=== PATIENT | female | born 1965 ===

== ENCOUNTER 2020-05-06 09:27 | Outpatient (REF) | payer OTHER, SELFPAY ==
[2020-05-06 10:37] LABS: Blood Urea Nitrogen 17 mg/dL (9-16); Estimated Glomerular Filt Rate > 60
== END 2020-05-06 09:28 | disposition home or self-care (01) ==
LOC: HO.10HDL 09:27
PROVIDERS: Visit Provider Surgery
DX: Z80.3 Family history of malignant neoplasm of breast (principal); Z91.89 Other specified personal risk factors, not elsewhere classified
CPT/HCPCS: 82565; 84520

== ENCOUNTER 2020-06-13 09:38 | Outpatient (REF) | payer OTHER, SELFPAY ==
--- NOTE | 2020-06-13 | MR_ITS ---
EXAMINATION: MR BREAST WITHOUT AND WITH CONTRAST, BILATERAL CLINICAL INFORMATION: High-risk screening. COMPARISON: MRI 06/09/2019, 04/23/2018 TECHNIQUE: Imaging was performed with a dedicated breast coil. Prior to the administration of contrast, bilateral axial T1 and bilateral axial T2 weighted sequences were obtained. After the uneventful administration of?6.5 mL of Gadavist, dynamic contrast-enhanced VIBRANT series through the breasts in the axial plane were performed. Subtracted images were performed and reviewed. A delayed sagittal sequence through both breasts was acquired. Additionally, CAD post-processing, including maximum intensity projections, 3-D reconstructions and kinetic analysis, were performed an independent workstation and reviewed by the interpreting radiologist is a portion of this exam. FINDINGS: The patient's fibroglandular tissue demonstrates minimal background enhancement. LEFT BREAST: No suspicious masslike or non-masslike enhancement. No abnormal skin thickening or nipple retraction. No abnormal architectural distortion. Review of the T2 weighted images demonstrates no fibrocystic changes or dilated ducts. Review of kinetic images reveals no additional findings. RIGHT BREAST: No suspicious masslike or non-masslike enhancement. No abnormal skin thickening or nipple retraction. No abnormal architectural distortion. Review of the T2 weighted images demonstrates no fibrocystic changes or dilated ducts. Review of kinetic images reveals no additional findings. There is no suspicious internal mammary chain or axillary adenopathy. Limited views of the chest and abdomen are unremarkable. MR/MR breast BI wo/w con IMPRESSION: No MR specific evidence of malignancy. ASSESSMENT: LEFT BREAST: BI-RADS 1-Negative RIGHT BREAST: BI-RADS 1-Negative RECOMMENDATIONS: Continued annual mammographic surveillance. Further breast MRI as risk factors dictate.
== END 2020-06-13 09:39 | disposition home or self-care (01) ==
LOC: HO.MRI 09:38
PROVIDERS: PCP Internal Medicine; Visit Provider Surgery
DX: Z12.31 Encounter for screening mammogram for malignant neoplasm of breast (principal); Z91.89 Other specified personal risk factors, not elsewhere classified; Z80.3 Family history of malignant neoplasm of breast
CPT/HCPCS: 77049; A9585

== ENCOUNTER → 2020-12-09 10:38 | Outpatient (BNVA) | payer OTHER, SELFPAY | PROVIDERS: PCP Internal Medicine; Referring Provider Internal Medicine; Visit Provider Surgery | DX: Z80.3 Family history of malignant neoplasm of breast (principal); Z12.39 Encounter for other screening for malignant neoplasm of breast | CPT/HCPCS: 99212 ==

== ENCOUNTER 2021-04-18 14:10 | Outpatient (REF) | payer OTHER, SELFPAY | END 2021-04-18 14:11 | disposition home or self-care (01) | LOC: HO.LAB 14:10 | PROVIDERS: PCP Internal Medicine; Visit Provider Internal Medicine | DX: Z20.822 Contact with and (suspected) exposure to COVID-19 (principal) | CPT/HCPCS: C9803; U0003; U0005 ==

== ENCOUNTER 2021-04-19 12:06 | Outpatient (REF) | payer OTHER, SELFPAY ==
--- NOTE | ~2021-04-19 | MM_ITS ---
EXAMINATION: MM SCREENING DIGITAL BREAST TOMOSYNTHESIS, BILATERAL CLINICAL INFORMATION: Screening. Asymptomatic. Family history breast cancer mother, sister. The lifetime risk of breast cancer based on the Tyrer-Cuzick Model is 17%. COMPARISON: Mammography: 03/01/2020, 02/20/2019, 02/18/2018; MRI breasts 06/13/2020. TECHNIQUE: Digital breast tomosynthesis is performed in both the craniocaudal and mediolateral oblique views along with computer-aided detection (CAD). Synthesized 2D images are generated from the tomosynthesis. FINDINGS: There are scattered areas of fibroglandular density (ACR BI-RADS breast composition Category b). Breast tissue composition borders on predominantly fatty. There are no significant masses, abnormal calcifications, or other abnormalities. There is biopsy clip marker central 12:00 right breast mid depth. The axilla and skin contours are unremarkable. MM/MM tomosynthesis screening BI IMPRESSION: No mammographic evidence of malignancy. ASSESSMENT: BI-RADS 1: Negative RECOMMENDATION: Routine annual mammography screening. This patient's information was entered into a reminder system with a target due date for their next mammogram.
== END 2021-04-19 12:07 | disposition home or self-care (01) ==
LOC: HO.MAMMO 12:06
PROVIDERS: PCP Internal Medicine; Visit Provider Internal Medicine
DX: Z12.31 Encounter for screening mammogram for malignant neoplasm of breast (principal)
CPT/HCPCS: 77063; 77067

== ENCOUNTER → 2021-05-31 08:30 | Outpatient (BNVA) | payer OTHER, SELFPAY | PROVIDERS: Visit Provider Advanced Practice Midwife ==

== ENCOUNTER → 2021-06-08 08:50 | Outpatient (BNVA) | payer OTHER, SELFPAY | PROVIDERS: PCP Internal Medicine; Visit Provider Surgery | DX: Z80.3 Family history of malignant neoplasm of breast (principal); Z12.39 Encounter for other screening for malignant neoplasm of breast | CPT/HCPCS: 99212 ==

== ENCOUNTER 2021-06-12 08:02 | Outpatient (REF) | payer OTHER, SELFPAY ==
--- NOTE | ~2021-06-12 | MR_ITS ---
EXAMINATION: MR BREAST WITHOUT AND WITH CONTRAST, BILATERAL CLINICAL INFORMATION: High-risk screening. Mother and sister with breast cancer. COMPARISON: MRI 06/13/2020, 06/09/2019, 04/23/2018 and priors. Mammography from 04/19/2021. TECHNIQUE: Imaging was performed with a dedicated breast coil. Prior to the administration of contrast, bilateral axial T1 and bilateral axial T2 weighted sequences were obtained. After the uneventful administration of?7 mL of Gadavist, dynamic contrast-enhanced VIBRANT series through the breasts in the axial plane were performed. Subtracted images were performed and reviewed. A delayed sagittal sequence through both breasts was acquired. Additionally, CAD post-processing, including maximum intensity projections, 3-D reconstructions and kinetic analysis, were performed an independent workstation and reviewed by the interpreting radiologist is a portion of this exam. FINDINGS: The breasts are comprised of scattered fibroglandular elements. The tissue undergoes mild background enhancement. LEFT BREAST: No suspicious mass, dominant non-mass enhancement or architectural distortion. Some minor artifact from positioning within the coil. No change from priors noted. RIGHT BREAST: No suspicious mass, dominant non-mass enhancement or architectural distortion. Some artifact from positioning within the coil. No significant change from prior noted. There is no suspicious internal mammary chain or axillary adenopathy. Limited views of the chest and abdomen are unremarkable. Unable to process examination through Renetta CAD. MR/MR breast BI wo/w con IMPRESSION: No MR specific evidence of malignancy. Technically incomplete examination. ASSESSMENT: LEFT BREAST: BI-RADS 0 RIGHT BREAST: BI-RADS 0 RECOMMENDATIONS: Repeat contrast portion of examination for CAD postprocessing.
== END 2021-06-12 08:03 | disposition home or self-care (01) ==
LOC: HO.MRI 08:02
PROVIDERS: Visit Provider Surgery
DX: Z12.39 Encounter for other screening for malignant neoplasm of breast (principal)
CPT/HCPCS: 77049; A9585

== ENCOUNTER 2021-07-10 10:29 | Outpatient (REF) | payer OTHER, SELFPAY ==
[2021-07-10 12:03] LABS: COVID-19 Test Negative (Negative)
== END 2021-07-10 10:30 | disposition home or self-care (01) ==
LOC: HO.LAB 10:29
PROVIDERS: PCP Internal Medicine; Visit Provider Internal Medicine
DX: Z20.822 Contact with and (suspected) exposure to COVID-19 (principal)
CPT/HCPCS: 36415; 87635; C9803

== ENCOUNTER 2021-08-14 07:48 | Outpatient (REF) | payer OTHER, SELFPAY ==
[2021-08-14 10:21] LABS: Basophils Absolute Auto 0.1 X10*3/uL (0.0-0.2); Eosinophils Absolute Auto 0.1 X10*3/uL (0.0-0.4); Eosinophils Percent Auto 1.4 % (0-4); Hematocrit 39.7 % (37.0-47.0); Imm Gran Abs Auto 0.01 X10*3/uL (0.00-0.03); Imm Gran Pct Auto 0.2 % (0.0-0.4); Lymphocytes Absolute Auto 1.8 X10*3/uL (1.2-4.9); Lymphocytes Percent Auto 30.9 % (20-40); MANUAL DIFF FLAG NO; Mean Corpuscular HGB Conc 32.7 g/dl (31.0-35.0); Mean Corpuscular Hemoglobin 30.2 pg (27.0-33.0); Mean Corpuscular Volume 92.3 fL (80.0-98.0); Mean Platelet Volume 9.1 fL (9.4-12.3); Monocytes Absolute Auto 0.4 X10*3/uL (0.1-1.2); Monocytes Percent Auto 7.1 % (2-11); Neutrophils Absolute Auto 3.5 x10*3/uL (2.0-8.3); Neutrophils Percent Auto 59.4 % (45-73); Platelet Count 309 X10*3/uL (160-400); White Blood Count 5.8 X10*3/uL (4.8-10.8)
[2021-08-14 11:09] LABS: Alanine Aminotransferase 24 U/L (0-31); Albumin Level 4.3 g/dL (3.5-5.0); Alkaline Phosphatase 50 U/L (39-117); Anion Gap 12 (12-20); Aspartate Amino Transferase 22 U/L (5-31); Bilirubin Total 0.5 mg/dL (0.0-1.0); Blood Urea Nitrogen 20 mg/dL (9-16); Calcium 9.8 mg/dL (8.4-10.2); Carbon Dioxide 28 mmol/L (22-29); Chloride 105 mmol/L (96-108); Cholesterol 236 mg/dL; Estimated Glomerular Filt Rate > 60; Glucose Random 82 mg/dL (60-115); HDL Cholesterol 87 mg/dL; LDL Cholesterol Calculated 132 mg/dl; Potassium 4.3 mmol/L (3.3-5.1); Sodium 141 mmol/L (135-145); Total Protein 7.4 g/dL (6.5-8.0); Triglycerides 88 mg/dL
[2021-08-14 11:17] LABS: Free T4 (Free Thyroxine) 1.04 ng/dL (0.71-1.85); Thyroid Stimulating Hormone 1.49 uIU/mL (0.32-4.0); Vitamin D 25-OH Total 27.4 ng/mL (>30)
[2021-08-14 11:39] LABS: Folate 16.6 ng/mL (> or = 4.0); Vitamin B12 > 2000 pg/mL (200-900)
== END 2021-08-14 07:49 | disposition home or self-care (01) ==
LOC: HO.10HDL 07:48
PROVIDERS: Visit Provider Internal Medicine
DX: E03.9 Hypothyroidism, unspecified (principal); E78.00 Pure hypercholesterolemia, unspecified
CPT/HCPCS: 36415; 80053; 80061; 82306; 82607; 82746; 84439; 84443; 85025

== ENCOUNTER 2021-08-30 10:12 | Outpatient (REF) | payer OTHER, SELFPAY ==
[2021-08-30 10:25] LABS: COVID-19 Test Positive (Negative)
== END 2021-08-30 10:13 | disposition home or self-care (01) ==
LOC: HO.LAB 10:12
PROVIDERS: Visit Provider Internal Medicine
DX: Z20.822 Contact with and (suspected) exposure to COVID-19 (principal)
CPT/HCPCS: 87635; C9803

== ENCOUNTER 2021-09-06 12:13 | Outpatient (REF) | payer OTHER, SELFPAY ==
[2021-09-06 12:56] LABS: COVID-19 Test Negative (Negative); IDNOW Serial# 16C4AD1C
== END 2021-09-06 12:14 | disposition home or self-care (01) ==
LOC: HO.LAB 12:13
PROVIDERS: Visit Provider Internal Medicine
DX: Z20.822 Contact with and (suspected) exposure to COVID-19 (principal)
CPT/HCPCS: 87635; C9803

== ENCOUNTER → 2021-12-07 10:03 | Outpatient (BNVA) | payer OTHER, SELFPAY | PROVIDERS: PCP Internal Medicine; Referring Provider Internal Medicine; Visit Provider Surgery | DX: Z12.39 Encounter for other screening for malignant neoplasm of breast (principal) | CPT/HCPCS: 99212 ==

== ENCOUNTER 2022-03-19 11:23 | Outpatient (REF) | payer OTHER, SELFPAY ==
[2022-03-19 13:54] LABS: Appearance Urine Turbid; Color Urine Dark Yellow; Glucose Urine UA Negative (Negative); Leukocyte Esterase Urine Negative (Negative); Nitrite Urine Negative (Negative); PH 5.5 (5.0-8.0); Specific Gravity - Urine >= 1.030 (1.005-1.025); Urine Blood Negative (Negative); Urine Ketones Trace mg/dL (Negative); Urine Protein Trace mg/dL (Neg-Trace)
== END 2022-03-19 11:24 | disposition home or self-care (01) ==
LOC: HO.10HDL 11:23
PROVIDERS: Visit Provider Internal Medicine
DX: R30.0 Dysuria (principal)
CPT/HCPCS: 81003

== ENCOUNTER 2022-04-26 11:23 | Outpatient (REF) | payer OTHER, SELFPAY ==
--- NOTE | ~2022-04-26 | MM_ITS ---
EXAMINATION: MM SCREENING DIGITAL BREAST TOMOSYNTHESIS, BILATERAL CLINICAL INFORMATION: Screening. Asymptomatic. Family history breast cancer, mother, sister. The lifetime risk of breast cancer based on the Tyrer-Cuzick Model is 16%. COMPARISON: Mammography: 04/19/2021, 03/01/2020, 02/20/2019; MRI breasts 06/12/2021. TECHNIQUE: Digital breast tomosynthesis is performed in both the craniocaudal and mediolateral oblique views along with computer-aided detection (CAD). Synthesized 2D images are generated from the tomosynthesis. FINDINGS: There are scattered areas of fibroglandular density (ACR BI-RADS breast composition Category b). There are no significant masses, abnormal calcifications, or other abnormalities. Parenchymal pattern is similar to prior studies. There is no developing density or architectural abnormality. There is biopsy clip marker again seen central upper right breast mid depth. The axilla and skin contours are unremarkable. No significant changes. MM/MM tomosynthesis screening BI IMPRESSION: No mammographic evidence of malignancy. ASSESSMENT: BI-RADS 1: Negative RECOMMENDATION: Routine annual mammography screening. This patient's information was entered into a reminder system with a target due date for their next mammogram.
== END 2022-04-26 11:24 | disposition home or self-care (01) ==
LOC: HO.MAMMO 11:23
PROVIDERS: PCP Internal Medicine; Visit Provider Internal Medicine
DX: Z12.31 Encounter for screening mammogram for malignant neoplasm of breast (principal)
CPT/HCPCS: 77063; 77067

== ENCOUNTER → 2022-07-03 12:50 | Outpatient (BNVA) | payer OTHER, SELFPAY | PROVIDERS: PCP Internal Medicine; Visit Provider Surgery | DX: Z91.89 Other specified personal risk factors, not elsewhere classified (principal); Z80.3 Family history of malignant neoplasm of breast | CPT/HCPCS: 99212 ==

== ENCOUNTER 2022-07-18 09:31 | Outpatient (REF) | payer OTHER, SELFPAY ==
[2022-07-19 09:28] LABS: HPV mRNA E6/E7 rflx Not Detected (Not Detected)
== END 2022-07-18 09:32 | disposition home or self-care (01) ==
LOC: HO.LNP 09:31
PROVIDERS: PCP Internal Medicine; Visit Provider Advanced Practice Midwife
DX: Z01.419 Encounter for gynecological examination (general) (routine) without abnormal findings (principal); Z11.51 Encounter for screening for human papillomavirus (HPV); N95.1 Menopausal and female climacteric states
CPT/HCPCS: 87624; 88142

== ENCOUNTER 2022-08-23 08:55 | Outpatient (REF) | payer OTHER, SELFPAY ==
--- NOTE | ~2022-08-23 | MR_ITS ---
EXAMINATION: MR BREAST WITHOUT AND WITH CONTRAST, BILATERAL CLINICAL INFORMATION: High-risk screening. Family history of breast cancer including mother, sister, maternal aunt, maternal grandmother. COMPARISON: MRI 06/12/2021, 06/13/2020 TECHNIQUE: Imaging was performed with a dedicated breast coil. Prior to the administration of contrast, bilateral axial T1 and bilateral axial T2 weighted sequences were obtained. After the uneventful administration of?7.5 mL of Gadavist, dynamic contrast-enhanced VIBRANT series through the breasts in the axial plane were performed. Subtracted images were performed and reviewed. A delayed sagittal sequence through both breasts was acquired. Additionally, CAD post-processing, including maximum intensity projections, 3-D reconstructions and kinetic analysis, were performed an independent workstation and reviewed by the interpreting radiologist is a portion of this exam. FINDINGS: The patient's fibroglandular tissue demonstrates moderate background enhancement. LEFT BREAST: No suspicious masslike or non-masslike enhancement. No abnormal skin thickening or nipple retraction. No abnormal architectural distortion. Review of the T2 weighted images demonstrates no fibrocystic changes or dilated ducts. Review of kinetic images reveals no additional findings. RIGHT BREAST: No suspicious masslike or non-masslike enhancement. No abnormal skin thickening or nipple retraction. No abnormal architectural distortion. Review of the T2 weighted images demonstrates no fibrocystic changes or dilated ducts. Review of kinetic images reveals no additional findings. There is no suspicious internal mammary chain or axillary adenopathy. Limited views of the chest and abdomen are unremarkable. MR/MR breast BI wo/w con IMPRESSION: No MR specific evidence of malignancy. ASSESSMENT: LEFT BREAST: BI-RADS 1-Negative RIGHT BREAST: BI-RADS 1-Negative RECOMMENDATIONS: Clinical follow-up. Continued annual mammographic surveillance. Further breast MRI as risk factors dictate.
== END 2022-08-23 08:56 | disposition home or self-care (01) ==
LOC: HO.MRI 08:55
PROVIDERS: PCP Internal Medicine; Visit Provider Surgery
DX: Z12.39 Encounter for other screening for malignant neoplasm of breast (principal)
CPT/HCPCS: 77049; A9585

== ENCOUNTER 2022-10-09 08:08 | Outpatient (REF) | payer OTHER, SELFPAY ==
[2022-10-09 10:46] LABS: MANUAL DIFF FLAG NO
[2022-10-09 10:55] LABS: Basophils Absolute Auto 0.1 X10*3/uL (0.0-0.2); Eosinophils Absolute Auto 0.1 X10*3/uL (0.0-0.4); Hematocrit 39.4 % (37.0-47.0); Hemoglobin 12.6 g/dl (12.0-16.0); Imm Gran Abs Auto 0.01 X10*3/uL (0.00-0.03); Imm Gran Pct Auto 0.1 % (0.0-0.4); Lymphocytes Absolute Auto 1.9 X10*3/uL (1.2-4.9); Lymphocytes Percent Auto 26.9 % (20-40); Mean Corpuscular Hemoglobin 29.4 pg (27.0-33.0); Mean Corpuscular Volume 91.8 fL (80.0-98.0); Mean Platelet Volume 9.6 fL (9.4-12.3); Monocytes Absolute Auto 0.4 X10*3/uL (0.1-1.2); Monocytes Percent Auto 5.6 % (2-11); Neutrophils Absolute Auto 4.7 x10*3/uL (2.0-8.3); Neutrophils Percent Auto 65.4 % (45-73); Platelet Count 336 X10*3/uL (160-400); Red Blood Count 4.29 X10*6/uL (4.20-5.50); Red Cell Distribution Width 14.1 % (11.0-16.0); White Blood Count 7.1 X10*3/uL (4.8-10.8)
[2022-10-09 11:28] LABS: Erythrocyte Sedimentation Rate 7 MM/HR (0-20)
[2022-10-09 11:49] LABS: Alanine Aminotransferase 20 U/L (0-31); Albumin Level 4.2 g/dL (3.5-5.0); Alkaline Phosphatase 56 U/L (39-117); Anion Gap 10 (12-20); Aspartate Amino Transferase 19 U/L (5-31); Bilirubin Total 0.7 mg/dL (0.0-1.0); Blood Urea Nitrogen 23 mg/dL (9-16); C Reactive Protein 0.15 mg/dL (< or = 0.50); Calcium 9.5 mg/dL (8.4-10.2); Carbon Dioxide 29 mmol/L (22-29); Chloride 107 mmol/L (96-108); Cholesterol 227 mg/dL; Estimated Glomerular Filt Rate > 60; Glucose Random 89 mg/dL (60-115); HDL Cholesterol 88 mg/dL; LDL Cholesterol Calculated 123 mg/dl; Potassium 4.3 mmol/L (3.3-5.1); Sodium 142 mmol/L (135-145); Total Protein 6.9 g/dL (6.5-8.0); Triglycerides 83 mg/dL
[2022-10-09 12:10] LABS: Free T4 (Free Thyroxine) 0.94 ng/dL (0.71-1.85); Thyroid Stimulating Hormone 0.82 uIU/mL (0.32-4.0); Vitamin B12 1129 pg/mL (200-900); Vitamin D 25-OH Total 29.2 ng/mL (>30)
== END 2022-10-09 08:09 | disposition home or self-care (01) ==
LOC: HO.10HDL 08:08
PROVIDERS: Visit Provider Internal Medicine
DX: M06.9 Rheumatoid arthritis, unspecified (principal); E78.00 Pure hypercholesterolemia, unspecified
CPT/HCPCS: 36415; 80053; 80061; 82306; 82607; 82746; 84439; 84443; 85025; 85652; 86140

== ENCOUNTER → 2022-12-25 11:34 | Outpatient (BNVA) | payer OTHER, SELFPAY | PROVIDERS: PCP Internal Medicine; Visit Provider Surgery | DX: Z12.39 Encounter for other screening for malignant neoplasm of breast (principal) | CPT/HCPCS: 99212 ==

== ENCOUNTER 2023-02-26 15:22 | Outpatient (AMB) | payer OTHER, SELFPAY ==
[2023-02-26 15:32] VITALS: BP 122/80; PULSE 77; O2SAT 98; BMI 29.8
--- NOTE | 2023-02-26 15:32 | A.OFFPC_ITS ---
Vital Signs 02/26/23 15:32 Height 5 ft 2 in Weight 163 lb BMI 29.8 BP 122/80 Blood Pressure Location Lt brachial Position Sitting Pulse 77 Pulse Source Pulse Oximeter Temp Source Skin Pulse Oximetry (%) 98 Oxygen Delivery Method Room Air Intake Visit Reasons: surgery 03/19/23 Intake Note: Patient is here for a Pre-op for a panniculectomy scheduled with [facility] Hernandez on 03/19/23 Aircraft Avionics Technician Required: Yes Aircraft Avionics Technician Language: Ukrainian Allergies leflunomide Allergy (Unknown, Verified 02/26/23 15:39) abd pain oseltamivir Adverse Reaction (Unknown, Verified 02/26/23 15:39) dizziness, headaches, ringing in the ears ?IVP dye Allergy (Unknown, Uncoded 02/26/23 15:39) headache, nausea unknown arthrits medication Allergy (Unknown, Uncoded 02/26/23 15:39) stomach upset Contrast Allergy PreMed Pack Adverse Reaction (Unknown, Uncoded 02/26/23 15:39) stomach upset Medication List - Last Reconciled 02/26/23 by MORALES Holbrook albuterol sulfate 90 mcg/actuation (ProAir HFA) 2 puffs inhalation QID PRN cholecalciferol (vitamin D3) 50 mcg PO DAILY 90 days folic acid 1 mg PO DAILY hydrocodone-acetaminophen 7.5-325 mg 1 tab PO QID PRN ibuprofen 800 mg PO TID loratadine (Allergy Relief (loratadine)) 10 mg PO DAILY methotrexate sodium 17.5 mg PO QWEEK mometasone 0.1% 1 appl topical DAILY mupirocin 2% 1 appl topical BID omeprazole 20 mg PO DAILY Tobacco use date assessed: 02/26/23 Dental Screening Dental Screen Date: 02/26/23 Did you have a dental visit in the last 12 months?: Yes Did you have a dental problem in the last 6 months where you did not have access to dental care?: No Was dental information given to patient?: Patient has dentist HPI surgery 03/19/23 HPI Details Patient is a 57-year-old female who presents today for preop clearance. Pt of Dr. Ambrocio Surgery: Panniculectomy Date: 03/19/2023 Surgeon: Dr. Hernandez Location: [place], [place] Anaesthesia: General. Patient reports history of general anesthesia in the past that she tolerated well. Patient denies history of perioperative hypothermia or blood clotting disorders. She is not on anticoagulation. Medical history significant for asthma, allergic rhinitis, history of sleeve gastrectomy in 2016, rheumatoid arthritis-followed by Rheumatology, eczema, hypercholesterolemia, abdominal panniculus, GERD. Patient denies shortness of breath or chest pain. Patient is a Ukrainian-speaking and Bea was helping with interpretation. [facility] Medical History Allergic rhinitis Asthma Breast cancer screening, high risk patient Cervical cancer screening Hypothyroid Lumbar degenerative disc disease Rheumatoid arthritis Vitamin D deficiency Well woman exam with routine gynecological exam Surgical History H/O tubal ligation History of breast biopsy History of cholecystectomy History of gastric surgery (12/2015) History of removal of laparoscopic gastric banding device (10/03/15) History of sleeve gastrectomy Hx of laparoscopic gastric banding (01/2010) Family History Father Family history of prostate cancer, Onset Age: 70 Mother History of breast cancer, Onset Age: 55 Sister History of breast cancer, Onset Age: 47 Maternal Grandmother History of breast cancer, Onset Age: 58 Colon cancer Maternal Aunt History of breast cancer, Onset Age: 37 Maternal Aunt History of breast cancer, Onset Age: 40 Social History Housing: Apartment Alcohol intake: current Patient Tobacco Use Status: Never used Tobacco e-Cigarette/Vaping Use: Never Used Second Hand Smoke Exposure: No Current occupational status: unemployed Cognitive needs: No Hearing needs: No Vision needs: No Female Reproductive History Menstrual Age of Menarche: 8 Questionnaire Thrive Questionnaire Date Thrive assessed: 11/06/22 AUDIT C Alcohol Use Questionnaire (AUDIT-C) 1. How often do you have a drink containing alcohol?: Monthly or less 2. How many drinks containing alcohol do you have on a typical day when you are drinking?: 1 or 2 3. How often do you have six or more drinks on one occasion?: Never Total Score: 1 Score Reviewed/Action Taken: No JASMIN-7 AMB Questionnaire JASMIN-7 Date JASMIN - 7 assessed: 11/06/22 Source: Developed by Drs. Jean Pierre Mcdaniel, Mayra Kilgore, Jerrod Ruth and colleagues, with an educational christiano from [employer]. Review of Systems Const Denies body aches, Denies chills, Denies fever(s) and Denies headache(s) Eyes Denies change in vision ENT Denies dizziness, Denies otalgia, Denies headache(s), Denies nasal discharge, Denies sinus pain and Denies sore throat Card Denies chest pain, Denies edema, Denies lightheadedness and Denies dyspnea Resp Denies cough, Denies dyspnea and Denies wheezing GI Denies constipation, Denies diarrhea, Denies nausea and Denies vomiting Denies dysuria Musc Denies myalgias and Reports arthralgias (Right knee) Skin/Breast Details: Abdomen with excess skin Denies rash Neuro Denies dizziness and Denies headache(s) Aller/Immun Denies wheezing Physical exam (Primary Care) Vital Signs: Last Vital Signs Pulse 77 02/26/23 15:32 BP 122/80 02/26/23 15:32 Pulse Ox 98 02/26/23 15:32 Oxygen Delivery Method Room Air 02/26/23 15:32 BMI result Body Mass Index 29.8 Tobacco/Smoking Status: Tobacco use Status Tobacco use date assessed 02/26/23 02/26/23 15:37 Patient Tobacco Use Status Never used Tobacco 02/26/23 15:33 Tobacco use type 07/03/21 15:21 e-Cigarette/Vaping Use Never Used 02/26/23 15:33 Thrive Assessment: Date of Thrive Assessment Date Thrive assessed 11/06/22 02/26/23 15:33 Const General: cooperative and no acute distress Orientation/consciousness: patient oriented x3 HENMT Head: Yes normocephalic and Yes atraumatic Ears: TM's normal bilaterally Face and sinus: Yes sinuses nontender Mouth: oropharynx normal and moist mucous membranes Throat: Yes posterior oropharynx normal Eyes General: appearance normal, both eyes and all related structures Pupils: Equal, round and reactive pupils present EOM: EOMs intact bilaterally Neck Neck: Yes normal visual inspection, Yes full ROM and Yes no lymphadenopathy Thyroid: Thyroid normal Resp Effort & Inspection: normal respiratory effort and able to speak in complete sentences Auscultation: clear to auscultation bilaterally, no crackles, no rales, no rhonchi and no wheezes Cardio Rate: regular rate Rhythm: regular rhythm Heart sounds: S1 normal heart sound present, S2 normal heart sound present and no murmurs GI Palpation (GI): Soft to palpation, not firm, nontender, no guarding, not rigid and no hepatosplenomegaly Auscultation: normal bowel sounds General: No CVA tenderness Back/Spine/Pelvis Back: No CVA tenderness Skin Other: Low abdomen with abdominal fold General skin exam: no rashes or lesions noted Neuro General: patient oriented x3 Cranial nerves: Yes Equal, round and reactive pupils present Gait exam (Neuro): Normal gait present Extrem General: Yes full ROM and No edema Results Reviewed Results Reviewed: Laboratory Tests 02/27/23 02/27/23 02/27/23 09:58 09:58 09:58 WBC 5.9 RBC 4.34 Hgb 12.6 Hct 39.4 MCV 90.8 MCH 29.0 MCHC 32.0 RDW 13.9 Plt Count 335 MPV 9.2 L Absolute Nucleated RBC 0.000 Nucleated RBC % (auto) 0.0 PT 10.9 L INR 0.9 Sodium 141 Potassium 4.0 Chloride 108 Carbon Dioxide 27 Anion Gap 10 L BUN 23 H Creatinine 0.71 Estim Creat Clear Calc Not Reportable Estimated GFR > 60 Random Glucose 91 Calcium 9.6 Total Bilirubin 0.4 AST 18 ALT 21 Alkaline Phosphatase 65 Total Protein 7.3 Albumin 4.1 TSH 1.42 Assessment and Plan Assessment & Plan (1) Preoperative clearance: Code(s): Z01.818 - Encounter for other preprocedural examination Plan: METs > 4; RCRI Class 1 cardiovascular risk 0.4% for an intermediate risk surgery (recent blood work 02/2023) Regarding preop clearance, the patient is at acceptable risk for proposed surgery. Reviewed with the patient that no surgery is completely free of risk and that this examination is to assist the surgeon in reviewing informed consent. Postop care including DVT prophylaxis per surgeon. Patient is cleared for surgery. Patient will be holding methotrexate and ibuprofen 1 week before surgery. On the day of surgery patient can use albuterol inhaler and omeprazole, and all other medications after surgery. Ordering Physician: Imelda Garcia Date of Service: 02/27/23 Procedure(s): ECG 12 lead EKG Accession Number(s): [id number] cc: Imelda Garcia DOPE HEATER~ Test Reason : preop Blood Pressure : / mmHG Vent. Rate : 061 BPM ? ? Atrial Rate : 061 BPM ?? P-R Int : 152 ms? QRS Dur : 070 ms ? ? QT Int : 410 ms ? ? ? P-R-T Axes : 015 043 030 degrees ?? QTc Int : 412 ms ? Normal sinus rhythm Normal ECG When compared with ECG of 09-NOV-2010 12:29, No significant change was found ? Referred By: Imelda Garcia ? Electronically Signed By:Ulisses Valle (2) Abdominal panniculus: Code(s): E65 - Localized adiposity Plan: Surgery: Panniculectomy Date:? 03/19/2023 Surgeon:? Dr. Hernandez Location: [place], [place] Orders: Orders Comprehensive Met. Panel 02/27/23 Z.818 - Encounter for other preprocedural examination TSH reflex Free T4 02/27/23 Z01.818 - Encounter for other preprocedural examination Prothrombin Time INR 02/27/23 Z.818 - Encounter for other preprocedural examination ECG 12 lead EKG 02/27/23 Z.818 - Encounter for other preprocedural examination Complete Blood Count no Diff 02/27/23 Z818 - Encounter for other preprocedural examination Coding Level of Care Code Est Pt Level 3 (05824) Diagnoses Preoperative clearance Z.818 Abdominal panniculus E65
== END 2023-02-26 16:06 | disposition home or self-care (01) ==
PROVIDERS: PCP Internal Medicine; Visit Provider Nurse Practitioner Family
DX: Z01.818 Encounter for other preprocedural examination (principal); E65 Localized adiposity
CPT/HCPCS: 99213

== ENCOUNTER 2023-02-27 09:37 | Outpatient (REF) | payer OTHER, SELFPAY ==
--- NOTE | 2023-02-27 09:44 | ECG_ITS ---
Test Reason : preop Blood Pressure : / mmHG Vent. Rate : 061 BPM Atrial Rate : 061 BPM P-R Int : 152 ms QRS Dur : 070 ms QT Int : 410 ms P-R-T Axes : 015 043 030 degrees QTc Int : 412 ms Normal sinus rhythm Normal ECG When compared with ECG of 09-NOV-2010 12:29, No significant change was found Referred By: Imelda Garcia Electronically Signed By:Ulisses Valle
[2023-02-27 10:45] LABS: Hematocrit 39.4 % (37.0-47.0); Hemoglobin 12.6 g/dl (12.0-16.0); Mean Corpuscular Volume 90.8 fL (80.0-98.0); Mean Platelet Volume 9.2 fL (9.4-12.3); Platelet Count 335 X10*3/uL (160-400); Red Blood Count 4.34 X10*6/uL (4.20-5.50); Red Cell Distribution Width 13.9 % (11.0-16.0); White Blood Count 5.9 X10*3/uL (4.8-10.8)
[2023-02-27 10:49] LABS: INTERNATIONAL NORM RATIO 0.9 (0.9-1.1); Prothrombin Time 10.9 SEC (11.1-13.3)
[2023-02-27 11:31] LABS: Alanine Aminotransferase 21 U/L (0-31); Albumin Level 4.1 g/dL (3.5-5.0); Alkaline Phosphatase 65 U/L (39-117); Anion Gap 10 (12-20); Aspartate Amino Transferase 18 U/L (5-31); Bilirubin Total 0.4 mg/dL (0.0-1.0); Blood Urea Nitrogen 23 mg/dL (9-16); Calcium 9.6 mg/dL (8.4-10.2); Carbon Dioxide 27 mmol/L (22-29); Chloride 108 mmol/L (96-108); Estimated Glomerular Filt Rate > 60; Glucose Random 91 mg/dL (60-115); Sodium 141 mmol/L (135-145); Total Protein 7.3 g/dL (6.5-8.0)
[2023-02-27 11:49] LABS: TSH reflex Free T4 1.42 uIU/mL (0.32-4.0)
== END 2023-02-27 09:38 | disposition home or self-care (01) ==
LOC: HO.LAB 09:37
PROVIDERS: PCP Internal Medicine; Visit Provider Nurse Practitioner Family
DX: Z01.818 Encounter for other preprocedural examination (principal)
CPT/HCPCS: 36415; 80053; 84443; 85027; 85610; 93005

== ENCOUNTER → 2023-02-27 09:44 | Outpatient (BNV) | payer OTHER, SELFPAY | PROVIDERS: PCP Internal Medicine; Visit Provider Internal Medicine Cardiovascular Disease | DX: Z01.818 Encounter for other preprocedural examination (principal); E65 Localized adiposity | CPT/HCPCS: 93010 ==

== ENCOUNTER 2023-05-03 10:30 | Outpatient (REF) | payer OTHER, SELFPAY ==
--- NOTE | ~2023-05-03 | MM_ITS ---
EXAMINATION: MM SCREENING DIGITAL BREAST TOMOSYNTHESIS, BILATERAL CLINICAL INFORMATION: Screening. Asymptomatic. COMPARISON: Mammography: This study is compared with prior exams dating back to 2019. TECHNIQUE: Digital breast tomosynthesis is performed in both the craniocaudal and mediolateral oblique views along with computer-aided detection (CAD). Synthesized 2D images are generated from the tomosynthesis. FINDINGS: There are scattered areas of fibroglandular density (ACR BI-RADS breast composition Category b). There are no significant masses, abnormal calcifications, or other abnormalities. There is a tissue marker in the superior aspect of the right breast from prior benign percutaneous biopsy. MM/MM tomosynthesis screening BI IMPRESSION: No mammographic evidence of malignancy. ASSESSMENT: BI-RADS BI-RADS 2 - Benign Findings RECOMMENDATION: Routine annual mammography screening. 1 year F/U This examination should not preclude the clinical evaluation of a suspicious palpable abnormality. This patient's information was entered into a reminder system with a target due date for their next mammogram.
== END 2023-05-03 10:31 | disposition home or self-care (01) ==
LOC: HO.MAMMO 10:30
PROVIDERS: PCP Internal Medicine; Visit Provider Internal Medicine
DX: Z12.31 Encounter for screening mammogram for malignant neoplasm of breast (principal)
CPT/HCPCS: 77063; 77067

== ENCOUNTER → 2023-05-03 10:30 | Outpatient (BNV) | payer OTHER, SELFPAY | PROVIDERS: PCP Internal Medicine; Visit Provider Radiology Diagnostic Radiology | DX: Z12.31 Encounter for screening mammogram for malignant neoplasm of breast (principal) | CPT/HCPCS: 77063; 77067 ==

== ENCOUNTER 2023-07-02 11:01 | Outpatient (AMB) | payer OTHER, SELFPAY ==
--- NOTE | 2023-07-02 11:03 | A.OFFVIS_ITS ---
Intake Vital Signs 07/02/23 11:09 Height 5 ft 2 in Weight 155 lb BMI 28.3 BP 130/73 Blood Pressure Location Lt brachial Position Sitting Pulse 81 Intake Visit Reasons: 6 months breast exam Intake Note: Patient is seen in office for 6 month follow up visit, breast exam. 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 Design Engineer: Aircraft Structural Design Engineer Present Accompanied by: Self / Same As Patient Allergies leflunomide Allergy (Unknown, Verified 07/02/23 11:04) abd pain oseltamivir Adverse Reaction (Unknown, Verified 07/02/23 11:04) dizziness, headaches, ringing in the ears ?IVP dye Allergy (Unknown, Uncoded 07/02/23 11:04) headache, nausea unknown arthrits medication Allergy (Unknown, Uncoded 07/02/23 11:04) stomach upset Contrast Allergy PreMed Pack Adverse Reaction (Unknown, Uncoded 07/02/23 11:04) stomach upset Medication List - Last Reconciled 07/02/23 by Bud Sabillon MD albuterol sulfate 90 mcg/actuation (ProAir HFA) 2 puffs inhalation QID PRN cholecalciferol (vitamin D3) 50 mcg PO DAILY 90 days folic acid 1 mg PO DAILY hydrocodone-acetaminophen 7.5-325 mg 1 tab PO QID PRN ibuprofen 800 mg PO TID loratadine (Allergy Relief (loratadine)) 10 mg PO DAILY methotrexate sodium 17.5 mg PO QWEEK mometasone 0.1% 1 appl topical DAILY mupirocin 2% 1 appl topical BID omeprazole 20 mg PO DAILY HPI HPI Comments History of Present Illness Details 57-year-old female patient returning for a routine breast examination. She has a strong family history for breast cancer is considered a high risk for breast cancer due to her mother, sisters, maternal grandmother, and maternal aunt having been diagnosed with breast cancer. Her maternal aunt from breast cancer. She denies any new members of her family with cancer. Her initial Alysha score lifetime risk of breast cancer was determined to be 30.9 % placing her at high risk for breast cancer. She was followed by Dr. Bundy and placed on the high risk protocol including yearly mammogram and MRI evaluations. She previously underwent a right breast needle core biopsy which was benign. She reports her menarche at the age of 10, she is , her 1st child was born when she was 17, she did not breast feed her children. She is postmenopausal and her last menstrual period was at the age of 48. She underwent genetic testing in 2019 which confirmed remaining lifetime risk of breast cancer of approximately 31%. No known genetic mutations of clinical significance were identified however 1 significant of unknown significance was identified. Her last mammogram dated 05/03/2023 revealed no mammographic specific evidence of malignancy (BI-RADS 2). MRI dated 09/13/2022 revealed no MR specific evidence of malignancy (BI-RADS 1 right, BI-RADS 1 left). She feels her left breast is larger than the right breast but denies any palpable mass, breast pain or enlarged lymph nodes. [facility] Medical History Well woman exam with routine gynecological exam Lumbar degenerative disc disease Vitamin D deficiency Allergic rhinitis Hypothyroid Asthma Cervical cancer screening Rheumatoid arthritis Breast cancer screening, high risk patient Surgical History H/O tubal ligation History of cholecystectomy History of sleeve gastrectomy History of breast biopsy History of gastric surgery (12/2015) History of removal of laparoscopic gastric banding device (10/03/15) Hx of laparoscopic gastric banding (01/2010) Family History Father Family history of prostate cancer, Onset Age: 70 Mother History of breast cancer, Onset Age: 55 Sister History of breast cancer, Onset Age: 47 Maternal Grandmother History of breast cancer, Onset Age: 58 Colon cancer Maternal Aunt History of breast cancer, Onset Age: 37 Maternal Aunt History of breast cancer, Onset Age: 40 Social History Housing: Apartment Alcohol intake: current Patient Tobacco Use Status: Never used Tobacco e-Cigarette/Vaping Use: Never Used Second Hand Smoke Exposure: No Current occupational status: unemployed Cognitive needs: No Hearing needs: No Vision needs: No Female Reproductive History Menstrual Age of Menarche: 8 Review of Systems Const Denies chills, Denies fever(s), Denies headache(s) and Denies poor appetite ENT Denies dizziness and Denies headache(s) Card Denies chest pain, Denies rapid heart rate, Denies palpitations and Denies slow heart rate Resp Denies chest congestion, Denies cough, Denies pain on inspiration and Denies wheezing GI Denies abdominal pain, Denies bloating, Denies change in stool character, Denies constipation, Denies diarrhea, Denies nausea, Denies vomiting and Denies hematemesis Denies nipple discharge Musc Details: Rheumatoid arthritis Skin/Breast Denies breast swelling, Denies breast skin changes, Denies breast pain, Denies breast mass, Denies change in breast shape, Denies change in pigmentation, Denies nipple discharge, Denies erythema and Denies rash Neuro Denies dizziness and Denies headache(s) Psych Denies anxiety and Denies depression Endo Denies palpitations Raphael/Lymph Denies easy bleeding, Denies easy bruising and Denies lymphadenopathy Aller/Immun Denies wheezing Physical Exam Vital Signs: Last Vital Signs Pulse 81 07/02/23 11:09 BP 130/73 07/02/23 11:09 BMI result Body Mass Index 28.3 Const General: cooperative, comfortable and well developed Nutritional Appearance: well nourished Orientation/consciousness: patient oriented x3 Eyes Sclerae: sclerae normal EOM: EOMs intact bilaterally Neck Neck: Yes normal visual inspection Lymphatic: no lymphadenopathy noted Chest Other: Left breast: No skin change, no nipple retraction, no nipple discharge, no palpable mass, no enlarged lymph nodes. Right breast: No skin change, no nipple retraction, no nipple discharge, no palpable mass, no enlarged lymph nodes Resp Effort & Inspection: normal respiratory effort, no cough, no respiratory distress and no stridor Cardio Jugular venous distension: no JVD GI Inspection: Yes normal to inspection Palpation (GI): Soft to palpation, nontender, no guarding and not rigid Skin General skin exam: dry skin Rashes: no rashes Neuro General: patient oriented x3 and no focal motor deficits Extrem General: Yes full ROM and Yes no clubbing, cyanosis or edema Psych Appearance: grossly normal Assessment & Plan Assessment & Plan (1) Breast cancer screening, high risk patient: Comment: Alysha model 34% lifetime risk Code(s): Z12.39 - Encounter for other screening for malignant neoplasm of breast Plan: Patient returns for follow-up breast examination due to her high risk for breast cancer. She continues to do well and shows no evidence of breast disease at this time. Her most recent mammogram of 05/03/2023 revealed no suspicious findings (BI-RADS 2). MRI dated 09/13/2022 revealed no MR specific evidence of malignancy (BI-RADS 1 bilaterally). She is due for follow-up breast MRI in August 2023 and should return in 6 months for routine breast examination. She is welcome to call sooner for any new concerns. Coding Level of Care Code Est Pt Level 3 (12863) Diagnoses Breast cancer screening, high risk patient Z12.39
[2023-07-02 11:09] VITALS: BP 130/73; PULSE 81; BMI 28.3
== END 2023-07-02 11:34 | disposition home or self-care (01) ==
PROVIDERS: PCP Internal Medicine; Visit Provider Surgery
DX: Z80.3 Family history of malignant neoplasm of breast (principal); Z12.39 Encounter for other screening for malignant neoplasm of breast
CPT/HCPCS: 99213

== ENCOUNTER → 2023-07-02 11:01 | Outpatient (BNVA) | payer OTHER, SELFPAY | PROVIDERS: PCP Internal Medicine; Visit Provider Surgery | DX: Z12.39 Encounter for other screening for malignant neoplasm of breast (principal) | CPT/HCPCS: 99212 ==

== ENCOUNTER 2023-08-29 15:42 | Outpatient (AMB) | payer OTHER, SELFPAY ==
[2023-08-29 15:45] VITALS: BP 124/76; PULSE 73; O2SAT 97; BMI 28.4
--- NOTE | 2023-08-29 15:45 | A.OFFPC_ITS ---
Vital Signs 08/29/23 15:45 Height 5 ft 2 in Weight 155 lb 0.8 oz BMI 28.4 BP 124/76 Blood Pressure Location Lt brachial Position Sitting Pulse 73 Pulse Source Pulse Oximeter Pulse Oximetry (%) 97 Oxygen Delivery Method Room Air Intake Visit Reasons: asthma, gerd Publications Editor Required: No Allergies leflunomide Allergy (Unknown, Verified 08/29/23 15:46) abd pain oseltamivir Adverse Reaction (Unknown, Verified 08/29/23 15:46) dizziness, headaches, ringing in the ears ?IVP dye Allergy (Unknown, Uncoded 08/29/23 15:46) headache, nausea unknown arthrits medication Allergy (Unknown, Uncoded 08/29/23 15:46) stomach upset Contrast Allergy PreMed Pack Adverse Reaction (Unknown, Uncoded 08/29/23 15:46) stomach upset Medication List - Last Reconciled 08/29/23 by Lydia Thomas Po, albuterol sulfate 90 mcg/actuation (Ventolin HFA) 2 puffs inhalation Q6H PRN beclomethasone dipropionate 80 mcg/actuation (Qvar RediHaler) 2 inhalations inhalation BID 90 days cholecalciferol (vitamin D3) 50 mcg PO DAILY 90 days folic acid 1 mg PO DAILY hydrocodone-acetaminophen 7.5-325 mg 1 tab PO QID PRN ibuprofen 800 mg PO TID loratadine (Allergy Relief (loratadine)) 10 mg PO DAILY methotrexate sodium 17.5 mg PO QWEEK mometasone 0.1% 1 appl topical DAILY mupirocin 2% 1 appl topical BID omeprazole 20 mg PO DAILY Tobacco use date assessed: 08/29/23 Dental Screening Dental Screen Date: 08/29/23 Did you have a dental visit in the last 12 months?: Yes Did you have a dental problem in the last 6 months where you did not have access to dental care?: No Was dental information given to patient?: Patient has dentist HPI asthma, gerd HPI Details 57-year-old overweight female with a his tory of asthma, rheumatoid arthritis hypercholesterolemia GERD and has a history of sleeve gastrectomy coming in for follow-up. Last seen in October 2022 for physical exam patient's mammogram is up-to-date colonoscopy 2017 patient follows up with Rheumatology for her RA on methotrexate. With the high risk for breast cancer patient follows up with surgeon and last mammogram was April 2023 no suspicious findings MRI in September 10-and she is having MRI yearly of the breast.. Patient was seen for preoperative evaluation for panniculus surgery seen the nurse practitioner preop for panniculectomy. Patient also has a right knee end- stage osteoarthritis seen the [facility] December 2022 has a planned total knee arthroplasty. [facility] Medical History (Updated 08/29/23 @ 16:19 by Lydia Stanley MD) Well woman exam with routine gynecological exam Lumbar degenerative disc disease Vitamin D deficiency Allergic rhinitis Hypothyroid Asthma Cervical cancer screening Rheumatoid arthritis Breast cancer screening, high risk patient Surgical History (Updated 08/29/23 @ 16:14 by Lydia Stanley MD) S/P panniculectomy H/O tubal ligation History of cholecystectomy History of sleeve gastrectomy History of breast biopsy History of gastric surgery (12/2015) History of removal of laparoscopic gastric banding device (10/03/15) Hx of laparoscopic gastric banding (01/2010) Family History Father Family history of prostate cancer, Onset Age: 70 Mother History of breast cancer, Onset Age: 55 Sister History of breast cancer, Onset Age: 47 Maternal Grandmother History of breast cancer, Onset Age: 58 Colon cancer Maternal Aunt History of breast cancer, Onset Age: 37 Maternal Aunt History of breast cancer, Onset Age: 40 Social History Housing: Apartment Alcohol intake: current Patient Tobacco Use Status: Never used Tobacco e-Cigarette/Vaping Use: Never Used Second Hand Smoke Exposure: No Current occupational status: unemployed Cognitive needs: No Hearing needs: No Vision needs: No Female Reproductive History Menstrual Age of Menarche: 8 Questionnaire Thrive Questionnaire Date Thrive assessed: 08/29/23 I am a: Patient What is your living situation today?: I have a steady place to live Within the past 12 months, did the food you bought not last and you didn't have the money to get more?: Never true Within the past 12 months, did you worry whether your food would run out before you got money to buy more?: Never true Do you have trouble paying for medicines?: No Do you have trouble getting transportation to medical appointments?: No Do you have trouble paying your heating and electricity bill?: No Do you have trouble taking care of your child, family member or friend?: No Do you have trouble with day-to-day activities such as bathing, preparing meals, shopping, managing finances, etc.?: No Are you currently unemployed and looking for a job?: No Are you interested in more education?: No Please select the resources that you would like help with: None THRIVE Score: 0 AUDIT C Alcohol Use Questionnaire (AUDIT-C) 1. How often do you have a drink containing alcohol?: Monthly or less 2. How many drinks containing alcohol do you have on a typical day when you are drinking?: 1 or 2 3. How often do you have six or more drinks on one occasion?: Never Total Score: 1 Score Reviewed/Action Taken: No JASMIN-7 AMB Questionnaire JASMIN-7 Date JASMIN - 7 assessed: 08/29/23 Source: Developed by Drs. Jean Pierre Mcdaniel, Mayra Kilgore, Jerrod Ruth and colleagues, with an educational christiano from [employer]. Physical exam (Primary Care) Vital Signs: Last Vital Signs Pulse 73 08/29/23 15:45 BP 124/76 08/29/23 15:45 Pulse Ox 97 08/29/23 15:45 Oxygen Delivery Method Room Air 08/29/23 15:45 BMI result Body Mass Index 28.4 Tobacco/Smoking Status: Tobacco use Status Tobacco use date assessed 08/29/23 08/29/23 15:46 Patient Tobacco Use Status Never used Tobacco 08/29/23 15:46 Tobacco use type 07/03/21 15:21 e-Cigarette/Vaping Use Never Used 08/29/23 15:46 Thrive Assessment: Date of Thrive Assessment Date Thrive assessed 08/29/23 08/29/23 15:46 Const General: alert; No acute distress Eyes Conjunctivae: conjunctivae normal Resp Auscultation: clear to auscultation bilaterally Cardio Rate: regular rate Rhythm: regular rhythm GI Inspection: Yes normal to inspection Extrem General: Yes normal to inspection and No edema Assessment and Plan Assessment & Plan (1) Asthma: Code(s): J45.909 - Unspecified asthma, uncomplicated Plan: on inhalers continune with the controller need refills. (2) History of sleeve gastrectomy: Comment: December 2015 Code(s): Z90.3 - Acquired absence of stomach [part of] Plan: Keep active and well hydrated (3) Rheumatoid arthritis: Code(s): M06.9 - Rheumatoid arthritis, unspecified Plan: Patient follows up with Rheumatology on methotrexate (4) Hypercholesterolemia: Code(s): E78.00 - Pure hypercholesterolemia, unspecified Plan: Avoid fried foods, chicken skin, eggs, butter margarine, pastries and meat. Be it pork or beef they have a lot of cholesterol LDL goal of less than 130 and triglyceride of less than 150 continue to monitor. Blood work requested (5) Family history of breast cancer: Comment: MRI breast July 2022 Code(s): Z80.3 - Family history of malignant neoplasm of breast Plan: Patient has MRI and mammograms up-to-date follows up with the surgeon and reminded MRI to be done this month (6) Abdominal panniculus: Code(s): E65 - Localized adiposity Plan: Status post panniculectomy February 2023 (7) Osteoarthritis of right knee: Comment: september 13, 2023 Dr. Carolyn FORRESTER Code(s): M17.11 - Unilateral primary osteoarthritis, right knee Plan: Patient has a planned arthroplasty. 09/13/2023 (8) Vision changes: Code(s): H53.9 - Unspecified visual disturbance Plan: Referral to ophthalmology Orders: Orders Free T4 (Free Thyroxine) 3 Months M06.9 - Rheumatoid arthritis, unspecified Lipid Panel 3 Months E78.00 - Pure hypercholesterolemia, unspecified, M06.9 - Rheumatoid arthritis, unspecified Vitamin B12 and Folate 3 Months M06.9 - Rheumatoid arthritis, unspecified Vitamin D 25-OH Total 3 Months M06.9 - Rheumatoid arthritis, unspecified Complete Blood Count Auto Diff 3 Months M06.9 - Rheumatoid arthritis, unspecified Comprehensive Met. Panel 3 Months M06.9 - Rheumatoid arthritis, unspecified Thyroid Stimulating Hormone 3 Months M06.9 - Rheumatoid arthritis, unspecified Referrals Ophthalmology Referral H53.9 - Unspecified visual disturbance Medications: New albuterol sulfate 90 mcg/actuation (Ventolin HFA) 2 puffs inhalation Q6H PRN 8.5 grams 0RF shortness of breath or wheezing J45.909 - Unspecified asthma, uncomplicated Refilled beclomethasone dipropionate 80 mcg/actuation (Qvar RediHaler) 2 inhalations inhalation BID 90 days 3 ea 3RF J45.909 - Unspecified asthma, uncomplicated cholecalciferol (vitamin D3) 50 mcg PO DAILY 90 days 90 caps 3RF E55.9 - Vitamin D deficiency, unspecified Discontinued albuterol sulfate 90 mcg/actuation (ProAir HFA) Discontinued Reason: Insurance Denied 2 puffs inhalation QID PRN 8.5 grams 0RF shortness of breath or wheezing J45.909 - Unspecified asthma, uncomplicated Coding Level of Care Code Est Pt Level 4 (78156) Diagnoses Asthma J45.909 History of sleeve gastrectomy Z90.3 Rheumatoid arthritis M06.9 Hypercholesterolemia E78.00 Family history of breast cancer Z80.3 Abdominal panniculus E65 Osteoarthritis of right knee M17.11 Vision changes H53.9
== END 2023-08-29 16:29 | disposition home or self-care (01) ==
LOC: HO.HMGH 15:42
PROVIDERS: PCP Internal Medicine; Visit Provider Internal Medicine
DX: J45.909 Unspecified asthma, uncomplicated (principal); M06.9 Rheumatoid arthritis, unspecified; E66.3 Overweight; Z90.3 Acquired absence of stomach [part of]; E65 Localized adiposity; M17.11 Unilateral primary osteoarthritis, right knee; H53.9 Unspecified visual disturbance
CPT/HCPCS: 99214

== ENCOUNTER 2023-09-05 09:12 | Outpatient (AMB) | payer OTHER, SELFPAY ==
--- NOTE | 2023-09-05 09:15 | MHC.OFFVIS ---
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/Pt will not go to [facility] Advisor Required: No Rug Cleaner: Rug Cleaner Present (Rosalina) Allergies leflunomide Allergy (Unknown, Verified 09/05/23 09:16) abd pain oseltamivir Adverse Reaction (Unknown, Verified 09/05/23 09:16) dizziness, headaches, ringing in the ears ?IVP dye Allergy (Unknown, Uncoded 08/29/23 15:46) headache, nausea unknown arthrits medication Allergy (Unknown, Uncoded 08/29/23 15:46) stomach upset Contrast Allergy PreMed Pack Adverse Reaction (Unknown, Uncoded 08/29/23 15:46) stomach upset Is last menstrual period known: No Post menopausal: Yes HPI HPI Comments History of Present Illness Details She is a postmenopausal woman 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 She is doing well with no concerns. Attempting to eat a healthy diet with calcium and vitamin D. Active walking, having total knee replacement next week. Currently sexually active. Denies any irritation, admits dryness. STI testing offered; she declines. Last pap smear; 2021. Last mammogram; 04/2023. Colonoscopy is UTD. Denies any family history of breast, ovarian or colon cancer. [facility] Medical History Well woman exam with routine gynecological exam Lumbar degenerative disc disease Vitamin D deficiency Allergic rhinitis Hypothyroid Asthma Cervical cancer screening Rheumatoid arthritis Breast cancer screening, high risk patient Surgical History S/P panniculectomy H/O tubal ligation History of cholecystectomy History of sleeve gastrectomy History of breast biopsy History of gastric surgery (12/2015) History of removal of laparoscopic gastric banding device (10/03/15) Hx of laparoscopic gastric banding (01/2010) Family History (Updated 09/05/23 @ 09:22 by KAREN Brannon) Father Family history of prostate cancer, Onset Age: 70 Mother History of breast cancer, Onset Age: 55 Sister History of breast cancer, Onset Age: 47 Maternal Grandmother History of breast cancer, Onset Age: 58 Colon cancer Maternal Aunt History of breast cancer, Onset Age: 37 Maternal Aunt History of breast cancer, Onset Age: 40 Sister Bone cancer Social History Housing: Apartment Alcohol intake: current Patient Tobacco Use Status: Never used Tobacco e-Cigarette/Vaping Use: Never Used Second Hand Smoke Exposure: No Current occupational status: unemployed Cognitive needs: No Hearing needs: No Vision needs: No Female Reproductive History Menstrual Age of Menarche: 8 control method: permanent sterilization Permanent Sterilization: BTL Total pregnancies: 3 Full term: 3 Number of Living Children: 3 Date of last pap smear: 07/18/22 (neg pap and hpv) Date of Mammogram: 05/03/23 (Birad 2) Review of Systems Const All systems reviewed & are unremarkable except as noted in HPI and below Reports as per HPI Eyes Reports no additional complaints ENT Reports no additional complaints Card Reports no additional complaints Resp Reports no additional complaints GI Reports as per HPI and Reports no additional complaints Reports as per HPI Musc Reports no additional complaints Skin/Breast Reports as per HPI Neuro Reports no additional complaints Psych Reports no additional complaints Endo Reports no additional complaints Raphael/Lymph Reports no additional complaints Aller/Immun Reports no additional complaints Physical Exam Vital Signs: Last Vital Signs BP 104/66 09/05/23 09:16 BMI result Body Mass Index 28.7 Const General: cooperative, healthy appearing, no acute distress, well developed and alert Orientation/consciousness: patient oriented x3 HEENT Head: Yes normal to inspection Eyes General: appearance normal, both eyes and all related structures Neck Neck: Yes normal visual inspection Thyroid: Thyroid normal Chest Chest palpation & inspection: normal inspection of the chest and other (no puckering, dimpling, peau de orange, retraction, discharge, masses) Breast/axilla inspection: normal inspection of the breasts Breast/axilla palpation: normal palpation of the breasts Resp Effort & Inspection: normal respiratory effort GI Inspection: Yes normal to inspection and Yes scar Palpation (GI): Soft to palpation Rectal Exam - Female: deferred General: Yes bladder normal to palpation External Female Exam: normal external appearance and normal appearance of the urethra Speculum Exam - Vagina: normal appearance of the vagina, normal palpation, normal vaginal discharge and vagina atrophic Speculum Exam - Cervix: normal appearance of the cervix and normal palpation Bimanual exam- vagina & uterus: normal bimanual exam, normal palpation, uterine size normal, bladder normal to palpation, normal palpation and non-tender Bimanual Exam- Adnexa, other: no masses Skin General skin exam: no rashes or lesions noted Rashes: no rashes Neuro General: patient oriented x3 Cognition (Neuro): normal cognition Extrem General: Yes normal to inspection Psych Attitude: cooperative Thought process: Normal thought process present Assessment & Plan Assessment & Plan (1) Encounter for well woman exam with routine gynecological exam: Code(s): Z01.419 - Encounter for gynecological examination (general) (routine) without abnormal findings Plan Discussed: Current recommendations for pap smears per ASCCP guidelines. Breast awareness, periodic self breast exams and yearly mammogram. Maintain a healthy lifestyle, well balanced diet including Calcium 1,200 mg and Vitamin D 600 IU daily, and routine exercise. Contact the office with any postmenopausal bleeding. Patient verbalizes understanding and agrees to the plan of care. She was given opportunity to ask questions and all questions were answered to the best of my ability. 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 This note is constructed using voice recognition software. While every effort has been made to ensure accuracy, medical transcriptionist errors may have been included. Coding Level of Care Code Est Pt Prev Care 40-64y(65306) Diagnoses Encounter for well woman exam with routine gynecological exam Z01.419
[2023-09-05 09:16] VITALS: BP 104/66; BMI 28.7
== END 2023-09-05 09:57 | disposition home or self-care (01) ==
LOC: HO.HWS 09:12
PROVIDERS: PCP Internal Medicine; Visit Provider Advanced Practice Midwife
DX: Z01.419 Encounter for gynecological examination (general) (routine) without abnormal findings (principal)
CPT/HCPCS: 99396

== ENCOUNTER → 2023-09-05 09:12 | Outpatient (BNVA) | payer OTHER, SELFPAY | PROVIDERS: PCP Internal Medicine; Visit Provider Advanced Practice Midwife | DX: Z01.419 Encounter for gynecological examination (general) (routine) without abnormal findings (principal) | CPT/HCPCS: 99396 ==

== ENCOUNTER 2023-11-26 12:25 | Outpatient (AMB) | payer OTHER, SELFPAY ==
[2023-11-26 12:31] VITALS: BP 136/70; PULSE 80; O2SAT 98; BMI 27.4
--- NOTE | 2023-11-26 12:31 | MHC.PC.OV ---
Vital Signs 11/26/23 12:31 Height 5 ft 2 in Weight 150 lb BMI 27.4 BP 136/70 Blood Pressure Location Lt brachial Position Sitting Pulse 80 Pulse Source Pulse Oximeter Pulse Oximetry (%) 98 Oxygen Delivery Method Room Air Intake Visit Reasons: Annual Exam Allergies leflunomide Allergy (Unknown, Verified 11/26/23 12:32) abd pain oseltamivir Adverse Reaction (Unknown, Verified 11/26/23 12:32) dizziness, headaches, ringing in the ears ?IVP dye Allergy (Unknown, Uncoded 11/26/23 12:32) headache, nausea unknown arthrits medication Allergy (Unknown, Uncoded 11/26/23 12:32) stomach upset Contrast Allergy PreMed Pack Adverse Reaction (Unknown, Uncoded 11/26/23 12:32) stomach upset Medication List - Last Reconciled 11/26/23 by Lydia Stanley MD albuterol sulfate 90 mcg/actuation (Ventolin HFA) 2 puffs inhalation Q6H PRN budesonide 90 mcg/actuation (Pulmicort Flexhaler) 1 inh inhalation BID celecoxib (Celebrex) 200 mg PO DAILY cholecalciferol (vitamin D3) 50 mcg PO DAILY 90 days folic acid 1 mg PO DAILY hydrocodone-acetaminophen 7.5-325 mg 1 tab PO QID PRN loratadine (Allergy Relief (loratadine)) 10 mg PO DAILY methotrexate sodium 17.5 mg PO QWEEK mometasone 0.1% 1 appl topical DAILY mupirocin 2% 1 appl topical BID omeprazole 20 mg PO DAILY Tobacco use date assessed: 08/29/23 Dental Screening Dental Screen Date: 08/29/23 HPI Annual Exam HPI Details 58-year-old overweight female with a history of sleeve gastrectomy rheumatoid arthritis hypercholesterolemia coming in for physical exam. Last seen in August 2023. Mammogram is up-to-date April 2023 colonoscopy July 2016. Review of the notes in August 2023 had right knee arthroplasty under Dr. Gupta. 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 [facility] Medical History Well woman exam with routine gynecological exam Lumbar degenerative disc disease Vitamin D deficiency Allergic rhinitis Hypothyroid Asthma Cervical cancer screening Rheumatoid arthritis Breast cancer screening, high risk patient Surgical History S/P panniculectomy H/O tubal ligation History of cholecystectomy History of sleeve gastrectomy History of breast biopsy History of gastric surgery (12/2015) History of removal of laparoscopic gastric banding device (10/03/15) Hx of laparoscopic gastric banding (01/2010) Family History (Updated 09/05/23 @ 09:22 by KAREN Brannon) Father Family history of prostate cancer, Onset Age: 70 Mother History of breast cancer, Onset Age: 55 Sister History of breast cancer, Onset Age: 47 Maternal Grandmother History of breast cancer, Onset Age: 58 Colon cancer Maternal Aunt History of breast cancer, Onset Age: 37 Maternal Aunt History of breast cancer, Onset Age: 40 Sister Bone cancer Social History (Updated 11/26/23 @ 12:50 by Lydia Stanley MD) Housing: Apartment Alcohol intake: former Comment: last time years ago Patient Tobacco Use Status: Never used Tobacco e-Cigarette/Vaping Use: Never Used Second Hand Smoke Exposure: No Current occupational status: unemployed Cognitive needs: No Hearing needs: No Vision needs: No Female Reproductive History Menstrual Age of Menarche: 8 Questionnaire PHQ-9 Over the last 2 weeks, how often have you been bothered by any of the following problems? 1. Little interest or pleasure in doing things: not at all 2. Feeling down, depressed, or hopeless: not at all 3. Trouble falling or staying asleep, or sleeping too much: not at all 4. Feeling tired or having little energy: not at all 5. Poor appetite or overeating: not at all 6. Feeling bad about yourself - or that you are a failure or have let yourself or your family down: not at all 7. Trouble concentrating on things, such as reading the newspaper or watching television: not at all 8. Moving or speaking so slowly that other people could have noticed. Or the opposite - being so fidgety or restless that you have been moving around a lot more than usual: not at all 9. Thoughts that you would be better off or of hurting yourself in some way: not at all Total score: 0 Depression Screening Interpretation: Negative Depression Screening Done: Yes Source: Developed by Drs. Jean Pierre Mcdaniel, MayraJerrod Wadsworth and colleagues, with an educational christiano from [employer]. Thrive Questionnaire Date Thrive assessed: 08/29/23 AUDIT C Alcohol Use Questionnaire (AUDIT-C) 1. How often do you have a drink containing alcohol?: Monthly or less 2. How many drinks containing alcohol do you have on a typical day when you are drinking?: 1 or 2 3. How often do you have six or more drinks on one occasion?: Never Total Score: 1 Score Reviewed/Action Taken: No JASMIN-7 AMB Questionnaire JASMIN-7 Date JASMIN - 7 assessed: 08/29/23 Source: Developed by Drs. Jean Pierre Mcdaniel, Jerrod Jordan and colleagues, with an educational christiano from [employer]. Review of Systems Const Denies poor appetite and Denies weakness Eyes Denies no additional complaints ENT Reports Normal hearing present, Denies dizziness, Denies nasal congestion, Denies tinnitus and Denies sore throat Card Denies chest pain, Denies syncope, Denies rapid heart rate and Denies dyspnea Resp Denies cough and Denies dyspnea GI Denies change in stool character, Reports constipation, Denies diarrhea, Denies nausea and Denies vomiting Denies urinary frequency, Denies difficulty voiding and Denies dysuria Neuro Reports Normal hearing present, Denies confusion, Denies dizziness, Denies syncope and Denies weakness Psych Denies confusion Physical exam (Primary Care) Vital Signs: Last Vital Signs Pulse 80 11/26/23 12:31 BP 136/70 11/26/23 12:31 Pulse Ox 98 11/26/23 12:31 Oxygen Delivery Method Room Air 11/26/23 12:31 BMI result Body Mass Index 27.4 Tobacco/Smoking Status: Tobacco use Status Tobacco use date assessed 08/29/23 11/26/23 12:40 Patient Tobacco Use Status Never used Tobacco 11/26/23 12:40 Tobacco use type 07/03/21 15:21 e-Cigarette/Vaping Use Never Used 11/26/23 12:40 PHQ-9: PHQ-9 Score PHQ-9: Total score 0 11/26/23 12:40 Depression Screening Interpretation: Negative Thrive Assessment: Date of Thrive Assessment Date Thrive assessed 08/29/23 11/26/23 12:40 Const General: No confusion Orientation/consciousness: No confusion Neuro General: No confusion Cranial nerves: Yes Normal hearing present Assessment and Plan Assessment & Plan (1) Annual physical exam: Code(s): Z00.00 - Encounter for general adult medical examination without abnormal findings (2) Osteoarthritis of right knee: Comment: september 13, 2023 Dr. Carolyn FORRESTER Code(s): M17.11 - Unilateral primary osteoarthritis, right knee Plan: s/p total knee arthroplasty right Dr. Gupta August 2023 (3) GERD (gastroesophageal reflux disease): Code(s): K21.9 - Gastro-esophageal reflux disease without esophagitis Plan: Avoid the foods that causes that usually spicy foods, tomato products, juices, coffee, soda and foods that your sensitive to. After eating do not lie down, allow 3-4 hours before in lie down. And keep the head of bed above 30 degrees to avoid the acid from going up. (4) Hypercholesterolemia: Code(s): E78.00 - Pure hypercholesterolemia, unspecified Plan: Avoid fried foods, chicken skin, eggs, butter margarine, pastries and meat. Be it pork or beef they have a lot of cholesterol LDL goal of less than 130 and triglyceride of less than 150 (5) Rheumatoid arthritis: Code(s): M06.9 - Rheumatoid arthritis, unspecified Plan: Patient follows up with Rheumatology (6) History of sleeve gastrectomy: Comment: December 2015 Code(s): Z90.3 - Acquired absence of stomach [part of] Plan: Keep active, eat healthy (7) Asthma: Code(s): J45.909 - Unspecified asthma, uncomplicated Plan: Continue with the inhaler and on Pulmicort reminded about rinsing mouth after using Orders: Orders UA CC w/rflx Micro + Cult Today M06.9 - Rheumatoid arthritis, unspecified, R30.0 - Dysuria Erythrocyte Sedimentation Rate Today M06.9 - Rheumatoid arthritis, unspecified C Reactive Protein Today M06.9 - Rheumatoid arthritis, unspecified Referrals Ophthalmology Referral H53.9 - Unspecified visual disturbance Medications: Refilled loratadine (Allergy Relief (loratadine)) 10 mg PO DAILY 90 tabs 3RF J30.9 - Allergic rhinitis, unspecified cholecalciferol (vitamin D3) 50 mcg PO DAILY 90 days 90 caps 3RF E55.9 - Vitamin D deficiency, unspecified Coding Level of Care Code Est Pt Prev Care 40-64y(63872) Diagnoses Annual physical exam Z00.00 Osteoarthritis of right knee M17.11 GERD (gastroesophageal reflux disease) K21.9 Hypercholesterolemia E78.00 Rheumatoid arthritis M06.9 History of sleeve gastrectomy Z90.3 Asthma J45.909
== END 2023-11-26 13:01 | disposition home or self-care (01) ==
PROVIDERS: PCP Internal Medicine; Visit Provider Internal Medicine
DX: Z00.00 Encounter for general adult medical examination without abnormal findings (principal); M06.9 Rheumatoid arthritis, unspecified; M17.11 Unilateral primary osteoarthritis, right knee; K21.9 Gastro-esophageal reflux disease without esophagitis; E78.00 Pure hypercholesterolemia, unspecified; Z90.3 Acquired absence of stomach [part of]; J45.909 Unspecified asthma, uncomplicated
CPT/HCPCS: 99396

== ENCOUNTER 2024-01-02 09:32 | Outpatient (AMB) | payer OTHER, SELFPAY ==
--- NOTE | 2024-01-02 09:35 | MHC.OFFVIS ---
Vital Signs 01/02/24 09:41 Height 5 ft 2 in Weight 146 lb BMI 26.7 BP 130/81 Blood Pressure Location Lt brachial Position Sitting Pulse 73 Intake Visit Reasons: 6 months breast exam Intake Note: Patient is seen in office for 6 month follow up visit, breast exam. 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 Present Accompanied by: Self / Same As Patient Allergies leflunomide Allergy (Unknown, Verified 01/02/24 09:44) abd pain oseltamivir Adverse Reaction (Unknown, Verified 01/02/24 09:44) dizziness, headaches, ringing in the ears ?IVP dye Allergy (Unknown, Uncoded 01/02/24 09:44) headache, nausea unknown arthrits medication Allergy (Unknown, Uncoded 01/02/24 09:44) stomach upset Contrast Allergy PreMed Pack Adverse Reaction (Unknown, Uncoded 01/02/24 09:44) stomach upset Medication List - Last Reconciled 01/02/24 by Bud Sabillon MD albuterol sulfate 90 mcg/actuation (Ventolin HFA) 2 puffs inhalation Q6H PRN budesonide 90 mcg/actuation (Pulmicort Flexhaler) 1 inh inhalation BID celecoxib (Celebrex) 200 mg PO DAILY cholecalciferol (vitamin D3) 50 mcg PO DAILY 90 days folic acid 1 mg PO DAILY hydrocodone-acetaminophen 7.5-325 mg 1 tab PO QID PRN loratadine (Allergy Relief (loratadine)) 10 mg PO DAILY methotrexate sodium 17.5 mg PO QWEEK mometasone 0.1% 1 appl topical DAILY mupirocin 2% 1 appl topical BID omeprazole 20 mg PO DAILY HPI Comments Details: 58-year-old female patient returning for a routine breast examination. She has a strong family history for breast cancer is considered a high risk for breast cancer due to her mother, sisters, maternal grandmother, and maternal aunt having been diagnosed with breast cancer. Her maternal aunt from breast cancer. She denies any new members of her family with cancer. Her initial Alysha score lifetime risk of breast cancer was determined to be 30.9 % placing her at high risk for breast cancer. She was followed by Dr. Bundy and placed on the high risk protocol including yearly mammogram and MRI evaluations. She previously underwent a right breast needle core biopsy which was benign. She reports her menarche at the age of 10, she is , her 1st child was born when she was 17, she did not breast feed her children. She is postmenopausal and her last menstrual period was at the age of 48. She underwent genetic testing in 2019 which confirmed remaining lifetime risk of breast cancer of approximately 31%. No known genetic mutations of clinical significance were identified however 1 significant of unknown significance was identified. Her last mammogram dated 05/03/2023 revealed no mammographic specific evidence of malignancy (BI-RADS 2). Her last breast MRI performed on 08/23/2022 revealed no MR specific evidence of malignancy (BI-RADS 1 bilaterally). She has due for a breast MRI this year however wishes to postpone this due to her recent right knee surgery which would make it difficult for positioning in the MRI machine. [facility] Medical History Well woman exam with routine gynecological exam Lumbar degenerative disc disease Vitamin D deficiency Allergic rhinitis Hypothyroid Asthma Cervical cancer screening Rheumatoid arthritis Breast cancer screening, high risk patient Surgical History S/P panniculectomy H/O tubal ligation History of cholecystectomy History of sleeve gastrectomy History of breast biopsy History of gastric surgery (12/2015) History of removal of laparoscopic gastric banding device (10/03/15) Hx of laparoscopic gastric banding (01/2010) Family History Father Family history of prostate cancer, Onset Age: 70 Mother History of breast cancer, Onset Age: 55 Sister History of breast cancer, Onset Age: 47 Maternal Grandmother History of breast cancer, Onset Age: 58 Colon cancer Maternal Aunt History of breast cancer, Onset Age: 37 Maternal Aunt History of breast cancer, Onset Age: 40 Sister Bone cancer Social History Housing: Apartment Alcohol intake: former Comment: last time years ago Patient Tobacco Use Status: Never used Tobacco e-Cigarette/Vaping Use: Never Used Second Hand Smoke Exposure: No Current occupational status: unemployed Cognitive needs: No Hearing needs: No Vision needs: No Female Reproductive History Menstrual Age of Menarche: 8 Review of Systems Const Denies chills, Denies fever(s), Denies headache(s) and Denies poor appetite ENT Denies dizziness and Denies headache(s) Card Denies chest pain, Denies rapid heart rate, Denies palpitations and Denies slow heart rate Resp Denies chest congestion, Denies cough, Denies pain on inspiration and Denies wheezing GI Denies abdominal pain, Denies bloating, Denies change in stool character, Denies constipation, Denies diarrhea, Denies nausea, Denies vomiting and Denies hematemesis Denies nipple discharge Musc Details: Rheumatoid arthritis Skin/Breast Denies breast swelling, Denies breast skin changes, Denies breast pain, Denies breast mass, Denies change in breast shape, Denies change in pigmentation, Denies nipple discharge, Denies erythema and Denies rash Neuro Denies dizziness and Denies headache(s) Psych Denies anxiety and Denies depression Endo Denies palpitations Raphael/Lymph Denies easy bleeding, Denies easy bruising and Denies lymphadenopathy Aller/Immun Denies wheezing Physical Exam Const General: cooperative, comfortable and well developed Nutritional Appearance: well nourished Orientation/consciousness: patient oriented x3 Eyes Sclerae: sclerae normal EOM: EOMs intact bilaterally Neck Neck: Yes normal visual inspection Lymphatic: no lymphadenopathy noted Chest Other: Left breast: No skin change, no nipple retraction, no nipple discharge, no palpable mass, no enlarged lymph nodes. Right breast: No skin change, no nipple retraction, no nipple discharge, no palpable mass, no enlarged lymph nodes Resp Effort & Inspection: normal respiratory effort, no cough, no respiratory distress and no stridor Cardio Jugular venous distension: no JVD GI Inspection: Yes normal to inspection Palpation (GI): Soft to palpation, nontender, no guarding and not rigid Skin General skin exam: dry skin Rashes: no rashes Neuro General: patient oriented x3 and no focal motor deficits Extrem General: Yes full ROM and Yes no clubbing, cyanosis or edema Psych Appearance: grossly normal Assessment & Plan Assessment & Plan (1) Breast cancer screening, high risk patient: Comment: Alysha model 34% lifetime risk Code(s): Z12.39 - Encounter for other screening for malignant neoplasm of breast Category: Medical (2) Family history of breast cancer: Comment: MRI breast July 2022 Code(s): Z80.3 - Family history of malignant neoplasm of breast Category: Medical Plan Patient returns for follow-up breast examination due to her high risk for breast cancer. She continues to do well and shows no evidence of breast disease at this time. Her most recent mammogram of 05/03/2023 revealed no suspicious findings (BI-RADS 2). MRI dated 09/13/2022 revealed no MR specific evidence of malignancy (BI-RADS 1 bilaterally). She is due for follow-up breast MRI in August 2023 however will postpone this due to her recent knee surgery which will make positioning difficult. She should return in 6 months for routine breast examination. She is welcome to call sooner for any new concerns. Coding Level of Care Code Est Pt Level 3 (49143) Diagnoses Breast cancer screening, high risk patient Z12.39 Family history of breast cancer Z80.3
[2024-01-02 09:41] VITALS: BP 130/81; PULSE 73; BMI 26.7
== END 2024-01-02 09:57 | disposition home or self-care (01) ==
PROVIDERS: PCP Internal Medicine; Visit Provider Surgery
DX: Z80.3 Family history of malignant neoplasm of breast (principal); Z12.39 Encounter for other screening for malignant neoplasm of breast
CPT/HCPCS: 99213

== ENCOUNTER → 2024-01-02 09:32 | Outpatient (BNVA) | payer OTHER, SELFPAY | PROVIDERS: PCP Internal Medicine; Visit Provider Surgery | DX: Z12.39 Encounter for other screening for malignant neoplasm of breast (principal); Z80.3 Family history of malignant neoplasm of breast | CPT/HCPCS: 99212 ==

== ENCOUNTER 2024-01-03 13:22 | Outpatient (AMB) | payer OTHER, SELFPAY ==
--- NOTE | 2024-01-03 13:23 | A.OFFPC_ITS ---
Vital Signs 01/03/24 13:27 Height 5 ft 2 in Weight 147 lb BMI 26.9 BP 122/70 Blood Pressure Location Lt brachial Position Sitting Pulse 80 Pulse Source Pulse Oximeter Pulse Oximetry (%) 97 Oxygen Delivery Method Room Air Intake Visit Reasons: Rash/Allergic Reaction Intake Note: Pt c/o of rash and itchiness over body for a few days with no relief. Health Care Coordinator Required: No Allergies leflunomide Allergy (Unknown, Verified 01/03/24 13:23) abd pain oseltamivir Adverse Reaction (Unknown, Verified 01/03/24 13:23) dizziness, headaches, ringing in the ears ?IVP dye Allergy (Unknown, Uncoded 01/03/24 13:23) headache, nausea unknown arthrits medication Allergy (Unknown, Uncoded 01/03/24 13:23) stomach upset Contrast Allergy PreMed Pack Adverse Reaction (Unknown, Uncoded 01/03/24 13:23) stomach upset Tobacco use date assessed: 01/03/24 Dental Screening Dental Screen Date: 08/29/23 HPI Rash/Allergic Reaction HPI Details 76-year-old male with GERD hypercholeste rolemia impaired glucose tolerance hypertension last seen in 10/09/2023. Patient is due for colonoscopy noted rash on the bilateral arm 4 days pruritic for 1 week [facility] Medical History Well woman exam with routine gynecological exam Lumbar degenerative disc disease Vitamin D deficiency Allergic rhinitis Hypothyroid Asthma Cervical cancer screening Rheumatoid arthritis Breast cancer screening, high risk patient Surgical History S/P panniculectomy H/O tubal ligation History of cholecystectomy History of sleeve gastrectomy History of breast biopsy History of gastric surgery (12/2015) History of removal of laparoscopic gastric banding device (10/03/15) Hx of laparoscopic gastric banding (01/2010) Family History Father Family history of prostate cancer, Onset Age: 70 Mother History of breast cancer, Onset Age: 55 Sister History of breast cancer, Onset Age: 47 Maternal Grandmother History of breast cancer, Onset Age: 58 Colon cancer Maternal Aunt History of breast cancer, Onset Age: 37 Maternal Aunt History of breast cancer, Onset Age: 40 Sister Bone cancer Social History Housing: Apartment Alcohol intake: former Comment: last time years ago Patient Tobacco Use Status: Never used Tobacco e-Cigarette/Vaping Use: Never Used Second Hand Smoke Exposure: No Current occupational status: unemployed Cognitive needs: No Hearing needs: No Vision needs: No Female Reproductive History Menstrual Age of Menarche: 8 Questionnaire PHQ-9 Over the last 2 weeks, how often have you been bothered by any of the following problems? 1. Little interest or pleasure in doing things: not at all 2. Feeling down, depressed, or hopeless: not at all 3. Trouble falling or staying asleep, or sleeping too much: not at all 4. Feeling tired or having little energy: not at all 5. Poor appetite or overeating: not at all 6. Feeling bad about yourself - or that you are a failure or have let yourself or your family down: not at all 7. Trouble concentrating on things, such as reading the newspaper or watching television: not at all 8. Moving or speaking so slowly that other people could have noticed. Or the opposite - being so fidgety or restless that you have been moving around a lot more than usual: not at all 9. Thoughts that you would be better off or of hurting yourself in some way: not at all Total score: 0 Depression Screening Interpretation: Negative Depression Screening Done: Yes Source: Developed by Drs. Jean Pierre Mcdaniel, Mayra Kilgore, Jerrod Ruth and colleagues, with an educational christiano from [employer]. Thrive Questionnaire Date Thrive assessed: 08/29/23 I am a: Patient What is your living situation today?: I have a steady place to live Within the past 12 months, did the food you bought not last and you didn't have the money to get more?: Never true Within the past 12 months, did you worry whether your food would run out before you got money to buy more?: Never true Do you have trouble paying for medicines?: No Do you have trouble getting transportation to medical appointments?: No Do you have trouble paying your heating and electricity bill?: No Do you have trouble taking care of your child, family member or friend?: No Do you have trouble with day-to-day activities such as bathing, preparing meals, shopping, managing finances, etc.?: No Are you currently unemployed and looking for a job?: No Are you interested in more education?: No Please select the resources that you would like help with: None Currently or been in a relationship where the following occur: no concerns reported THRIVE Score: 0 AUDIT C Alcohol Use Questionnaire (AUDIT-C) 1. How often do you have a drink containing alcohol?: Monthly or less 2. How many drinks containing alcohol do you have on a typical day when you are drinking?: 1 or 2 3. How often do you have six or more drinks on one occasion?: Never Total Score: 1 Score Reviewed/Action Taken: No JASMIN-7 AMB Questionnaire JASMIN-7 Date JASMIN - 7 assessed: 08/29/23 Source: Developed by Drs. Jean Pierre Mcdaniel, Mayra Kilgore, Jerrod Ruth and colleagues, with an educational christiano from [employer]. Physical exam (Primary Care) Vital Signs: Last Vital Signs Pulse 80 01/03/24 13:27 BP 122/70 01/03/24 13:27 Pulse Ox 97 01/03/24 13:27 Oxygen Delivery Method Room Air 01/03/24 13:27 BMI result Body Mass Index 26.9 Tobacco/Smoking Status: Tobacco use Status Tobacco use date assessed 01/03/24 01/03/24 13:24 Patient Tobacco Use Status Never used Tobacco 01/03/24 13:24 Tobacco use type 07/03/21 15:21 e-Cigarette/Vaping Use Never Used 01/03/24 13:24 PHQ-9: PHQ-9 Score PHQ-9: Total score 0 01/03/24 13:33 Depression Screening Interpretation: Negative Thrive Assessment: Date of Thrive Assessment Date Thrive assessed 08/29/23 01/03/24 13:24 Currently or been in a relationship where the following occur: no concerns reported Const Other: urticarial rash arm and ankel and shoulder area Assessment and Plan Assessment & Plan (1) Urticaria: Code(s): L50.9 - Urticaria, unspecified Plan: declined steroid oral and so will give cream Medications: New fexofenadine (Krista Allergy) 180 mg PO DAILY 30 tabs 0RF L50.9 - Urticaria, unspecified triamcinolone acetonide 0.5% 1 appl topical BID 45 grams 0RF L50.9 - Urticaria, unspecified Discontinued mometasone 0.1% Discontinued Reason: Doctor's Order 1 appl topical DAILY 45 grams 0RF L30.9 - Dermatitis, unspecified loratadine (Allergy Relief (loratadine)) Discontinued Reason: Ancillary Entered New Order 10 mg PO DAILY 90 tabs 3RF J30.9 - Allergic rhinitis, unspecified Coding Level of Care Code Est Pt Level 3 (64048) Diagnoses Urticaria L50.9
[2024-01-03 13:27] VITALS: BP 122/70; PULSE 80; O2SAT 97; BMI 26.9
== END 2024-01-03 14:02 | disposition home or self-care (01) ==
PROVIDERS: PCP Internal Medicine; Visit Provider Internal Medicine
DX: L50.9 Urticaria, unspecified (principal)
CPT/HCPCS: 99213

== ENCOUNTER 2024-04-15 07:59 | Outpatient (REF) | payer OTHER, SELFPAY ==
[2024-04-15 09:58] LABS: MANUAL DIFF FLAG NO
[2024-04-15 10:02] LABS: Appearance Urine Clear; Color Urine Yellow; Glucose Urine UA Negative (Negative); Leukocyte Esterase Urine Negative (Negative); Nitrite Urine Negative (Negative); PH 6.5 (5.0-9.0); Urine Blood Negative (Negative); Urine Ketones Negative (Negative); Urine Protein Negative (Neg-Trace)
[2024-04-15 10:04] LABS: Basophils Absolute Auto 0.1 X10*3/uL (0.0-0.2); Basophils Percent Auto 1.1 % (0-2); Eosinophils Absolute Auto 0.1 X10*3/uL (0.0-0.4); Eosinophils Percent Auto 1.8 % (0-4); Hematocrit 40.4 % (37.0-47.0); Hemoglobin 12.9 g/dl (12.0-16.0); Imm Gran Abs Auto 0.01 X10*3/uL (0.00-0.03); Imm Gran Pct Auto 0.2 % (0.0-0.4); Lymphocytes Absolute Auto 2.1 X10*3/uL (1.2-4.9); Lymphocytes Percent Auto 31.8 % (20-40); Mean Corpuscular HGB Conc 31.9 g/dl (31.0-35.0); Mean Corpuscular Hemoglobin 28.4 pg (27.0-33.0); Mean Corpuscular Volume 88.8 fL (80.0-98.0); Monocytes Absolute Auto 0.4 X10*3/uL (0.1-1.2); Monocytes Percent Auto 6.3 % (2-11); Neutrophils Absolute Auto 3.8 x10*3/uL (2.0-8.3); Neutrophils Percent Auto 58.8 % (45-73); Platelet Count 320 X10*3/uL (160-400); Red Blood Count 4.55 X10*6/uL (4.20-5.50); Red Cell Distribution Width 13.4 % (11.0-16.0); White Blood Count 6.5 X10*3/uL (4.8-10.8)
[2024-04-15 10:24] LABS: Alanine Aminotransferase 20 U/L (0-31); Albumin Level 4.3 g/dL (3.5-5.0); Alkaline Phosphatase 73 U/L (39-117); Anion Gap 11 (12-20); Aspartate Amino Transferase 24 U/L (5-31); Bilirubin Total 0.5 mg/dL (0.0-1.0); Blood Urea Nitrogen 16 mg/dL (9-16); C Reactive Protein 0.12 mg/dL (< or = 0.50); Carbon Dioxide 29 mmol/L (22-29); Chloride 106 mmol/L (96-108); Cholesterol 226 mg/dL (<200); Estimated Glomerular Filt Rate > 60; Glucose Random 87 mg/dL (60-115); HDL Cholesterol 87 mg/dL (>40); LDL Cholesterol Calculated 120 mg/dL (<100); Potassium 3.9 mmol/L (3.3-5.1); Sodium 142 mmol/L (135-145); Total Protein 7.7 g/dL (6.5-8.0); Triglycerides 95 mg/dL (<150)
[2024-04-15 10:41] LABS: Free T4 (Free Thyroxine) 1.03 ng/dL (0.71-1.85); Thyroid Stimulating Hormone 0.85 uIU/mL (0.32-4.0); Vitamin D 25-OH Total 49.5 ng/mL (>30)
[2024-04-15 10:45] LABS: Erythrocyte Sedimentation Rate 12 MM/HR (0-20)
[2024-04-15 10:51] LABS: Folate 12.2 ng/mL (> or = 4.0); Vitamin B12 1306 pg/mL (200-900)
== END 2024-04-15 08:00 | disposition home or self-care (01) ==
LOC: HO.10HDL 07:59
PROVIDERS: Visit Provider Internal Medicine
DX: M06.9 Rheumatoid arthritis, unspecified (principal); E78.00 Pure hypercholesterolemia, unspecified; R30.0 Dysuria
CPT/HCPCS: 36415; 80053; 80061; 81003; 82306; 82607; 82746; 84439; 84443; 85025; 85652; 86140

== ENCOUNTER 2024-04-16 10:51 | Outpatient (AMB) | payer OTHER, SELFPAY ==
--- NOTE | 2024-04-16 10:52 | A.OFFPC_ITS ---
Vital Signs 04/16/24 10:54 Height 5 ft 2 in Weight 143 lb BMI 26.2 BP 130/80 Blood Pressure Location Lt brachial Position Sitting Intake Visit Reasons: Asthma, GERD Intake Note: Patient here for a follow up Asthma, GERD Emergency Room Specialist Required: No Accompanied by: Self / Same As Patient Allergies leflunomide Allergy (Unknown, Verified 04/16/24 10:57) abd pain oseltamivir Adverse Reaction (Unknown, Verified 04/16/24 10:57) dizziness, headaches, ringing in the ears ?IVP dye Allergy (Unknown, Uncoded 01/03/24 13:23) headache, nausea unknown arthrits medication Allergy (Unknown, Uncoded 01/03/24 13:23) stomach upset Contrast Allergy PreMed Pack Adverse Reaction (Unknown, Uncoded 01/03/24 13:23) stomach upset Tobacco use date assessed: 01/03/24 Dental Screening Dental Screen Date: 04/16/24 Did you have a dental visit in the last 12 months?: Yes Did you have a dental problem in the last 6 months where you did not have access to dental care?: No Was dental information given to patient?: Patient has dentist HPI Asthma, GERD HPI Details 58-year-old female with a history of ast hma, history of sleeve gastrectomy rheumatoid arthritis hypercholesterolemia GERD coming in for follow- up. Last seen in December had urticaria. Patient's mammogram is due, colonoscopy is up-to-date. Review of the notes follows up with arthritis treatment center for trochanteric bursitis lumbar spondylosis osteoarthritis and rheumatoid arthritis sed rate is normal continuing with methotrexate problems with right knee. PAtient was rx tizanidine asking for refill. concern on loosing weight PFSH Medical History (Updated 04/16/24 @ 11:20 by Lydia Stanley MD) Well woman exam with routine gynecological exam Lumbar degenerative disc disease Vitamin D deficiency Allergic rhinitis Hypothyroid Asthma Cervical cancer screening Rheumatoid arthritis Breast cancer screening, high risk patient Surgical History (Updated 04/16/24 @ 11:00 by KAREN Vicente) History of total right knee replacement S/P panniculectomy H/O tubal ligation History of cholecystectomy History of sleeve gastrectomy History of breast biopsy History of gastric surgery (12/2015) History of removal of laparoscopic gastric banding device (10/03/15) Hx of laparoscopic gastric banding (01/2010) Family History Father Family history of prostate cancer, Onset Age: 70 Mother History of breast cancer, Onset Age: 55 Sister History of breast cancer, Onset Age: 47 Maternal Grandmother History of breast cancer, Onset Age: 58 Colon cancer Maternal Aunt History of breast cancer, Onset Age: 37 Maternal Aunt History of breast cancer, Onset Age: 40 Sister Bone cancer Social History Housing: Apartment Alcohol intake: former Comment: last time years ago Patient Tobacco Use Status: Never used Tobacco e-Cigarette/Vaping Use: Never Used Second Hand Smoke Exposure: No service: No Current occupational status: unemployed Cognitive needs: No Hearing needs: No Vision needs: No Female Reproductive History Menstrual Age of Menarche: 8 Questionnaire PHQ-9 Over the last 2 weeks, how often have you been bothered by any of the following problems? 1. Little interest or pleasure in doing things: not at all 2. Feeling down, depressed, or hopeless: not at all 3. Trouble falling or staying asleep, or sleeping too much: several days 4. Feeling tired or having little energy: not at all 5. Poor appetite or overeating: not at all 6. Feeling bad about yourself - or that you are a failure or have let yourself or your family down: not at all 7. Trouble concentrating on things, such as reading the newspaper or watching television: not at all 8. Moving or speaking so slowly that other people could have noticed. Or the opposite - being so fidgety or restless that you have been moving around a lot more than usual: not at all 9. Thoughts that you would be better off or of hurting yourself in some way: not at all Total score: 1 Source: Developed by Drs. Jean Pierre Mcdaniel, Mayra Kilgore, Jerrod Ruth and colleagues, with an educational christiano from [employer] book. Thrive Questionnaire Date Thrive assessed: 04/16/24 I am a: Patient What is your living situation today?: I have a steady place to live Within the past 12 months, did the food you bought not last and you didn't have the money to get more?: Never true Within the past 12 months, did you worry whether your food would run out before you got money to buy more?: Never true Do you have trouble paying for medicines?: No Do you have trouble getting transportation to medical appointments?: No Do you have trouble paying your heating and electricity bill?: No Do you have trouble taking care of your child, family member or friend?: No Do you have trouble with day-to-day activities such as bathing, preparing meals, shopping, managing finances, etc.?: No Are you currently unemployed and looking for a job?: No Are you interested in more education?: No Please select the resources that you would like help with: None Currently or been in a relationship where the following occur: No concerns r eported THRIVE Score: 0 AUDIT C Alcohol Use Questionnaire (AUDIT-C) 1. How often do you have a drink containing alcohol?: Monthly or less 2. How many drinks containing alcohol do you have on a typical day when you are drinking?: 1 or 2 3. How often do you have six or more drinks on one occasion?: Never Total Score: 1 JASMIN-7 AMB Questionnaire JASMIN-7 Date JASMIN - 7 assessed: 04/16/24 Feeling nervous, anxious, or on edge: 0 = Not at all Not being able to stop or control worryin = Not at all Worrying too much about different things: 0 = Not at all Trouble relaxin = Not at all Being so restless that it is hard to sit still: 0 = Not at all Becoming easily annoyed or irritable: 0 = Not at all Feeling afraid as if something awful might happen: 0 = Not at all Total JASMIN-7 score (0-4 normal; 5-9 mild; 10-14 moderate; 15-21 severe): 0 Source: Developed by Drs. Jean Pierre Mcdaniel, Mayra Kilgore, Jerrod Ruth and colleagues, with an educational christiano from [employer] book. Physical exam (Primary Care) Vital Signs: Last Vital Signs BP 130/80 04/16/24 10:54 BMI result Body Mass Index 26.2 Tobacco/Smoking Status: Tobacco use Status Tobacco use date assessed 01/03/24 04/16/24 11:03 Patient Tobacco Use Status Never used Tobacco 04/16/24 11:03 Tobacco use type 07/03/21 15:21 e-Cigarette/Vaping Use Never Used 04/16/24 11:03 PHQ-9: PHQ-9 Score PHQ-9: Total score 1 04/16/24 11:03 Thrive Assessment: Date of Thrive Assessment Date Thrive assessed 04/16/24 04/16/24 11:03 Currently or been in a relationship where the following occur: No concerns reported Const General: alert; No acute distress Eyes Conjunctivae: conjunctivae normal Resp Auscultation: clear to auscultation bilaterally Cardio Rate: regular rate Rhythm: regular rhythm GI Inspection: Yes normal to inspection Extrem General: Yes normal to inspection and No edema Assessment and Plan Assessment & Plan (1) History of sleeve gastrectomy: Comment: December 2015 Code(s): Z90.3 - Acquired absence of stomach [part of] Plan: Continue to keep active and well hydrated (2) Asthma: Code(s): J45.909 - Unspecified asthma, uncomplicated Plan: Patient has albuterol and has been placed on Pulmicort inhaler (3) Rheumatoid arthritis: Code(s): M06.9 - Rheumatoid arthritis, unspecified Plan: Continue to follow-up with arthritis treatment Center on methotrexate (4) Hypercholesterolemia: Code(s): E78.00 - Pure hypercholesterolemia, unspecified Plan: Avoid fried foods, chicken skin, eggs, butter margarine, pastries and meat. Be it pork or beef they have a lot of cholesterol LDL goal of less than 130 and triglyceride of less than 150 blood work Autumn is normal (5) GERD (gastroesophageal reflux disease): Code(s): K21.9 - Gastro-esophageal reflux disease without esophagitis Plan: Avoid the foods that causes that usually spicy foods, tomato products, juices, coffee, soda and foods that your sensitive to. After eating do not lie down, allow 3-4 hours before in lie down. And keep the head of bed above 30 degrees to avoid the acid from going up. (6) Osteoarthritis of right knee: Comment: september 13, 2023 Dr. Carolyn FORRESTER Code(s): M17.11 - Unilateral primary osteoarthritis, right knee Plan: Continue to keep active. seen ortho and was advised arthroscopy (7) Breast cancer screening by mammogram: Code(s): Z12.31 - Encounter for screening mammogram for malignant neoplasm of breast Plan: Reminded about mammogram (8) Knee pain, right: Code(s): M25.561 - Pain in right knee Medications: New tizanidine 4 mg PO .QD 90 tabs 1RF M25.561 - Pain in right knee Coding Level of Care Code Est Pt Level 4 (95048) Diagnoses History of sleeve gastrectomy Z90.3 Asthma J45.909 Rheumatoid arthritis M06.9 Hypercholesterolemia E78.00 GERD (gastroesophageal reflux disease) K21.9 Osteoarthritis of right knee M17.11 Breast cancer screening by mammogram Z12.31 Knee pain, right M25.561
[2024-04-16 10:54] VITALS: BP 130/80; BMI 26.2
== END 2024-04-16 11:37 | disposition home or self-care (01) ==
PROVIDERS: PCP Internal Medicine; Visit Provider Internal Medicine
DX: Z90.3 Acquired absence of stomach [part of] (principal); J45.909 Unspecified asthma, uncomplicated; M06.9 Rheumatoid arthritis, unspecified; E78.00 Pure hypercholesterolemia, unspecified; K21.9 Gastro-esophageal reflux disease without esophagitis; M17.11 Unilateral primary osteoarthritis, right knee; Z12.31 Encounter for screening mammogram for malignant neoplasm of breast; M25.561 Pain in right knee

== ENCOUNTER → 2024-04-16 10:51 | Outpatient (BNVA) | payer OTHER, SELFPAY | PROVIDERS: PCP Internal Medicine; Visit Provider Internal Medicine | DX: J45.909 Unspecified asthma, uncomplicated (principal); M06.9 Rheumatoid arthritis, unspecified; E78.00 Pure hypercholesterolemia, unspecified; K21.9 Gastro-esophageal reflux disease without esophagitis; M17.11 Unilateral primary osteoarthritis, right knee; Z90.3 Acquired absence of stomach [part of] | CPT/HCPCS: 99212 ==

== ENCOUNTER 2024-05-08 10:45 | Outpatient (REF) | payer OTHER, SELFPAY ==
--- NOTE | ~2024-05-08 | MM_ITS ---
EXAMINATION: MM SCREENING DIGITAL BREAST TOMOSYNTHESIS, BILATERAL CLINICAL INFORMATION: Screening. Asymptomatic. COMPARISON: Mammography: Comparison is made with available priors TECHNIQUE: Digital breast mammography with tomosynthesis is performed in both the craniocaudal and mediolateral oblique views along with computer-aided detection (CAD). FINDINGS: There are scattered areas of fibroglandular density (ACR BI-RADS breast composition Category b). There are no significant masses, abnormal calcifications, or other abnormalities. MM/MM tomosynthesis screening BI IMPRESSION: No mammographic evidence of malignancy. ASSESSMENT: BI-RADS BI-RADS 1 - Negative RECOMMENDATION: Routine annual mammography screening. 1 year F/U This examination should not preclude the clinical evaluation of a suspicious palpable abnormality. This patient's information was entered into a reminder system with a target due date for their next mammogram. Electronically signed by: Zahira Bob DO 05/19/2024 02:46 PM EDT
== END 2024-05-08 10:46 | disposition home or self-care (01) ==
LOC: HO.MAMMO 10:45
PROVIDERS: PCP Internal Medicine; Visit Provider Internal Medicine
DX: Z12.31 Encounter for screening mammogram for malignant neoplasm of breast (principal)
CPT/HCPCS: 77063; 77067

== ENCOUNTER → 2024-05-08 10:45 | Outpatient (BNV) | payer OTHER, SELFPAY | PROVIDERS: PCP Internal Medicine; Visit Provider Internal Medicine | DX: Z12.31 Encounter for screening mammogram for malignant neoplasm of breast (principal) | CPT/HCPCS: 77063; 77067 ==

== ENCOUNTER 2024-07-03 09:26 | Outpatient (AMB) | payer OTHER, SELFPAY ==
--- NOTE | 2024-07-03 09:26 | A.OFFVIS_ITS ---
Vital Signs 07/03/24 09:33 Height 5 ft 2 in Weight 146 lb 2 oz BMI 26.7 BP 127/67 Blood Pressure Location Lt brachial Position Sitting Pulse 79 Intake Visit Reasons: 6 months breast exam Intake Note: Patient is seen in office for 6 month follow up visit, breast exam. Pt c/o: left breast seems larger than the right, denies any other concerns mm:05/08/24 MRI:08/23/22 [employer] Required: No Wet Process Miller: Wet Process Miller Present Accompanied by: Self / Same As Patient Allergies leflunomide Allergy (Unknown, Verified 07/03/24 09:27) abd pain oseltamivir Adverse Reaction (Unknown, Verified 07/03/24 09:27) dizziness, headaches, ringing in the ears ?IVP dye Allergy (Unknown, Uncoded 07/03/24 09:27) headache, nausea unknown arthrits medication Allergy (Unknown, Uncoded 07/03/24 09:27) stomach upset Contrast Allergy PreMed Pack Adverse Reaction (Unknown, Uncoded 07/03/24 09:27) stomach upset Medication List - Last Reconciled 07/03/24 by Bud Sabillon MD albuterol sulfate 90 mcg/actuation (Ventolin HFA) 2 puffs inhalation Q6H PRN budesonide 90 mcg/actuation (Pulmicort Flexhaler) 1 inh inhalation BID cholecalciferol (vitamin D3) 50 mcg PO DAILY 90 days fexofenadine (Kritsa Allergy) 180 mg PO DAILY folic acid 1 mg PO DAILY methotrexate sodium 17.5 mg PO QWEEK mupirocin 2% 1 appl topical BID omeprazole 20 mg PO DAILY tizanidine 4 mg PO .QD triamcinolone acetonide 0.5% 1 appl topical BID HPI Comments Details: 58-year-old female patient returning for a routine breast examination. She has a strong family history for breast cancer is considered a high risk for breast cancer due to her mother, sisters, maternal grandmother, and maternal aunt having been diagnosed with breast cancer. Her maternal aunt from breast cancer. She denies any new members of her family with cancer. Her initial Alysha score lifetime risk of breast cancer was determined to be 30.9 % placing her at high risk for breast cancer. She was followed by Dr. Bundy and placed on the high risk protocol including yearly mammogram and MRI evaluations. She previously underwent a right breast needle core biopsy which was benign. She reports her menarche at the age of 10, she is , her 1st child was born when she was 17, she did not breast feed her children. She is postmenopausal and her last menstrual period was at the age of 48. She underwent genetic testing in 2019 which confirmed remaining lifetime risk of breast cancer of approximately 31%. No known genetic mutations of clinical significance were identified however 1 significant of unknown significance was identified. Her last mammogram dated 05/08/2024 revealed no mammographic specific evidence of malignancy (BI-RADS 2). Her last breast MRI performed on 08/23/2022 revealed no MR specific evidence of malignancy (BI-RADS 1 bilaterally). She was due for a breast MRI this year however wished to postpone this due to right knee surgery which made it difficult for positioning in the MRI machine. She continues to have problems with the knee with continued pain and wishes to hold off on the MRI still. She is scheduled for a follow-up mammogram on 05/12/2025 [facility] Medical History Well woman exam with routine gynecological exam Lumbar degenerative disc disease Vitamin D deficiency Allergic rhinitis Hypothyroid Asthma Cervical cancer screening Rheumatoid arthritis Breast cancer screening, high risk patient Surgical History History of total right knee replacement S/P panniculectomy H/O tubal ligation History of cholecystectomy History of sleeve gastrectomy History of breast biopsy History of gastric surgery (12/2015) History of removal of laparoscopic gastric banding device (10/03/15) Hx of laparoscopic gastric banding (01/2010) Family History Father Family history of prostate cancer, Onset Age: 70 Mother History of breast cancer, Onset Age: 55 Sister History of breast cancer, Onset Age: 47 Maternal Grandmother History of breast cancer, Onset Age: 58 Colon cancer Maternal Aunt History of breast cancer, Onset Age: 37 Maternal Aunt History of breast cancer, Onset Age: 40 Sister Bone cancer Social History Housing: Apartment Alcohol intake: former Comment: last time years ago Patient Tobacco Use Status: Never used Tobacco e-Cigarette/Vaping Use: Never Used Second Hand Smoke Exposure: No service: No Current occupational status: unemployed Cognitive needs: No Hearing needs: No Vision needs: No Female Reproductive History Menstrual Age of Menarche: 8 Review of Systems Const Denies chills, Denies fever(s), Denies headache(s) and Denies poor appetite ENT Denies dizziness and Denies headache(s) Card Denies chest pain, Denies rapid heart rate, Denies palpitations and Denies slow heart rate Resp Denies chest congestion, Denies cough, Denies pain on inspiration and Denies wheezing GI Denies abdominal pain, Denies bloating, Denies change in stool character, Denies constipation, Denies diarrhea, Denies nausea, Denies vomiting and Denies hematem esis Denies nipple discharge Musc Details: Rheumatoid arthritis Skin/Breast Denies breast swelling, Denies breast skin changes, Denies breast pain, Denies breast mass, Denies change in breast shape, Denies change in pigmentation, Denies nipple discharge, Denies erythema and Denies rash Neuro Denies dizziness and Denies headache(s) Psych Denies anxiety and Denies depression Endo Denies palpitations Raphael/Lymph Denies easy bleeding, Denies easy bruising and Denies lymphadenopathy Aller/Immun Denies wheezing Physical Exam Const General: cooperative, comfortable and well developed Nutritional Appearance: well nourished Orientation/consciousness: patient oriented x3 Eyes Sclerae: sclerae normal EOM: EOMs intact bilaterally Neck Neck: Yes normal visual inspection Lymphatic: no lymphadenopathy noted Chest Other: Left breast: No skin change, no nipple retraction, no nipple discharge, no palpable mass, no enlarged lymph nodes. Right breast: No skin change, no nipple retraction, no nipple discharge, no palpable mass, no enlarged lymph nodes Resp Effort & Inspection: normal respiratory effort, no cough, no respiratory distress and no stridor Cardio Jugular venous distension: no JVD GI Inspection: Yes normal to inspection Palpation (GI): Soft to palpation, nontender, no guarding and not rigid Skin General skin exam: dry skin Rashes: no rashes Neuro Other: Mobility Assessment: 1. 3 meter assessment time (seconds) 5 2. Gait observations: Normal balance and gait General: patient oriented x3 and no focal motor deficits Extrem General: Yes full ROM and Yes no clubbing, cyanosis or edema Psych Appearance: grossly normal Assessment & Plan Assessment & Plan (1) Breast cancer screening, high risk patient: Comment: Alysha model 34% lifetime risk Code(s): Z12.39 - Encounter for other screening for malignant neoplasm of breast Category: Medical (2) Family history of breast cancer: Comment: MRI breast July 2022 Code(s): Z80.3 - Family history of malignant neoplasm of breast Category: Medical Plan Patient returns for follow-up breast examination due to her high risk for breast cancer. She continues to do well and shows no evidence of breast disease at this time. Her most recent mammogram of 05/08/2024 revealed no suspicious findings (BI-RADS 1). MRI dated 09/13/2022 revealed no MR specific evidence of malignancy (BI-RADS 1 bilaterally). She is due for follow-up breast MRI however postponed this due to knee surgery which made positioning difficult. She should return in 6 months for routine breast examination. She is welcome to call sooner for any new concerns. Coding Level of Care Code Est Pt Level 3 (62630) Complex EM visit Add On G2211 Diagnoses Breast cancer screening, high risk patient Z12.39 Family history of breast cancer Z80.3
--- OUTSIDE RECORDS SUMMARY | 2024-07-03 09:29 | XMS_ITS | Data Portability ---
Author Organization [place] [facility], [facility] Address [address] [place] [address] Care Team Providers Care Commodity Management Specialist Name Role Phone DEVON DOYLECIRILO Primary Care Provider Assessment Encounter Date Assessment Date Assessment LastModified by Organization Details LastModified Time 12/18/2023 12/18/2023 Remains tight end range flexion and extension. TTP along medial aspect of PF joint. Challenged w/ prolonged standing activity. Improved A knee ROM during gait, but continues to struggle w/ bending and TKE. Continue to progress and focus on L knee ROM and gait mechanics. Not available 12/18/2023 11:45:25 12/30/2023 12/30/2023 Pt continues to use AD, presenting with antalgic gait, lacking TKE during midstance. Unable to reach 120 deg of knee flex w/ AA or PROM. Pt c/o pain and extreme discomfort at end range. Continue to progress and focus on L knee ROM and gait mechanics. Not available 01/02/2024 08:21:39 01/15/2024 01/15/2024 PROBLEM: Status post Right total knee arthroplasty performed on 10/12/2023 with manipulation performed on 11/11/2023 HPI: Patient returns today for follow-up of their total knee arthroplasty. She continues to struggle with range of motion. She has now about a 10 degree flexion contracture. Notes implies she gets about t 110 degrees of flexion in physical therapy. Past family, medical, social history and review of systems has been reviewed, updated and is located in the patient? s chart. EXAM: The patient ambulates with anantalgic gait. The surgical wound is well-healed. There is no erythema, redness, or signs of infection. Right knee range of motion 10-95??. There is no significant sub-patellar crepitus. There is expected postoperative swelling but no significant effusion. The knee is stable to varus and valgus loading at 0 and 90?? without evidence of significant instability. IMAGING: Previously obtained X-rays reviewed in the office today on [facility] PACS: Weightbearing AP of both knees, lateral of the right knee, and sunrise view of both knees demonstrate; Show appropriate position of the patient's right total knee arthroplasty. Overall limb alignment is neutral. Implant position is satisfactory. Patellar tracking is midline. Bone implant interfaces are intact and no evidence of fracture or osteolysis. IMPRESSION: Status post Right total knee arthroplasty with pre and postoperative stiffness PLAN: The patient has struggled with her postoperative range of motion. She has undergone ambulation. She has always reported in the office that she has been doing physical therapy. Therapist have reported to me that her pain tolerance is challenging at times. I recommended screening laboratory studies ESR, CRP and CBC. Will rule out deep infection. Following this patient will continue to work on range of motion as an outpatient. I offered her a genicular nerve block for pain control. She refused this in the office today. Patient is a year out from surgical intervention she may be a candidate for arthroscopic debridement. I am Guarded about her long-term prognosis. [facility] speech recognition gauge checker software was used to create portions of this document. An attempt at proofreading has been made to minimize errors. Please call for corrections. [email or web address] Not available 01/15/2024 15:44:18 04/02/2024 04/02/2024 PROBLEM: Status post Right total knee arthroplasty performed on 09/13/23 with postoperative manipulation HPI: Patient returns today for follow-up of their total knee arthroplasty. The patient was discharged from physical therapy in December. She complains of 7 out of 10 pain. She reports difficulty walking. She denies any fevers or chills. Her last office visit laboratory studies were obtained which were negative. Patient states she is doing home exercise program. Patient states that her symptoms are stable. She continues to ambulate with a cane. She describes swelling and tightness in her knee. Past family, medical, social history and review of systems has been reviewed, updated and is located in the patient? s chart. EXAM: The patient ambulates with a non-antalgic gait. The surgical wound is well-healed. There is no erythema, redness, or signs of infection. Right knee range of motion 5-100??. There is no significant sub-patellar crepitus. There is expected postoperative swelling but no significant effusion. The knee is stable to varus and valgus loading at 0 and 90?? without evidence of significant instability. IMAGING: X-rays ordered, obtained and reviewed in the office today on [facility] PACS: Weightbearing AP of both knees, lateral of the right knee, and sunrise view of both knees demonstrate; Show appropriate position of the patient's right total knee arthroplasty. Overall limb alignment is neutral. Implant position is satisfactory. Patellar tracking is midline. Bone implant interfaces are intact and no evidence of fracture or osteolysis. There is no evidence of interval change IMPRESSION: Status post Right total knee arthroplasty with postoperative stiffness PLAN: The patient returns the office today with a family member who translates. She continues to describe severe pain in her knee. Patient requested a refill of tizanidine. I think this is reasonable. I indicated to her I would give her just 1 prescription. I indicated patient would not provide her further narcotics at this point. I highlighted the importance of participation in physical therapy. Currently patient has access to a bicycle. I discussed strategies to help with range of motion. Patient's range is actually relatively stable. She is within 5 degrees of terminal extension. I am hopeful that with time she may actually gained some additional extension. If she reaches the 1 year point she may be a candidate for arthroscopic or open debridement. I be very guarded about her response. Patient can return to the office in 3 months time. I attempted to answer all of her and her family's questions. [facility] speech recognition gauge checker software was used to create portions of this document. An attempt at proofreading has been made to minimize errors. Please call for corrections. [email or web address] Not available 04/02/2024 18:18:10 07/02/2024 07/02/2024 I am seeing the patient today under the supervision of Dr. Padilla who was available but did not see the patient. HPI: Patient is a 58-year-old female approximately 10 months status post right total knee arthroplasty performed by Dr. Gupta. She has had a difficult postoperative course. Is still dealing with postoperative stiffness. Continues to have pain and stiffness in the knee that limits her ability to walk and perform ADLs. Has a lot of pain at night as well. Pain is predominantly over the anterior aspect of the knee. PMH/PSH/MEDS/ALL /FMH/SOC HX/ROS all reviewed in detail per my medical intake sheet. ROS: the patient denies fevers or chills Exam: Vitals signs as noted. Alert and oriented x3. Appears well and in no acute distress. Extremities: Incision is well-healed. Calves are soft and nontender. No evidence of DVT. No lower extremity edema. Neurovascular status at baseline. RIght knee: Moderate tenderness to palpation about the peripatellar region and quadriceps tendon. Range of motion is 5-100. Ligaments are stable to varus and valgus stresses. No significant effusion. Quad strength is 4+/5. X-rays were reviewed NEOS. 3 views of the right knee demonstrate a total joint arthroplasty with good interfaces and alignment. No evidence of any lysis or loosening. No acute fractures appreciated. No change with previous radiographs. Assessment: The patient is approximately 10 months s/p TKA. quadriceps tendinitis, post op stiffness leading to peripatellar irritability. Plan: I explained the nature of the diagnosis with the patient and its treatment options both conservative and surgical. Conservative measures were discussed at length including but not limited to physical therapy, bracing, anti-inflammator ies. Patient would like to try Voltaren gel for now. Recommended recheck in 3 months for repeat evaluation past the 1 year michael and for discussion of potential arthroscopy to debride adhesions and improve stiffness. We did discuss the lower probability of success with this surgery compared to other more favorable orthopedic surgeries. The patient understands and agrees with the plan. They know to call if they have any further questions or concerns regarding their symptoms, or to follow up sooner if needed. [email or web address] Not available 07/02/2024 12:20:57 Plan of Treatment Reminders Order Date Submit Date Provider Last Modified By Organization Details Last Modified Time Details Appointments RECHECK 15 2024 10:45A Sabrina Mccormack PA-C Not available Not available Not available Lab ESR (erythroc yte sedimenta tion rate), blood 2023 024 [place] [facility], [address], [place], [address], 01/15/2024 21:13:25 C reactive protein, QN, serum or plasma 2023 024 [place] [facility], [address], [address], [place], [address], 01/15/2024 21:13:26 CBC w/ auto diff 2023 024 [place] [facility], [address], [address], [place], [address], 01/15/2024 21:13:24 Referral None recorded. Procedures None recorded. Surgeries None recorded. Imaging XR, knee, 3 view - 205 rtkr pain 2023 024 [email or web address] [facility], [address], [place], [address], 04/23/2024 10:40:12 Medication Orders tizanidin e 4 mg tablet 2023 024 [email or web address] [facility], [address] [place], [address], 04/02/2024 16:08:21 diclofena c 1 % topical gel 2023 024 [email or web address] [facility], [address] [place], [address], 07/03/2024 07:52:05 Patient TargetsNo targets recorded. Patient InstructionsNo instructions recorded. Reason for Referral None Reported. Results Created Date Observation Date Name Description Value Unit Range Abnormal Flag Note LastModifiedBy Organization Detail LastModifiedTime 01/15/2001/15/2024 CBC WITH DIFFE RENTI AL/PL ATELE T WBC 7.0 K/mm3 4.0-11 .0 Not Available [facility] [address], [place], [address], 01/15/2024 21:13:24 01/15/20 24 01/15/2024 CBC WITH DIFFE RENTI AL/PL ATELE T RBC 4.47 M/mm3 4.20-5 .40 Not Available [address], [address], 01/15/2024 21:13:24 01/15/20 24 01/15/2024 CBC WITH DIFFE RENTI AL/PL ATELE T hemoglobin 12.5 gm/dL 11.7-1 5.5 Not Available [address], [address], 01/15/2024 21:13:24 01/15/20 24 01/15/2024 CBC WITH DIFFE RENTI AL/PL ATELE T hematocrit 39.4 % 35.7-4 5.8 Not Available [address], [address], 01/15/2024 21:13:24 01/15/20 24 01/15/2024 CBC WITH DIFFE RENTI AL/PL ATELE T MCV 88.1 fL 80.0-1 00.0 Not Available [address], [address], 01/15/2024 21:13:24 01/15/20 24 01/15/2024 CBC WITH DIFFE RENTI AL/PL ATELE T MCH 28.0 pg 27.0-3 4.0 Not Available [address], [address], 01/15/2024 21:13:24 01/15/20 24 01/15/2024 CBC WITH DIFFE RENTI AL/PL ATELE T MCHC 31.7 g/dL 33.0-3 7.0 below low normal Not Available [address], [address], 01/15/2024 21:13:24 01/15/20 24 01/15/2024 CBC WITH DIFFE RENTI AL/PL ATELE T RDW 46.3 fL <47.0 Not Available [address], [address], 01/15/2024 21:13:24 01/15/20 24 01/15/2024 CBC WITH DIFFE RENTI AL/PL ATELE T platelets 314 K/mm3 150-46 0 Not Available [address], [address], 01/15/2024 21:13:24 01/15/20 24 01/15/2024 CBC WITH DIFFE RENTI AL/PL ATELE T neutrophils 42.3 % 44-76 below low normal Not Available [address], [address], 01/15/2024 21:13:24 01/15/20 24 01/15/2024 CBC WITH DIFFE RENTI AL/PL ATELE T lymphs 48.9 % 15-43 above high normal Not Available [address], [address], 01/15/2024 21:13:24 01/15/20 24 01/15/2024 CBC WITH DIFFE RENTI AL/PL ATELE T monocytes 7.0 % 4.5-10 .5 Not Available [address], [address], 01/15/2024 21:13:24 01/15/20 24 01/15/2024 CBC WITH DIFFE RENTI AL/PL ATELE T eos 0.9 % 0-6 Not Available [address], [address], 01/15/2024 21:13:24 01/15/20 24 01/15/2024 CBC WITH DIFFE RENTI AL/PL ATELE T basos 0.6 % 0-2 Not Available [address], [address], 01/15/2024 21:13:24 01/15/20 24 01/15/2024 CBC WITH DIFFE RENTI AL/PL ATELE T neutrophils (absolute) 3.0 K/mm3 1.3-7. 0 Not Available [address], [address], 01/15/2024 21:13:24 01/15/20 24 01/15/2024 CBC WITH DIFFE RENTI AL/PL ATELE T lymphs (absolute) 3.4 K/mm3 0.8-3. 1 above high normal Not Available [address], [address], 01/15/2024 21:13:24 01/15/20 24 01/15/2024 CBC WITH DIFFE RENTI AL/PL ATELE T monocytes(ab solute) 0.5 K/mm3 0.4-0. 9 Not Available [address], [address], 01/15/2024 21:13:24 01/15/20 24 01/15/2024 CBC WITH DIFFE RENTI AL/PL ATELE T eos (absolute) 0.1 K/mm3 0.0-0. 4 Not Available [address], [address], 01/15/2024 21:13:24 01/15/20 24 01/15/2024 CBC WITH DIFFE RENTI AL/PL ATELE T baso (absolute) 0.0 K/mm3 0.0-0. 1 Not Available [address], [address], 01/15/2024 21:13:24 01/15/20 24 01/15/2024 CBC WITH DIFFE RENTI AL/PL ATELE T immature granulocytes 0.3 % Not Available [address], [address], 01/15/2024 21:13:24 01/15/20 24 01/15/2024 CBC WITH DIFFE RENTI AL/PL ATELE T immature grans (abs) 0.0 K/mm3 Not Available [address], [address], 01/15/2024 21:13:24 01/15/20 24 01/15/2024 CBC WITH DIFFE RENTI AL/PL ATELE T NRBC 0.0 #/100 _WBC' s Not Available [address], [address], 01/15/2024 21:13:24 01/15/20 24 01/15/2024 CBC WITH DIFFE RENTI AL/PL ATELE T hematology comments: Commen t AUTOM ATED DIFFE RENTI AL MPV 9.5 FL 9.4-1 2.4 N ABS. NRBC 0.0 K/MM3 N Not Available [address], [address], 01/15/2024 21:13:24 01/15/20 24 01/15/2024 SEDIM ENTAT ION RATE- WESTE RGREN sedimentatio n rate-westerg paola 4 mm/HR 0-20 Not Available [address], [address], 01/15/2024 21:13:25 01/15/20 24 01/15/2024 C-TEZ CTIVE PROTE IN, QUANT C-reactive protein, quant <0.3 mg/dL 0-0.5 Not Available [address], [address], 01/15/2024 21:13:26 03/20/20 24 09/13/2023 imagi ng/di agnos tic resul t No observ ation record ed. [email or web address] Not Available 02/21 04:38:44 04/02/20 24 04/02/2024 XR, knee, 3 view [email or web address]:/ [email or web address] ?Encry pted=s hAaTro YD8dLq bEUv6g %2BXZw aYqtaq 0bqfl% 2Fg9IQ a4ajBk vP9nXo QUaueC m3YtLR FvZlgJ JJ8mAn HZtai3 7g4440 AC0Kqa n6DUKe hKiQtr MwF INTERFACE [facility] [address], [place], [address], 04/02/2024 15:56:44 04/02/20 24 04/02/2024 XR, knee, 3 view [email or web address]:/ [email or web address] ?Encry pted=s hAaTro YD8dLq bEUv6g %2BXZw aYqtaq 0bqfl% 2Fg9IQ a4ajBk vP9nXo QUaueC m3YtLR FvZlgJ JJ8mAn HZtai3 0l6903 AC0Kqa n6DUKe hKiQtr MwF INTERFACE [facility] [address] [facility] [address], [place], [address], 04/02/2024 15:56:47 Result Notes None recorded. Problems Name Problem SNOMED Code Status Onset Date Resolution Date Notes Provider Name and Address Organization Details Recorded Time No complaints 500711233 Active Status : 'A'; Not Available [facility] 4 09:14:26 Pain of right knee joint [id number] 00 Active 2023 Víctor Gupta MD [address], [place], [address] , [facility] 4 12:05:08 Problem Notes None recorded. Procedures Surgical History Date Name Laterality Status Provider Name and Address Organization Details Recorded Time 4 02132 Therapeutic Exercise (1:1) completed Gabriele Jiménez DPT [address], [place], [address], [facility] 11/11/2023 16:05:55 4 35433: Manual therapy completed Gabriele Jiménez DPT [address], [place], [address], [facility] 11/11/2023 16:05:59 4 30502 Therapeutic Exercise (1:1) completed Gabriele Jiménez, DPT [address], [place], [address], [facility] 11/07/2023 14:56:02 4 12173: Manual therapy completed Gabriele Jiménez, DPT [address], [place], [address], [facility] 11/07/2023 14:56:02 4 89383 Therapeutic Exercise (1:1) completed Hailey Alcalae, EQUIPMENT MANAGER [address], [place], [address], [facility] 10/28/2023 13:01:34 4 94321: Manual therapy completed Hailey Dodson, EQUIPMENT MANAGER [address], [place], [address], [facility] 10/28/2023 13:01:34 4 07780 Therapeutic Exercise (1:1) completed Hailey Alcalae, EQUIPMENT MANAGER [address], [place], [address], [facility] 10/25/2023 14:44:53 4 60615: Manual therapy completed Hailey Dodson, EQUIPMENT MANAGER [address], [place], [address], [facility] 10/25/2023 14:44:53 4 97896 Therapeutic Exercise (1:1) completed Hailey Alcalae, EQUIPMENT MANAGER [address], [place], [address], [facility] 10/23/2023 16:12:47 4 63623: Manual therapy completed Hailey Dodson, EQUIPMENT MANAGER [address], [place], [address], [facility] 10/23/2023 16:12:47 4 85773 Therapeutic Exercise (1:1) completed Hailey Alcalae, EQUIPMENT MANAGER [address], [place], [address], [facility] 10/23/2023 12:37:18 4 74669: Manual therapy completed Hailey Dodson, EQUIPMENT MANAGER [address], [place], [address], [facility] 10/23/2023 12:37:18 4 18629 Therapeutic Exercise (1:1) completed Hailey Dodson, EQUIPMENT MANAGER [address], [place], [address], [facility] 10/17/2023 11:40:26 4 31772: Manual therapy completed Hailey Dodson, EQUIPMENT MANAGER [address], [place], [address], [facility] 10/17/2023 11:40:26 4 11684 Therapeutic Exercise (1:1) completed Hailey Dodson, EQUIPMENT MANAGER [address], [place], [address], [facility] 10/17/2023 10:22:56 4 31225: Manual therapy completed Hailey Dodson, EQUIPMENT MANAGER [address], [place], [address], [facility] 10/17/2023 10:22:56 4 79392 Therapeutic Exercise (1:1) completed Hailey Dodson, EQUIPMENT MANAGER [address], [place], [address], [facility] 10/14/2023 08:52:25 4 24692: Manual therapy completed Hailey Dodson, EQUIPMENT MANAGER [address], [place], [address], [facility] 10/14/2023 08:52:25 4 34470 Therapeutic Exercise (1:1) completed Hailey Dodson, EQUIPMENT MANAGER [address], [place], [address], [facility] 10/13/2023 16:19:03 4 21615: Manual therapy completed Hailey Dodson, EQUIPMENT MANAGER [address], [place], [address], [facility] 10/11/2023 08:45:24 4 84382 Therapeutic Exercise (1:1) completed Hailey Dodson, EQUIPMENT MANAGER [address], [place], [address], [facility] 10/08/2023 23:54:11 4 84760: Manual therapy completed Hailey Dodson, EQUIPMENT MANAGER [address], [place], [address], [facility] 10/08/2023 23:54:11 4 89248 Therapeutic Exercise (1:1) completed Hailey Dodson, EQUIPMENT MANAGER [address], [place], [address], [facility] 10/04/2023 08:36:40 4 44243: Manual therapy completed Hailey Dodson, EQUIPMENT MANAGER [address], [place], [address], [facility] 10/04/2023 08:36:40 4 54975 Therapeutic Exercise (1:1) completed KATHY ErvinT [address], [place], [address], [facility] 10/02/2023 14:00:10 4 [address]6612: Manual therapy completed KATHY ErvinT [address], [place], [address], [facility] 10/02/2023 14:00:13 Imaging Results Imaging Date Name Status LastModified by Organiz ation Details LastModified Time 09/13/2023 imaging/diag nostic result completed [email or web address] Information not available 03/20/2024 04:38:44 04/02/2024 XR, knee, 3 view completed INTERFACE [facility] [address], [place], [address], 04/02/2024 15:56:44 04/02/2024 XR, knee, 3 view completed INTERFACE [facility] [address], [place], [address], 04/02/2024 15:56:47 Procedure Notes None recorded. Medical Equipment None Reported. Allergies No known drug allergies Medications Name Sig Start Date Stop Date Status Note LastModified by Organization Details LastModified Time celecoxib 200 mg capsule Take 1 capsule every day by oral route for 30 days. active Not Available Not Available No t Available triamcinolo ne acetonide 0.5 % topical cream APPLY TO AFFECTED AREA S) TWO TIMES A DAY active Not Available Not Available No t Available IBU 800 mg tablet TAKE ONE TABLET BY MOUTH THREE TIMES A DAY NEEDED active Not Available Not Available No t Available tizanidine 4 mg tablet TAKE ONE TABLET BY MOUTH EVERY DAY active Not Available Not Available No t Available fexofenadin e 180 mg tablet TAKE ONE TABLET BY MOUTH EVERY DAY active Not Available Not Available No t Available oxycodone-a cetaminophe n 5 mg-325 mg tablet TAKE 1 TABLET BY MOUTH EVERY 4 TO 6 HOURS NEEDED FOR PAIN 10/13 completed Not Available Not Available Not Available methotrexat e sodium 2.5 mg tablet TAKE 7 TABLETS BY MOUTH ONCE A WEEK DIRECTED active Not Available Not Available No t Available aspirin 325 mg tablet,rebecca yed release TAKE ONE TABLET BY MOUTH TWICE A DAY FOR 30 DAYS STARTING AFTER SURGERY active Not Available Not Available No t Available hydrocodone 7.5 mg-acetamin ophen 325 mg tablet TAKE ONE TABLET BY MOUTH FOUR TIMES A DAY NEEDED FOR PAIN active Not Available Not Available No t Available pantoprazol e 40 mg tablet,rebecca yed release TAKE ONE TABLET BY MOUTH EVERY DAY STARTING DAY OF SURGERY active Not Available Not Available No t Available docusate sodium 100 mg capsule TAKE ONE CAPSULE BY MOUTH TWICE A DAY DIRECTED STARTING AFTER SURGERY active Not Available Not Available No t Available gabapentin 300 mg capsule TAKE ONE CAPSULE BY MOUTH EVERY DAY active Not Available Not Available No t Available omeprazole 20 mg capsule,del ayed release TAKE ONE CAPSULE BY MOUTH EVERY DAY active Not Available Not Available No t Available folic acid 1 mg tablet TAKE ONE TABLET BY MOUTH EVERY DAY active Not Available Not Available No t Available oxycodone-a cetaminophe n 2.5 mg-325 mg tablet TAKE ONE TABLET BY MOUTH EVERY 4 TO 6 HOURS NEEDED FOR PAIN 10/13 completed Not Available Not Available Not Available hydromorpho ne 4 mg tablet TAKE 1/2 (HALF) TO 1 TABLET BY MOUTH EVERY 4 HOURS NEEDED FOR MODERATE TO SEVERE PAIN 10/13 completed Not Available Not Available Not Available piroxicam 20 mg capsule TAKE ONE CAPSULE BY MOUTH EVERY DAY active Not Available Not Available No t Available Ventolin HFA 90 mcg/actuati on aerosol inhaler INHALE TWO PUFFS BY MOUTH EVERY 6 HOURS NEEDED FOR SHORTNESS OF BREATH OR WHEEZING active Not Available Not Available No t Available Allergy Relief (loratadine ) 10 mg tablet TAKE ONE TABLET BY MOUTH EVERY DAY active Not Available Not Available No t Available tizanidine 4 mg capsule Take 1 capsule every 6 hours by oral route. 2023 active Not Available Not Available Not Avai lable Pulmicort Flexhaler 90 mcg/actuati on breath activated INHALE ONE PUFF BY MOUTH TWICE A DAY active Not Available Not Available No t Available oxycodone 10 mg tablet 0.5-1 tab q4-6 h as needed for pain active Not Available Not Available No t Available diclofenac 1 % topical gel APPLY 2 GRAMS TO THE AFFECTED AREA(S) BY TOPICAL ROUTE 4 TIMES PER DAY 2023 active Not Available Not Available Not Avai lable Vitamin D3 50 mcg (2,000 unit) capsule TAKE ONE CAPSULE BY MOUTH EVERY DAY active Not Available Not Available No t Available Asmanex HFA 100 mcg/actuati on aerosol inhaler INHALE TWO PUFFS BY MOUTH TWICE A DAY active Not Available Not Available No t Available Vitals Date Recorded Body height Body mass index (BMI) Body weight Provider Name and Address Organization Details Last Updated DateTime 01/15/2024 157.48 cm 27.3 kg/m2 06590.26 g TYREL Salinas [facility] 01/15/2024 15:14:26 Date Recorded Body height Provider Name an d Address Organization Details Last Updated DateTime 04/02/2024 157.48 cm ORTEGA [facility] 04/02/2024 15:50:25 Date Recorded Body height Body mass index (BMI) Body weight Provider Name and Address Organization Details Last Updated DateTime 07/02/2024 157.48 cm 27.3 kg/m2 29506.26 g DANIELLE KirklandHEUREUX [facility] 07/02/2024 10:29:38 Social History Question Answer Notes LastModified by Organizat ion Details LastModified Time Tobacco Smoking Status Never Smoker DANIELLE Kevin'HEUREUX null, [facility] 10/14/2023 14:12:53 What Is Your Level Of Alcohol Consumption? None Information not available 10/14/2023 What Is Your Relationship Status? Single Information not available 10/14/2023 Do You Use Any Illicit Or Recreational Drugs? No Information not available 10/14/2023 Do You Or Have You Ever Used Any Other Forms Of Tobacco Or Nicotine? No Information not available 10/14/2023 Sex: Unknown Functional Status None recorded. Mental Status None recorded. Family History Nothing Reported. Medical History Condition Response Allergies/Hayfever N Coronary Artery Disease N Anxiety/Depression N Emphysema N Thyroid Problems N COPD N Pacemaker N Anemia N Kidney/Bladder Problems N Vascular Disease N Heart Attack (OK) N Gastrointestinal Disease N Diabetes N Autoimmune disease N Bleeding Disorder N Orthotics N Arthritis Y Seizures/Epilepsy N Blood Clot N AIDS/HIV N Congestive Heart Failure (CHF) N Acid Reflux (GERD) N Cancer N Stroke N Asthma N Peripheral Vascular Disease N Sleep Apnea N Hepatitis N Heart Disease N Rheumatoid Arthritis Y Arrhythmia N Pulmonary Embolism N Fibromyalgia N Hypertension N Osteoporosis N Gynecological HistoryNo gynecological history recorded. Obstetrics History GPAL:G 0 P 0 0 0 0 Past Encounters Encounter ID Performer Location Encounter Start Date Encounter Closed Date Diagnosis/Indication Diagnosis SNOMED-CT Code Diagnosis ICD10 Code [id number] [facility] [address] [place] [address] 10/02/2023 11:53:56 10/02/2023 14:41:32 Aftercare 290513024 Z47.1 History of right total knee replacement 1173820168 656331 Z96.295 [id number] Paulie Florek, PT [facility] [address] [place] [address] 10/04/2023 09:36:29 10/04/2023 16:10:14 Aftercare 170153697 Z47.1 History of right total knee replacement 1923094761 547651 Z96.614 [id number] Paulie Florek, PT [facility] [address] [place] [address] 10/08/2023 15:25:35 10/08/2023 16:25:00 Aftercare 886991773 Z47.1 History of right total knee replacement 4066717852 113519 Z96.651 [id number] Pauliekallie Bledsoe, PT [facility] [address] [place] [address] 10/11/2023 13:09:49 10/11/2023 14:25:54 Aftercare 221502937 Z47.1 History of right total knee replacement 6623344186 010547 Z96.243 [id number] Gabriele Jiménez , DPT [facility] [address] [place] [address] 10/14/2023 14:49:05 10/14/2023 15:59:49 Aftercare [id number] Z47.1 History of right total knee replacement 9273959285 132475 Z96.648 [id number] Jesse Mccormack PA-C [facility] [address] [place] [address] 10/14/2023 14:02:59 10/14/2023 14:46:40 History of right total knee replacement 0792741842 777738 Z96.846 [id number] Paulie Florek, PT [facility] [address] [place] [address] 10/16/2023 13:20:42 10/16/2023 14:52:13 Aftercare 213122461 Z47.1 History of right total knee replacement 7609162525 427826 Z96.003 [id number] Paulie Florek, PT [facility] [address] [place] [address] 10/17/2023 10:18:18 10/17/2023 11:15:25 Aftercare [id number] Z47.1 History of right total knee replacement 4504450156 710127 Z96.029 [id number] Paulie Bledsoe, PT [facility] [address] [place] [address] 10/22/2023 11:50:22 10/22/2023 14:10:51 Aftercare [id number] Z47.1 History of right total knee replacement 3484486497 063977 Z96.489 [id number] Paulie Bledsoe, PT [facility] [address] [place] [address] 10/23/2023 12:43:05 10/23/2023 13:37:48 Aftercare 647590139 Z47.1 History of right total knee replacement 8283560600 222296 Z96.113 [id number] Paulie Bledsoe, PT [facility] [address] [place] [address] 10/25/2023 13:19:59 10/25/2023 14:13:00 Aftercare 907202528 Z47.1 History of right total knee replacement 7398911044 207378 Z96.387 [id number] Paulie Bledsoe, PT [facility] [address] [place] [address] 10/28/2023 12:51:30 10/28/2023 13:40:37 Aftercare 129583302 Z47.1 History of right total knee replacement 7647078819 119435 Z96.367 [id number] Jesse Mccormack PA-C [facility] [address] [place] [address] 10/31/2023 15:00:29 11/20/2023 16:09:35 History of right total knee replacement 7093369886 003759 Z96.928 [id number] Víctor Gupta MD [facility] [address] [place] [address] 11/06/2023 11:21:42 11/27/2023 11:59:28 History of right total knee replacement 2080284724 335306 Z96.651 Pain of ri ght knee joint 7327451828 39894 M25.687 [id number] Gabriele Jiménez , DPT [facility] [address] [place] [address] 11/07/2023 12:53:45 11/07/2023 13:56:37 Aftercare 538857770 Z47.1 History of right total knee replacement 6996152417 406191 Z96.805 [id number] Gabriele Jessy , DPT [facility] [address] [place] [address] 11/11/2023 08:59:58 11/11/2023 13:42:31 Aftercare 758176878 Z47.1 History of right total knee replacement 6872398918 260827 Z96.511 [id number] Gabriele Jiménez , DPT [facility] [address] [place] [address] 11/12/2023 15:18:29 11/12/2023 16:07:26 Aftercare [id number] Z47.1 History of right total knee replacement 7522709754 635760 Z96.065 [id number] Paulie Bledsoe, PT [facility] [address] [place] [address] 11/13/2023 10:20:27 11/13/2023 11:07:10 Aftercare 528566479 Z47.1 History of right total knee replacement 2350507488 777206 Z96.280 [id number] Gabriele Jiménez , DPT [facility] [address] [place] [address] 11/14/2023 12:54:14 11/14/2023 13:54:27 Aftercare 982637153 Z47.1 History of right total knee replacement 0631416985 855978 Z96.926 [id number] Paulie Bledsoe, PT [facility] [address] [place] [address] 11/18/2023 16:00:59 11/18/2023 16:35:22 Aftercare 885811646 Z47.1 History of right total knee replacement 9404972856 845609 Z96.928 [id number] Paulie Bledsoe, PT [facility] [address] [place] [address] 11/19/2023 11:57:00 11/19/2023 13:33:26 Aftercare [id number] Z47.1 History of right total knee replacement 0218437859 468063 Z96.384 [id number] Gabriele Jiménez , DPT [facility] [address] [place] [address] 11/20/2023 12:54:10 11/20/2023 15:51:05 Aftercare [id number] Z47.1 History of right total knee replacement 1962057097 945582 Z96.224 [id number] Paulie Bledsoe, PT [facility] [address] [place] [address] 11/21/2023 15:20:48 11/21/2023 17:28:01 Aftercare [id number] Z47.1 History of right total knee replacement 2364042662 686657 Z96.817 [id number] Gabriele Jiménez , DPT [facility] [address] [place] [address] 11/22/2023 10:29:53 11/22/2023 11:24:15 Aftercare [id number] Z47.1 History of right total knee replacement 7118704390 836291 Z96.627 [id number] Gabriele Jiménez , DPT [facility] [address] [place] [address] 11/25/2023 13:56:50 11/25/2023 14:30:35 Aftercare 396444325 Z47.1 History of right total knee replacement 0400078044 480945 Z96.535 [id number] Mary Jane Apple PA-C [facility] [address] [place] [address] 11/25/2023 14:39:49 11/25/2023 15:36:05 Postoperative pain 395804808 G89.18 [id number] Víctor Gupta MD [facility] [address] [place] [address] 12/04/2023 11:03:12 12/26/2023 10:32:34 History of right total knee replacement 3857124215 120032 Z96.947 [id number] Pauliekallie Bledsoe, PT [facility] [address] [place] [address] 12/03/2023 10:28:02 12/03/2023 11:03:57 Aftercare [id number] Z47.1 History of right total knee replacement 0668199488 214208 Z96.615 [id number] Gabriele Jiménez , DPT [facility] [address] [place] [address] 12/11/2023 11:00:34 12/11/2023 11:51:33 Aftercare [id number] Z47.1 History of right total knee replacement 9270793413 483844 Z96.992 [id number] Paulie Bledsoe, PT [facility] [address] [place] [address] 12/13/2023 08:48:51 12/13/2023 10:04:52 Aftercare [id number] Z47.1 History of right total knee replacement 6345020851 114414 Z96.730 [id number] Paulie Bledsoe, PT [facility] [address] [place] [address] 12/18/2023 11:10:22 12/18/2023 11:33:57 Aftercare [id number] Z47.1 History of right total knee replacement 5337841659 814095 Z96.798 [id number] Paulie Bledsoe, PT [facility] [address] [place] [address] 12/30/2023 09:31:33 12/30/2023 10:14:23 Aftercare [id number] Z47.1 History of right total knee replacement 9619726752 618768 Z96.171 [id number] Víctor Gupta MD [facility] [address] [place] [address] 01/15/2024 15:12:09 02/04/2024 16:11:42 History of right total knee replacement 3509178194 472562 Z96.482 [id number] MD Parker Taylor 2[address] [address] 04/02/2024 15:46:22 04/23/2024 10:40:12 History of right total knee replacement 3030291182 159978 Z96.896 [id number] ESTHER Calvillo [address] [place] [address] 07/02/2024 10:01:50 07/02/2024 12:21:07 History of right total knee replacement 8351265348 934494 Z96.651 Health Concerns Section Related Observation LastModified by Organization Detai ls LastModified Time None Recorded Concern Status LastModified by Organization Details LastModified Time None Recorded Advance Directives Directive None Recorded Payers Encounter Date Sequence Insurance Name Policy Number Policy Fowler Covered Member ID Fowler Member ID Guarantor Name 12/18/2023 1 [facility] [employer] (MEDICAID HMO) [place] Brandi A Damon Brandi Damon 12/30/2023 1 [facility] PL[facility] (MEDICAID HMO) [place] Brandi A Damon Brandi Damon 01/15/2024 1 [facility] NET PLAN (MEDICAID HMO) [place] Brandi A Damon Brandi Damon 04/02/2024 1 [facility] PLAN (MEDICAID HMO) [place] Brandi A Damon Brandi Damon 07/02/2024 1 [facility] PLAN (MEDICAID HMO) [place] Brandi A Damon [id number] Brandi Damon Notes Date Note Type Note Provider Name and Address Organization Details Recorded Time 12/18/2023 text/html Pt reports 7/10 px coming in today. Continues to have pain and swelling. Hailey Dodson, EQUIPMENT MANAGER [address], [place], [address], [facility] 12/20/2023 08:38:01 12/30/2023 text/html Pt reports 7/10 px today. Very frustrated with her progression. Pt states she has been doing all exercises in HEP and ones recommended by MD. SHe continues to experience swelling and high pain levels often. Is unable to tolerate ice but elevates/ massages leg frequently. Hailey Dodson, EQUIPMENT MANAGER [address], [place], [address], [facility] 01/02/2024 08:22:02 OBGyn Episode No OBEpisode recorded.
[2024-07-03 09:33] VITALS: BP 127/67; PULSE 79; BMI 26.7
== END 2024-07-03 09:46 | disposition home or self-care (01) ==
PROVIDERS: PCP Internal Medicine; Visit Provider Surgery
DX: Z12.39 Encounter for other screening for malignant neoplasm of breast (principal); Z80.3 Family history of malignant neoplasm of breast
CPT/HCPCS: 99213; G2211

== ENCOUNTER → 2024-07-03 09:26 | Outpatient (BNVA) | payer OTHER, SELFPAY | PROVIDERS: PCP Internal Medicine; Visit Provider Surgery | DX: Z12.39 Encounter for other screening for malignant neoplasm of breast (principal); Z80.3 Family history of malignant neoplasm of breast | CPT/HCPCS: 99212 ==

== ENCOUNTER 2024-08-05 10:44 | Outpatient (AMB) | payer OTHER, SELFPAY ==
--- NOTE | 2024-08-05 10:58 | MHC.PC.OV ---
Vital Signs 08/05/24 10:59 Height 5 ft 2 in Weight 145 lb BMI 26.5 BP 128/70 Blood Pressure Location Lt brachial Position Sitting Pulse 77 Pulse Source Pulse Oximeter Pulse Oximetry (%) 98 Oxygen Delivery Method Room Air Intake Visit Reasons: weight loss, RA Intake Note: Requesting refills on loratadine and Vitamin D. Allergies leflunomide Allergy (Unknown, Verified 08/05/24 11:00) abd pain oseltamivir Adverse Reaction (Unknown, Verified 08/05/24 11:00) dizziness, headaches, ringing in the ears ?IVP dye Allergy (Unknown, Uncoded 08/05/24 11:00) headache, nausea unknown arthrits medication Allergy (Unknown, Uncoded 08/05/24 11:00) stomach upset Contrast Allergy PreMed Pack Adverse Reaction (Unknown, Uncoded 08/05/24 11:00) stomach upset Tobacco use date assessed: 08/05/24 Dental Screening Dental Screen Date: 08/05/24 Did you have a dental visit in the last 12 months?: Yes Did you have a dental problem in the last 6 months where you did not have access to dental care?: No Was dental information given to patient?: Patient has dentist HPI weight loss, RA HPI Details The patient is a 58-year-old female presenting for a follow-up on her chronic conditions, particularly focusing on her knee and breast cancer history. She underwent knee replacement surgery in August of last year due to severe knee osteoarthritis, which had previously affected her mobility and daily activities. Post-operatively, the patient has experienced significant pain and mobility issues, particularly with bending the knee, necessitating further evaluation and a potential arthroscopic intervention in September to alleviate pain by cleaning the joint. She has a history of breast cancer and is currently under surveillance with Dr. Sabillon following up on her condition. The next MRI is scheduled for next month. Her asthma is largely controlled, using her albuterol inhaler occasionally and having a standing prescription for Budesonide (Pulmicort), which she is not currently using. Asthma management includes daily use of vitamin D supplementation, methotrexate, and a muscle relaxant, tizanidine. She mentioned using omeprazole as needed for GERD, especially when taking methotrexate. Additionally, she has experienced seasonal allergies, managed with loratadine. [facility] Medical History Well woman exam with routine gynecological exam Lumbar degenerative disc disease Vitamin D deficiency Allergic rhinitis Hypothyroid Asthma Cervical cancer screening Rheumatoid arthritis Breast cancer screening, high risk patient Surgical History History of total right knee replacement S/P panniculectomy H/O tubal ligation History of cholecystectomy History of sleeve gastrectomy History of breast biopsy History of gastric surgery (12/2015) History of removal of laparoscopic gastric banding device (10/03/15) Hx of laparoscopic gastric banding (01/2010) Family History Father Family history of prostate cancer, Onset Age: 70 Mother History of breast cancer, Onset Age: 55 Sister History of breast cancer, Onset Age: 47 Maternal Grandmother History of breast cancer, Onset Age: 58 Colon cancer Maternal Aunt History of breast cancer, Onset Age: 37 Maternal Aunt History of breast cancer, Onset Age: 40 Sister Bone cancer Social History Housing: Apartment Alcohol intake: former Comment: last time years ago Patient Tobacco Use Status: Never used Tobacco Tobacco use type: Cigarette e-Cigarette/Vaping Use: Never Used Second Hand Smoke Exposure: No service: No Current occupational status: unemployed Cognitive needs: No Hearing needs: No Vision needs: No Female Reproductive History Menstrual Age of Menarche: 8 Questionnaire PHQ-9 Over the last 2 weeks, how often have you been bothered by any of the following problems? 1. Little interest or pleasure in doing things: not at all 2. Feeling down, depressed, or hopeless: not at all 3. Trouble falling or staying asleep, or sleeping too much: several days 4. Feeling tired or having little energy: not at all 5. Poor appetite or overeating: not at all 6. Feeling bad about yourself - or that you are a failure or have let yourself or your family down: not at all 7. Trouble concentrating on things, such as reading the newspaper or watching television: not at all 8. Moving or speaking so slowly that other people could have noticed. Or the opposite - being so fidgety or restless that you have been moving around a lot more than usual: not at all 9. Thoughts that you would be better off or of hurting yourself in some way: not at all Total score: 1 Depression Screening Interpretation: Negative Depression Screening Done: Yes Source: Developed by Drs. Jean Pierre Mcdaniel, Mayra Kilgore, Jerord Ruth and colleagues, with an educational christiano from [employer]. Thrive Questionnaire Date Thrive assessed: 08/05/24 I am a: Patient What is your living situation today?: I have a steady place to live Within the past 12 months, did the food you bought not last and you didn't have the money to get more?: Never true Within the past 12 months, did you worry whether your food would run out before you got money to buy more?: Never true Do you have trouble paying for medicines?: No Do you have trouble getting transportation to medical appointments?: No Do you have trouble paying your heating and electricity bill?: No Do you have trouble taking care of your child, family member or friend?: No Do you have trouble with day-to-day activities such as bathing, preparing meals, shopping, managing finances, etc.?: No Are you currently unemployed and looking for a job?: No Are you interested in more education?: No Currently or been in a relationship where the following occur: No concerns reported THRIVE Score: 0 AUDIT C Alcohol Use Questionnaire (AUDIT-C) 1. How often do you have a drink containing alcohol?: Monthly or less 2. How many drinks containing alcohol do you have on a typical day when you are drinking?: 1 or 2 3. How often do you have six or more drinks on one occasion?: Never Total Score: 1 JASMIN-7 AMB Questionnaire JASMIN-7 Date JASMIN - 7 assessed: 08/05/24 Feeling nervous, anxious, or on edge: 0 = Not at all Not being able to stop or control worryin = Not at all Worrying too much about different things: 0 = Not at all Trouble relaxin = Not at all Being so restless that it is hard to sit still: 0 = Not at all Becoming easily annoyed or irritable: 0 = Not at all Feeling afraid as if something awful might happen: 0 = Not at all Total JASMIN-7 score (0-4 normal; 5-9 mild; 10-14 moderate; 15-21 severe): 0 Source: Developed by Drs. Jean Pierre Mcdaniel, Mayra Kilgore, Jerrod Ruth and colleagues, with an educational christiano from [employer]. Physical exam (Primary Care) Vital Signs: Last Vital Signs Pulse 77 08/05/24 10:59 BP 128/70 08/05/24 10:59 Pulse Ox 98 08/05/24 10:59 Oxygen Delivery Method Room Air 08/05/24 10:59 BMI result Body Mass Index 26.5 Tobacco/Smoking Status: Tobacco use Status Tobacco use date assessed 08/05/24 08/05/24 11:02 Patient Tobacco Use Status Never used Tobacco 08/05/24 10:59 Tobacco use type Cigarette 08/05/24 11:02 e-Cigarette/Vaping Use Never Used 08/05/24 10:59 PHQ-9: PHQ-9 Score PHQ-9: Total score 1 08/05/24 11:09 Depression Screening Interpretation: Negative Thrive Assessment: Date of Thrive Assessment Date Thrive assessed 08/05/24 08/05/24 11:02 Currently or been in a relationship where the following occur: No concerns reported Const General: alert; No acute distress Eyes Conjunctivae: conjunctivae normal Resp Auscultation: clear to auscultation bilaterally Cardio Rate: regular rate Rhythm: regular rhythm GI Inspection: Yes normal to inspection Extrem General: Yes normal to inspection and No edema Coding Level of Care Code Est Pt Level 4 (73036) Diagnoses GERD (gastroesophageal reflux disease) K21.9 Family history of breast cancer Z80.3 Rheumatoid arthritis M06.9 History of sleeve gastrectomy Z90.3 Asthma J45.909 Osteoarthritis of right knee M17.11 Assessment & Plan Assessment & Plan (1) GERD (gastroesophageal reflux disease): Code(s): K21.9 - Gastro-esophageal reflux disease without esophagitis Category: Medical (2) Family history of breast cancer: Comment: MRI breast July 2022 Code(s): Z80.3 - Family history of malignant neoplasm of breast Category: Medical (3) Rheumatoid arthritis: Code(s): M06.9 - Rheumatoid arthritis, unspecified Category: Medical (4) History of sleeve gastrectomy: Comment: December 2015 Code(s): Z90.3 - Acquired absence of stomach [part of] Category: Surgical (5) Asthma: Code(s): J45.909 - Unspecified asthma, uncomplicated Category: Medical (6) Osteoarthritis of right knee: Comment: september 13, 2023 Dr. Carolyn FORRESTER, S/p knee replacement 08/2023 Code(s): M17.11 - Unilateral primary osteoarthritis, right knee Category: Medical Plan: problem with pain and limitation of movement and will have an appt in September possible arthroscopy Plan - Continue breast cancer surveillance with scheduled follow-up MRI next month. - Re-evaluate knee osteoarthritis in September for potential arthroscopy to address ongoing pain and mobility issues. - Maintain current asthma therapy; use albuterol PRN and ensure inhaled corticosteroid compliance if needed in the future. - GERD management with omeprazole as required, particularly when taking methotrexate. - Continue loratadine for seasonal allergies. - Ensure adherence to current medication regimen, including methotrexate and vitamin D supplementation. - Reinforce the importance of protective measures during flu season and caution against large gatherings due to ongoing transmission of respiratory and gastrointestinal viruses. Medications: New loratadine 10 mg PO DAILY 90 tabs 3RF Refilled cholecalciferol (vitamin D3) 50 mcg PO DAILY 90 days 90 caps 3RF E55.9 - Vitamin D deficiency, unspecified omeprazole 20 mg PO DAILY 30 caps 0RF K21.9 - Gastro-esophageal reflux disease without esophagitis
[2024-08-05 10:59] VITALS: BP 128/70; PULSE 77; O2SAT 98; BMI 26.5
== END 2024-08-05 11:30 | disposition home or self-care (01) ==
PROVIDERS: PCP Internal Medicine; Visit Provider Internal Medicine
DX: K21.9 Gastro-esophageal reflux disease without esophagitis (principal); Z80.3 Family history of malignant neoplasm of breast; M06.9 Rheumatoid arthritis, unspecified; Z90.3 Acquired absence of stomach [part of]; J45.909 Unspecified asthma, uncomplicated; M17.11 Unilateral primary osteoarthritis, right knee

== ENCOUNTER → 2024-08-05 10:44 | Outpatient (BNVA) | payer OTHER, SELFPAY | PROVIDERS: PCP Internal Medicine; Visit Provider Internal Medicine | DX: K21.9 Gastro-esophageal reflux disease without esophagitis (principal); M06.9 Rheumatoid arthritis, unspecified; J45.909 Unspecified asthma, uncomplicated; M17.11 Unilateral primary osteoarthritis, right knee; Z80.3 Family history of malignant neoplasm of breast; Z90.3 Acquired absence of stomach [part of] | CPT/HCPCS: 99212 ==

== ENCOUNTER 2024-09-08 09:22 | Outpatient (AMB) | payer OTHER, SELFPAY ==
--- NOTE | 2024-09-08 09:24 | A.OFFVIS_ITS ---
Vital Signs 09/08/24 09:34 Height 5 ft 2 in Weight 145 lb BMI 26.5 BP 102/72 Intake Visit Reasons: [employer] annual exam/30 mins Allergies leflunomide Allergy (Unknown, Verified 09/08/24 09:34) abd pain oseltamivir Adverse Reaction (Unknown, Verified 09/08/24 09:34) dizziness, headaches, ringing in the ears ?IVP dye Allergy (Unknown, Uncoded 08/05/24 11:00) headache, nausea unknown arthrits medication Allergy (Unknown, Uncoded 08/05/24 11:00) stomach upset Contrast Allergy PreMed Pack Adverse Reaction (Unknown, Uncoded 08/05/24 11:00) stomach upset HPI Comments Details: She is a postmenopausal woman 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 She is doing well with cigarette filter inspector concerns: Currently sexually active, feel sharp pain with deep penetration. Denies any vaginal dryness, irritation or odors. Attempting to eat a healthy diet with calcium and vitamin D and stays active with exercises at the gym. Last pap smear; 2021. Last mammogram; 2023. Colonoscopy is UTD. Followed by Dr. Sabillon for breast care. [facility] Medical History (Updated 09/08/24 @ 12:01 by Katina Gandhi CNM) Vaginal atrophy Lumbar degenerative disc disease Vitamin D deficiency Allergic rhinitis Hypothyroid Asthma Cervical cancer screening Rheumatoid arthritis Breast cancer screening, high risk patient Surgical History History of total right knee replacement S/P panniculectomy H/O tubal ligation History of cholecystectomy History of sleeve gastrectomy History of breast biopsy History of gastric surgery (12/2015) History of removal of laparoscopic gastric banding device (10/03/15) Hx of laparoscopic gastric banding (01/2010) Family History Father Family history of prostate cancer, Onset Age: 70 Mother History of breast cancer, Onset Age: 55 Sister History of breast cancer, Onset Age: 47 Maternal Grandmother History of breast cancer, Onset Age: 58 Colon cancer Maternal Aunt History of breast cancer, Onset Age: 37 Maternal Aunt History of breast cancer, Onset Age: 40 Sister Bone cancer Social History Housing: Apartment Alcohol intake: former Comment: last time years ago Patient Tobacco Use Status: Never used Tobacco Tobacco use type: Cigarette e-Cigarette/Vaping Use: Never Used Second Hand Smoke Exposure: No service: No Current occupational status: unemployed Cognitive needs: No Hearing needs: No Vision needs: No Female Reproductive History Menstrual Age of Menarche: 8 Total pregnancies: 3 Full term: 3 Date of last pap smear: 07/18/22 (negative pap smear, negative hpv) Date of Mammogram: 05/08/24 (bi rad 1) Review of Systems Const All systems reviewed & are unremarkable except as noted in HPI and below Reports as per HPI Eyes Reports no additional complaints ENT Reports no additional complaints Card Reports no additional complaints Resp Reports no additional complaints GI Reports as per HPI and Reports no additional complaints Reports as per HPI Musc Reports no additional complaints Skin/Breast Reports as per HPI Neuro Reports no additional complaints Psych Reports no additional complaints Endo Reports no additional complaints Raphael/Lymph Reports no additional complaints Aller/Immun Reports no additional complaints Physical Exam Vital Signs: Last Vital Signs BP 102/72 09/08/24 09:34 BMI result Body Mass Index 26.5 Const General: cooperative, healthy appearing, no acute distress, well developed and alert Orientation/consciousness: patient oriented x3 HEENT Head: Yes normal to inspection Eyes General: appearance normal, both eyes and all related structures Neck Neck: Yes normal visual inspection Thyroid: Thyroid normal Chest Chest palpation & inspection: normal inspection of the chest and other (no puckering, dimpling, peau de orange, retraction, discharge, masses) Breast/axilla inspection: normal inspection of the breasts Breast/axilla palpation: normal palpation of the breasts Resp Effort & Inspection: normal respiratory effort GI Inspection: Yes normal to inspection Palpation (GI): Soft to palpation Rectal Exam - Female: deferred General: Yes bladder normal to palpation External Female Exam: normal external appearance and normal appearance of the urethra Speculum Exam - Vagina: normal appearance of the vagina, normal palpation, normal vaginal discharge and vagina atrophic Speculum Exam - Cervix: normal appearance of the cervix and normal palpation Bimanual exam- vagina & uterus: normal bimanual exam, normal palpation, uterine size normal, bladder normal to palpation, normal palpation and non-tender Bimanual Exam- Adnexa, other: no masses Skin General skin exam: no rashes or lesions noted Rashes: no rashes Neuro General: patient oriented x3 Cognition (Neuro): normal cognition Extrem General: Yes normal to inspection Psych Attitude: cooperative Thought process: Normal thought process present Assessment & Plan Assessment & Plan (1) Well woman exam with routine gynecological exam: Code(s): Z01.419 - Encounter for gynecological examination (general) (routine) without abnormal findings Category: Medical Plan: Discussed: Current recommendations for pap smears per ASCCP guidelines. Breast awareness, periodic self breast exams and yearly mammogram. Maintain a healthy lifestyle, well balanced diet including Calcium 1,200 mg and Vitamin D 600 IU daily, and routine exercise. Contact the office with any postmenopausal bleeding. Patient verbalizes understanding and agrees to the plan of care. She was given opportunity to ask questions and all questions were answered to the best of my ability. RTO in 1 year for annual cigarette filter inspector exam. Total time I personally spent on visit and management today: ?10 minutes. Time spent included review of pertinent office notes in the electronic health record; review of laboratory and imaging results; review of personal family medical history; discussing diagnosis and plan of care with the patient; documenting the encounter in the EMR. This note is constructed using voice recognition software. While every effort has been made to ensure accuracy, sales planner errors may have been included. (2) Vaginal atrophy: Code(s): N95.2 - Postmenopausal atrophic vaginitis Category: Medical Plan: Discussed: Atrophic changes with aging, and using Replens moisturizer per use o f manufacture's recommendation to help with painful intimacy, information provided and use of visual aid with a website. (3) Dyspareunia in female: Code(s): N94.10 - Unspecified dyspareunia Plan: GC chlamydia and BV panel obtained, await results for plan of care. Normal pelvic exam today no pain noted, offered a pelvic ultrasound patient declines. Plan Orders: Orders CT NG by PCR Today Z20.2 - Contact with and (suspected) exposure to infections with a predominantly sexual mode of transmission Bacterial Vaginosis Panel Today Z20.2 - Contact with and (suspected) exposure to infections with a predominantly sexual mode of transmission Coding Level of Care Code Est Pt Level 2 (38890) Est Pt Prev Care 40-64y(16848) Diagnoses Well woman exam with routine gynecological exam Z01.419 Vaginal atrophy N95.2 Dyspareunia in female N94.10
[2024-09-08 09:34] VITALS: BP 102/72; BMI 26.5
--- OUTSIDE RECORDS SUMMARY | 2024-09-08 10:09 | XMS_ITS | Data Portability ---
Author Organization [place] [facility], [facility] Address [address] [place] [address] Care Team Providers Care Bi Solutions Architect Name Role Phone DEVON TOYABECCA Primary Care Provider [phone] Assessment Encounter Date Assessment Date Assessment LastModified [...] of infection. Right knee range of motion 10-95? ? ?. There is no significant sub-patellar crepitus. There is expected postoperative swelling but no significant effusion. The knee is stable to varus and valgus loading at 0 and 90? ? ? without evidence of significant instability. IMAGING: Previously obtained X-rays reviewed in the office today on [facility] PACS: Weightbearing AP of both knees, lateral [...] I am Guarded about her long-term prognosis. [facility] speech recognition calibration tester software was used to create portions of this document. An attempt at proofreading has been made to minimize errors. Please call for corrections. [email or web address] Not available 01/15/2024 15:44:18 04/02/2024 04/02/2024 PROBLEM: [...] of infection. Right knee range of motion 5-100? ? ?. There is no significant sub-patellar crepitus. There is expected postoperative swelling but no significant effusion. The knee is stable to varus and valgus loading at 0 and 90? ? ? without evidence of significant instability. IMAGING: X-rays ordered, obtained and reviewed in the office today on [facility]: Weightbearing AP of both knees, lateral [...] all of her and her family's questions. [facility] speech recognition calibration tester software was used to create portions of [...] or to follow up sooner if needed. [email or web address] Not available 07/02/2024 12:20:57 Plan of Treatment Reminders Order Date Submit Date Provider Last Modified By Organization Details Last Modified Time Details Appointments RECHECK 15 2024 10:45A M Jesse Mccormack PA-C Not available Not available Not available Lab ESR (erythroc yte sedimenta tion rate), blood 2023 024 IRISH [facility], [address], [address], [place], [address], 01/15/2024 21:13:25 C reactive protein, QN, serum or plasma 2023 024 MENLO [facility], [address], [address], [place], [address], 01/15/2024 21:13:26 CBC w/ auto diff 2023 024 MENLO [facility], [address], [address], [place], [address], 01/15/2024 21:13:24 Referral None recorded. Procedures None recorded. Surgeries None recorded. Imaging XR, knee, 3 view - 205 rtkr pain 2023 024 [email or web address] [facility], [address], [address], [place], [address], 04/23/2024 10:40:12 Medication Orders diclofena c 1 % topical gel 2023 024 [email or web address] [facility], [facility] [place], [address], 07/03/2024 07:52:05 tizanidin e 4 mg tablet 2023 024 [email or web address] [facility], [address] [place], [address], 04/02/2024 16:08:21 Patient TargetsNo targets recorded. Patient InstructionsNo instructions recorded. Reason for Referral None Reported. Results Created Date Observation Date Name Description Value Unit Range Abnormal Flag Note LastModifiedBy Organization Detail LastModifiedTime 01/15/20 24 01/15/2024 CBC WITH DIFFE RENTI AL/PL ATELE T WBC 7.0 K/mm3 4.0-11 .0 Not Available [facility] [address] [facility], [place], [address], 01/15/2024 21:13:24 01/15/20 24 01/15/2024 CBC WITH DIFFE RENTI AL/PL ATELE T RBC 4.47 M/mm3 4.20-5 .40 Not Available [address], [address], 01/15/2024 21:13:24 01/15/20 24 01/15/2024 CBC WITH DIFFE RENTI AL/PL ATELE T hemoglobin 12.5 gm/dL 11.7-1 5.5 Not Available [address], [address], 01/15/2024 21:13:24 01/15/2001/15/2024 CBC WITH DIFFE RENTI AL/PL ATELE T hematocrit 39.4 % 35.7-4 5.8 Not Available [address], [address], 01/15/2024 21:13:24 01/15/20 24 01/15/2024 CBC WITH DIFFE RENTI AL/PL ATELE T MCV 88.1 fL 80.0-1 00.0 Not Available [address], [address], 01/15/2024 21:13:24 01/15/20 24 01/15/2024 CBC WITH DIFFE RENTI AL/PL ATELE T MCH 28.0 pg 27.0-3 4.0 Not Available [address], [address], 01/15/2024 21:13:24 01/15/20 24 01/15/2024 CBC WITH DIFFE RENTI AL/PL ATELE T MCHC 31.7 g/dL 33.0-3 7.0 below low normal Not Available [address], [address], 01/15/2024 21:13:24 01/15/20 24 01/15/2024 CBC WITH DIFFE RENTI AL/PL ATELE T RDW 46.3 fL <47.0 Not Available [address], [address], 01/15/2024 21:13:24 01/15/20 24 01/15/2024 CBC WITH DIFFE RENTI AL/PL ATELE T platelets 314 K/mm3 150-46 0 Not Available [address], [address], 01/15/2024 21:13:24 01/15/20 24 01/15/2024 CBC WITH DIFFE RENTI AL/PL ATELE T neutrophils 42.3 % 44-76 below low normal Not Available [address], [address], 01/15/2024 21:13:24 01/15/20 24 01/15/2024 CBC WITH DIFFE RENTI AL/PL ATELE T lymphs 48.9 % 15-43 above high normal Not Available [address], [address], 01/15/2024 21:13:24 01/15/20 24 01/15/2024 CBC WITH DIFFE RENTI AL/PL ATELE T monocytes 7.0 % 4.5-10 .5 Not Available [address], [address], 01/15/2024 21:13:24 01/15/2001/15/2024 CBC WITH DIFFE RENTI AL/PL ATELE T eos 0.9 % 0-6 Not Available [address], [address], 01/15/2024 21:13:24 01/15/2001/15/2024 CBC WITH DIFFE RENTI AL/PL ATELE T basos 0.6 % 0-2 Not Available [address], [address], 01/15/2024 21:13:24 01/15/20 24 01/15/2024 CBC WITH DIFFE RENTI AL/PL ATELE T neutrophils (absolute) 3.0 K/mm3 1.3-7. 0 Not Available [address], [address], 01/15/2024 21:13:24 01/15/20 24 01/15/2024 CBC WITH DIFFE RENTI AL/PL ATELE T lymphs (absolute) 3.4 K/mm3 0.8-3. 1 above high normal Not Available [address], [address], 01/15/2024 21:13:24 01/15/20 24 01/15/2024 CBC WITH DIFFE RENTI AL/PL ATELE T monocytes(ab solute) 0.5 K/mm3 0.4-0. 9 Not Available [address], [address], 01/15/2024 21:13:24 01/15/20 24 01/15/2024 CBC WITH DIFFE RENTI AL/PL ATELE T eos (absolute) 0.1 K/mm3 0.0-0. 4 Not Available [address], [address], 01/15/2024 21:13:24 01/15/20 24 01/15/2024 CBC WITH DIFFE RENTI AL/PL ATELE T baso (absolute) 0.0 K/mm3 0.0-0. 1 Not Available [address], [address], 01/15/2024 21:13:24 01/15/20 24 01/15/2024 CBC WITH DIFFE RENTI AL/PL ATELE T immature granulocytes 0.3 % Not Available [address], [address], 01/15/2024 21:13:24 01/15/20 24 01/15/2024 CBC WITH DIFFE RENTI AL/PL ATELE T immature grans (abs) 0.0 K/mm3 Not Available [address], [address], 01/15/2024 21:13:24 01/15/20 24 01/15/2024 CBC WITH DIFFE RENTI AL/PL ATELE T NRBC 0.0 #/100 _WBC' s Not Available [address], [address], 01/15/2024 21:13:24 01/15/20 24 01/15/2024 CBC WITH DIFFE RENTI AL/PL ATELE T hematology comments: Commen t AUTOM ATED DIFFE RENTI AL MPV 9.5 FL 9.4-1 2.4 N ABS. NRBC 0.0 K/MM3 N Not Available [address], [address], 01/15/2024 21:13:24 01/15/20 24 01/15/2024 SEDIM ENTAT ION RATE- WESTE RGREN sedimentatio n rate-westerg paola 4 mm/HR 0-20 Not Available [address], [address], 01/15/2024 21:13:25 01/15/20 24 01/15/2024 C-TEZ CTIVE PROTE IN, QUANT C-reactive protein, quant <0.3 mg/dL 0-0.5 Not Available [address], [address], 01/15/2024 21:13:26 03/20/20 24 09/13/2023 imagi ng/di agnos tic resul t No observ ation record ed. [email or web address] Not Available 02/21 04:38:44 04/02/20 24 04/02/2024 XR, knee, 3 view http:/ [email or web address] ?Encry pted=s hAaTro YD8dLq bEUv6g %2BXZw aYqtaq 0bqfl% 2Fg9IQ a4ajBk vP9nXo QUaueC m3YtLR FvZlgJ JJ8mAn HZtai3 8v9696 AC0Kqa n6DUKe hKiQtr MwF INTERFACE [facility] [address], [place], [address], 04/02/2024 15:56:44 04/02/20 24 04/02/2024 XR, knee, 3 view [email or web address]:/ [email or web address] ?Encry pted=s hAaTro YD8dLq bEUv6g %2BXZw aYqtaq 0bqfl% 2Fg9IQ a4ajBk vP9nXo QUaueC m3YtLR FvZlgJ JJ8mAn HZtai3 9q6879 AC0Kqa n6DUKe hKiQtr MwF INTERFACE [employer] [facility] [address] [facility] [address], [place], [address], 04/02/2024 15:56:47 Result Notes None recorded. Problems Name Problem SNOMED Code Status Onset Date Resolution Date Notes Provider Name and Address Organization Details Recorded Time No complaints 430073307 Active Status : 'A'; Not Available [facility] 4 09:14:26 Pain of right knee joint 1067788149368 00 Active 2023 Víctor Gupta MD [address], [place], [address] , [facility] 4 12:05:08 Problem Notes None recorded. Procedures Surgical History Date Name Laterality Status Provider Name and Address Organization Details Recorded Time 4 59329 Therapeutic Exercise (1:1) completed Gabriele Jiménez DPT [address], [place], [address], [facility] 11/11/2023 16:05:55 4 62979: Manual therapy completed Gabriele Jiménez DPT [address], [place], [address], [facility] 11/11/2023 16:05:59 4 64753 Therapeutic Exercise (1:1) completed Gabriele Jiménez, DPT [address], [place], [address], [facility] 11/07/2023 14:56:02 4 42205: Manual therapy completed Gabriele Jiménez, DPT [address], [place], [address], [facility] 11/07/2023 14:56:02 4 78526 Therapeutic Exercise (1:1) completed Hailey Dosdon, CHANNEL PROCESS SUPERVISOR [address], [place], [address], [facility] 10/28/2023 13:01:34 4 15255: Manual therapy completed Hailey Dodson, CHANNEL PROCESS SUPERVISOR [address], [place], [address], [facility] 10/28/2023 13:01:34 4 44544 Therapeutic Exercise (1:1) completed Hailey Dodson, CHANNEL PROCESS SUPERVISOR [address], [place], [address], [facility] 10/25/2023 14:44:53 4 65528: Manual therapy completed Hailey Dodson, CHANNEL PROCESS SUPERVISOR [address], [place], [address], [facility] 10/25/2023 14:44:53 4 85909 Therapeutic Exercise (1:1) completed Hailey Alcalae, CHANNEL PROCESS SUPERVISOR [address], [place], [address], [facility] 10/23/2023 16:12:47 4 71870: Manual therapy completed Hailey Alcalae, CHANNEL PROCESS SUPERVISOR [address], [place], [address], [facility] 10/23/2023 16:12:47 4 00143 Therapeutic Exercise (1:1) completed Damieana Fudge, CHANNEL PROCESS SUPERVISOR [address], [place], [address], [facility] [place] [facility] 10/23/2023 12:37:18 4 19919: Manual therapy completed Damieana Fudge, CHANNEL PROCESS SUPERVISOR [address], [place], [address], [facility] 10/23/2023 12:37:18 4 71636 Therapeutic Exercise (1:1) completed Damieana Fudge, CHANNEL PROCESS SUPERVISOR [address], [place], [address], [facility] 10/17/2023 11:40:26 4 74781: Manual therapy completed Hailey Alcalae, CHANNEL PROCESS SUPERVISOR [address], [place], [address], [facility] 10/17/2023 11:40:26 4 31927 Therapeutic Exercise (1:1) completed Hailey Fudge, CHANNEL PROCESS SUPERVISOR [address], [place], [address], [facility] 10/17/2023 10:22:56 4 56730: Manual therapy completed Hailey Alcalae, CHANNEL PROCESS SUPERVISOR [address], [place], [address], [facility] 10/17/2023 10:22:56 4 84094 Therapeutic Exercise (1:1) completed Hailey Schmittdge, CHANNEL PROCESS SUPERVISOR [address], [place], [address], [facility] 10/14/2023 08:52:25 4 45202: Manual therapy completed Hailey Schmittdge, CHANNEL PROCESS SUPERVISOR [address], [place], [address], [facility] 10/14/2023 08:52:25 4 68142 Therapeutic Exercise (1:1) completed Damieana Fudge, CHANNEL PROCESS SUPERVISOR [address], [place], [address], [facility] 10/13/2023 16:19:03 4 39956: Manual therapy completed Hailey Dodson, CHANNEL PROCESS SUPERVISOR [address], [place], [address], [facility] 10/11/2023 08:45:24 4 36089 Therapeutic Exercise (1:1) completed Hailey Dodson, CHANNEL PROCESS SUPERVISOR [address], [place], [address], [facility] 10/08/2023 23:54:11 4 67930: Manual therapy completed Hailey Dodson, CHANNEL PROCESS SUPERVISOR [address], [place], [address], [facility] 10/08/2023 23:54:11 4 56961 Therapeutic Exercise (1:1) completed Hailey Dodson, CHANNEL PROCESS SUPERVISOR [address], [place], [address], [facility] 10/04/2023 08:36:40 4 58803: Manual therapy completed Hailey Dodson, CHANNEL PROCESS SUPERVISOR [address], [place], [address], [facility] 10/04/2023 08:36:40 4 31093 Therapeutic Exercise (1:1) completed KATHY ErvinT [address], [place], [address], [facility] 10/02/2023 14:00:10 4 37715: Manual therapy completed KATHY ErvinT [address], [place], [address], [facility] 10/02/2023 14:00:13 Imaging Results Imaging Date Name Status LastModified by Organiz ation Details LastModified Time 09/13/2023 imaging/diag nostic result completed [email or web address] Information not available 03/20/2024 04:38:44 04/02/2024 XR, knee, 3 view completed INTERFACE [facility] [address], [place], [address], 04/02/2024 15:56:44 04/02/2024 XR, knee, 3 view completed INTERFACE [facility] [address], [place], [address], 04/02/2024 15:56:47 Procedure Notes None recorded. Medical [...] Not Available Not Available No t Available Vitamin D3 50 mcg (2,000 unit) capsule TAKE ONE CAPSULE BY MOUTH EVERY DAY active Not Available Not Available No t Available Asmanex HFA 100 mcg/actuati on aerosol inhaler INHALE TWO PUFFS BY MOUTH TWICE A DAY active Not Available Not Available No t Available Arthritis Pain (diclofenac ) 1 % topical gel APPLY 2 GRAMS TO THE AFFECTED AREA(S) BY TOPICAL ROUTE 4 TIMES PER DAY active Not Available Not Available No t Available Vitals Date Recorded Body height Body mass index (BMI) Body weight Provider Name and Address Organization Details Last Updated DateTime 01/15/2024 157.48 cm 27.3 kg/m2 12455.26 g TYREL CAMERON [place] [facility] 01/15/2024 15:14:26 Date Recorded Body height Provider Name an d Address Organization Details Last Updated DateTime 04/02/2024 157.48 cm ORTEGA HIGHTOWER [facility] 04/02/2024 15:50:25 Date Recorded Body height Body mass index (BMI) Body weight Provider Name and Address Organization Details Last Updated DateTime 07/02/2024 157.48 cm 27.3 kg/m2 27979.26 g DANIELLE BURROUGHS [facility] 07/02/2024 10:29:38 Social History Question Answer Notes LastModified by Organizat ion Details LastModified Time Tobacco Smoking Status Never Smoker DANIELLE VAZQUEZEUFiorella null, [facility] 10/14/2023 14:12:53 What Is Your Level Of [...] Thyroid Problems N COPD N Pacemaker N Kidney/Bladder Problems N Anemia N Vascular Disease N Gastrointestinal Disease N Heart Attack ([place]) N Diabetes N Autoimmune disease N Bleeding [...] Diagnosis/Indication Diagnosis SNOMED-CT Code Diagnosis ICD10 Code Diagnosis Note [id number] [facility] [address] [place] [address] 10/02/2023 11:53:56 10/02/2023 14:41:32 Aftercare 817723928 Z47.1 History of right total knee replacement 3728941201 738421 Z96.817 [id number] Paulie Florek, PT [facility] [address] [place] [address] 10/04/2023 09:36:29 10/04/2023 16:10:14 Aftercare 718945566 Z47.1 History of right total knee replacement 3405613084 963193 Z96.863 [id number] Paulie Florek, PT [facility] [address] [place] [address] 10/08/2023 15:25:35 10/08/2023 16:25:00 Aftercare 400205014 Z47.1 History of right total knee replacement 5813660195 893518 Z96.756 [id number] Paulie Florek, PT [facility] [address] [place] [address] 10/11/2023 13:09:49 10/11/2023 14:25:54 Aftercare 095766396 Z47.1 History of right total knee replacement 5489023844 226185 Z96.278 [id number] Gabriele Jiménez , DPT [facility] [address] [place] [address] 10/14/2023 14:49:05 10/14/2023 15:59:49 Aftercare 818432215 Z47.1 History of right total knee replacement 9384169045 925383 Z96.523 [id number] Jesse Mccormack PA-C [facility] [address] [place] [address] 10/14/2023 14:02:59 10/14/2023 14:46:40 History of right total knee replacement 2013159006 797249 Z96.809 [id number] Paulie Florek, PT [facility] [address] [place] [address] 10/16/2023 13:20:42 10/16/2023 14:52:13 Aftercare 691231433 Z47.1 History of right total knee replacement 4527481526 151708 Z96.042 [id number] Paulie Florek, PT [facility] [address] [place] [address] 10/17/2023 10:18:18 10/17/2023 11:15:25 Aftercare 403226474 Z47.1 History of right total knee replacement 2398301651 916836 Z96.846 [id number] Pauliekallie Bledsoe, PT [facility] [address] [place] [address] 10/22/2023 11:50:22 10/22/2023 14:10:51 Aftercare 939858742 Z47.1 History of right total knee replacement 3388523180 674575 Z96.689 [id number] Pauliekallie Bledsoe, PT [facility] [address] [place] [address] 10/23/2023 12:43:05 10/23/2023 13:37:48 Aftercare 351122056 Z47.1 History of right total knee replacement 8491863163 836480 Z96.394 [id number] Paulie Bledsoe, PT [facility] [address] [place] [address] 10/25/2023 13:19:59 10/25/2023 14:13:00 Aftercare 984329953 Z47.1 History of right total knee replacement 4579888840 218842 Z96.542 [id number] Paulie Bledsoe, PT [facility] [address] [place] [address] 10/28/2023 12:51:30 10/28/2023 13:40:37 Aftercare 029833283 Z47.1 History of right total knee replacement 8152184726 695500 Z96.895 [id number] Jesse Mccormack PA-C [facility] [address] [place] [address] 10/31/2023 15:00:29 11/20/2023 16:09:35 History of right total knee replacement 8213326504 517277 Z96.140 [id number] Víctor Gupta MD [facility] [address] [place] [address] 11/06/2023 11:21:42 11/27/2023 11:59:28 History of right total knee replacement 1090519559 928458 Z96.651 Pain of ri ght knee joint 2187008734 77882 M25.071 [id number] Gabriele Jiménez , DPT [facility] [address] [place] [address] 11/07/2023 12:53:45 11/07/2023 13:56:37 Aftercare 348160050 Z47.1 History of right total knee replacement 7931864563 764257 Z96.564 [id number] Gabriele Jiménez , DPT [facility] [address] [place] [address] 11/11/2023 08:59:58 11/11/2023 13:42:31 Aftercare 547067838 Z47.1 History of right total knee replacement 7985148510 149526 Z96.120 [id number] Gabriele Jiménez DPT [facility] [address] [place] [address] 11/12/2023 15:18:29 11/12/2023 16:07:26 Aftercare 202104710 Z47.1 History of right total knee replacement 7986996631 545751 Z96.454 [id number] Paulie Bledsoe, PT [facility] [address] [place] [address] 11/13/2023 10:20:27 11/13/2023 11:07:10 Aftercare 942568107 Z47.1 History of right total knee replacement 8262472639 942129 Z96.332 [id number] Gabriele Jiménez DPT [facility] [address] [place] [address] 11/14/2023 12:54:14 11/14/2023 13:54:27 Aftercare 942322184 Z47.1 History of right total knee replacement 2085889287 489324 Z96.933 [id number] Paulie Bledsoe, PT [facility] [address] [place] [address] 11/18/2023 16:00:59 11/18/2023 16:35:22 Aftercare 475339890 Z47.1 History of right total knee replacement 8065412185 219155 Z96.756 [id number] Paulie Rakan, PT [facility] [address] [place] [address] 11/19/2023 11:57:00 11/19/2023 13:33:26 Aftercare 875185096 Z47.1 History of right total knee replacement 2973264690 865448 Z96.064 [id number] Gabriele Jiménez , DPT [facility] [address] [place] [address] 11/20/2023 12:54:10 11/20/2023 15:51:05 Aftercare 681666321 Z47.1 History of right total knee replacement 6408146722 275015 Z96.675 [id number] Paulie Rakan, PT [facility] [address] [place] [address] 11/21/2023 15:20:48 11/21/2023 17:28:01 Aftercare 214318885 Z47.1 History of right total knee replacement 1596038434 878504 Z96.887 [id number] Gabriele Jiménez , DPT [facility] [address] [place] [address] 11/22/2023 10:29:53 11/22/2023 11:24:15 Aftercare 115688840 Z47.1 History of right total knee replacement 5061303013 684549 Z96.769 [id number] Gabriele Jiménez , DPT [facility] [address] [place] [address] 11/25/2023 13:56:50 11/25/2023 14:30:35 Aftercare 466789589 Z47.1 History of right total knee replacement 2793625527 014912 Z96.770 [id number] Mary Jane Apple PA-C [facility] [address] [facility] [address] [place] [address] 11/25/2023 14:39:49 11/25/2023 15:36:05 Postoperative pain 167652195 G89.18 [id number] Víctor Gupta MD [facility] [address] [place] [address] 12/04/2023 11:03:12 12/26/2023 10:32:34 History of right total knee replacement 5820823059 385388 Z96.647 [id number] Paulie Bledsoe, PT [facility] [address] [place] [address] 12/03/2023 10:28:02 12/03/2023 11:03:57 Aftercare [id number] Z47.1 History of right total knee replacement 4801854367 950250 Z96.426 [id number] Gabriele Jiménez , DPT [facility] [address] [place] [address] 12/11/2023 11:00:34 12/11/2023 11:51:33 Aftercare 523609089 Z47.1 History of right total knee replacement 5802250935 775879 Z96.006 [id number] Paulie Bledsoe, PT [facility] [address] [place] [address] 12/13/2023 08:48:51 12/13/2023 10:04:52 Aftercare 574271303 Z47.1 History of right total knee replacement 5142357906 611389 Z96.307 [id number] Paulie Bledsoe, PT [facility] [address] [place] [address] 12/18/2023 11:10:22 12/18/2023 11:33:57 Aftercare 013590343 Z47.1 History of right total knee replacement 0631636057 430767 Z96.407 [id number] Paulie Bledsoe, PT [facility] [address] [place] [address] 12/30/2023 09:31:33 12/30/2023 10:14:23 Aftercare [id number] Z47.1 History of right total knee replacement 8604673510 236235 Z96.770 [id number] Víctor Gupta MD [facility] [address] [place] [address] 01/15/2024 15:12:09 02/04/2024 16:11:42 History of right total knee replacement 9344795469 485275 Z96.630 [id number] MD Parker Taylor [address] [place] [address] 04/02/2024 15:46:22 04/23/2024 10:40:12 History of right total knee replacement 5618976175 043775 Z96.535 [id number] ESTHER Calvillo [address] [place] [address] 07/02/2024 10:01:50 07/28/2024 13:45:02 History of right total knee replacement 3157602300 103537 Z96.651 Health Concerns Section Related Observation LastModified by Organization Detai ls LastModified Time None Recorded Concern Status LastModified by Organization Details LastModified Time None Recorded Advance Directives Directive None Recorded Payers Encounter Date Sequence Insurance Name Policy Number Policy Fowler Covered Member ID Fowler Member ID Guarantor Name 12/18/2023 1 [facility] PLAN (MEDICAID HMO) [place] Brandi A Damon [id number] Brandi Damon 12/30/2023 1 [facility] PLAN (MEDICAID HMO) [place] Brandi A Damon Brandi Damon 01/15/2024 1 [facility] NET PLAN (MEDICAID HMO) [place] Brandi A Damon Brandi Damon 04/02/2024 1 [facility] NET PLAN (MEDICAID HMO) [place] Brandi A Damon Brandi Damon 07/02/2024 1 [facility] NET PLAN (MEDICAID HMO) [place] Brandi A Damon [id number] Brandi Damon Notes Date Note Type Note Provider Name and Address Organization Details Recorded Time 12/18/2023 text/html Pt reports 7/10 px coming in today. Continues to have pain and swelling. Hailey Dodson, [employer]PER[employer] [address], [place], [address], [facility] - [facility] 12/20/2023 08:38:01 12/30/2023 text/html Pt reports 7/10 px today. Very frustrated with her progression. Pt states she has been doing all exercises in HEP and ones recommended by MD. SHe continues to experience swelling and high pain levels often. Is unable to tolerate ice but elevates/ massages leg frequently. Hailey Dodson, CHANNEL PROC[employer] SUPERVISOR [address] [facility] [address], [place], [address], [facility] 01/02/2024 08:22:02 OBGyn Episode No OBEpisode recorded.
== END 2024-09-08 10:23 | disposition home or self-care (01) ==
PROVIDERS: PCP Internal Medicine; Visit Provider Advanced Practice Midwife
DX: Z01.419 Encounter for gynecological examination (general) (routine) without abnormal findings (principal); N95.2 Postmenopausal atrophic vaginitis; N94.10 Unspecified dyspareunia
CPT/HCPCS: 99212; 99396; 99459

== ENCOUNTER 2024-09-08 09:22 | Outpatient (REF) | payer OTHER, SELFPAY ==
[2024-09-08 16:26] LABS: Bacterial Vaginosis PCR NEGATIVE (Negative); Candida Group PCR NOT DETECTED (Not Detect); Candida glab krusei PCR NOT DETECTED (Not Detect); Trichomonas vaginalis PCR NOT DETECTED (Not Detect)
[2024-09-08 16:57] LABS: CT PCR NOT DETECTED (Not Detect.); NG PCR NOT DETECTED (Not Detect.)
== END 2024-09-08 09:23 | disposition home or self-care (01) ==
LOC: HO.LNP 09:22
PROVIDERS: PCP Internal Medicine; Visit Provider Advanced Practice Midwife
DX: Z01.419 Encounter for gynecological examination (general) (routine) without abnormal findings (principal); Z20.2 Contact with and (suspected) exposure to infections with a predominantly sexual mode of transmission; N95.2 Postmenopausal atrophic vaginitis; N94.10 Unspecified dyspareunia
CPT/HCPCS: 81515; 87491; 87591; 99212; 99396; 99459

== ENCOUNTER 2024-11-27 12:35 | Outpatient (AMB) | payer OTHER, SELFPAY ==
[2024-11-27 12:38] VITALS: BP 130/68; PULSE 78; O2SAT 98; BMI 26.5
--- NOTE | 2024-11-27 12:38 | A.OFFPC_ITS ---
Vital Signs 11/27/24 12:38 Height 5 ft 2 in Weight 145 lb BMI 26.5 BP 130/68 Blood Pressure Location Lt brachial Position Sitting Pulse 78 Pulse Source Pulse Oximeter Pulse Oximetry (%) 98 Oxygen Delivery Method Room Air Intake Visit Reasons: Annual Exam Allergies leflunomide Allergy (Unknown, Verified 11/27/24 12:38) abd pain oseltamivir Adverse Reaction (Unknown, Verified 11/27/24 12:38) dizziness, headaches, ringing in the ears ?IVP dye Allergy (Unknown, Uncoded 11/27/24 12:38) headache, nausea unknown arthrits medication Allergy (Unknown, Uncoded 11/27/24 12:38) stomach upset Contrast Allergy PreMed Pack Adverse Reaction (Unknown, Uncoded 11/27/24 12:38) stomach upset Medication List - Last Reconciled 11/27/24 by Lydia Stanley MD albuterol sulfate 90 mcg/actuation (Ventolin HFA) 2 puffs inhalation Q6H PRN budesonide 90 mcg/actuation (Pulmicort Flexhaler) 1 inh inhalation BID cholecalciferol (vitamin D3) 50 mcg PO DAILY 90 days folic acid 1 mg PO DAILY hydrocodone-acetaminophen 5-300 mg 1 tab PO BID PRN ibuprofen 800 mg PO .QD prn loratadine 10 mg PO DAILY methotrexate sodium 17.5 mg PO QWEEK tizanidine 4 mg PO .QD Tobacco use date assessed: 08/05/24 Dental Screening Dental Screen Date: 08/05/24 HPI Annual Exam HPI Details 02/2025 surgery 2 days ago sore throat, coughing, ear pain sob, diarrhea today , has sob and chest tight ness [facility] Medical History (Updated 11/27/24 @ 13:03 by Lydia Stanley MD) Vaginal atrophy Lumbar degenerative disc disease Vitamin D deficiency Allergic rhinitis Hypothyroid Asthma Cervical cancer screening Rheumatoid arthritis Breast cancer screening, high risk patient Surgical History History of total right knee replacement S/P panniculectomy H/O tubal ligation History of cholecystectomy History of sleeve gastrectomy History of breast biopsy History of gastric surgery (12/2015) History of removal of laparoscopic gastric banding device (10/03/15) Hx of laparoscopic gastric banding (01/2010) Family History Father Family history of prostate cancer, Onset Age: 70 Mother History of breast cancer, Onset Age: 55 Sister History of breast cancer, Onset Age: 47 Maternal Grandmother History of breast cancer, Onset Age: 58 Colon cancer Maternal Aunt History of breast cancer, Onset Age: 37 Maternal Aunt History of breast cancer, Onset Age: 40 Sister Bone cancer Social History Housing: Apartment Alcohol intake: former Comment: last time years ago Patient Tobacco Use Status: Never used Tobacco Tobacco use type: Cigarette e-Cigarette/Vaping Use: Never Used Second Hand Smoke Exposure: No service: No Current occupational status: unemployed Cognitive needs: No Hearing needs: No Vision needs: No Female Reproductive History Menstrual Age of Menarche: 8 Questionnaire PHQ-9 Over the last 2 weeks, how often have you been bothered by any of the following problems? 1. Little interest or pleasure in doing things: not at all 2. Feeling down, depressed, or hopeless: not at all 3. Trouble falling or staying asleep, or sleeping too much: not at all 4. Feeling tired or having little energy: not at all 5. Poor appetite or overeating: not at all 6. Feeling bad about yourself - or that you are a failure or have let yourself or your family down: not at all 7. Trouble concentrating on things, such as reading the newspaper or watching television: not at all 8. Moving or speaking so slowly that other people could have noticed. Or the opposite - being so fidgety or restless that you have been moving around a lot more than usual: not at all 9. Thoughts that you would be better off or of hurting yourself in some way: not at all Total score: 0 Depression Screening Interpretation: Negative Depression Screening Done: Yes 18683 - PHQ-9 Billing: Yes Source: Developed by Drs. Jean Pierre Mcdaniel, Mayra Kilgore, Jerrod Ruth and colleagues, with an educational christiano from [employer]. Thrive Questionnaire Date Thrive assessed: 08/05/24 I am a: Patient What is your living situation today?: I have a steady place to live Within the past 12 months, did the food you bought not last and you didn't have the money to get more?: Never true Within the past 12 months, did you worry whether your food would run out before you got money to buy more?: Never true Do you have trouble paying for medicines?: No Do you have trouble getting transportation to medical appointments?: No Do you have trouble paying your heating and electricity bill?: No Do you have trouble taking care of your child, family member or friend?: No Do you have trouble with day-to-day activities such as bathing, preparing meals, shopping, managing finances, etc.?: No Are you currently unemployed and looking for a job?: No Are you interested in more education?: No Please select the resources that you would like help with: None Currently or been in a relationship where the following occur: No concerns rep orted THRIVE Score: 0 AUDIT C Alcohol Use Questionnaire (AUDIT-C) 1. How often do you have a drink containing alcohol?: Never Total Score: 0 JASMIN-7 AMB Questionnaire JASMIN-7 Date JASMIN - 7 assessed: 08/05/24 Feeling nervous, anxious, or on edge: 0 = Not at all Not being able to stop or control worryin = Not at all Worrying too much about different things: 0 = Not at all Trouble relaxin = Not at all Being so restless that it is hard to sit still: 0 = Not at all Becoming easily annoyed or irritable: 0 = Not at all Feeling afraid as if something awful might happen: 0 = Not at all Total JASMIN-7 score (0-4 normal; 5-9 mild; 10-14 moderate; 15-21 severe): 0 Source: Developed by Drs. Jean Pierre Mcdaniel, Mayra Kilgore, Jerrod Ruth and colleagues, with an educational christiano from [employer]. JASMIN-7 Assessment Billing JASMIN-7 Assessment Tool: JASMIN-7 Assessment 15933 Review of Systems Const Denies poor appetite and Denies weakness Eyes Denies no additional complaints ENT Reports Normal hearing present, Denies dizziness, Denies nasal congestion, Denies tinnitus and Denies sore throat Card Denies chest pain, Denies syncope, Denies rapid heart rate and Denies dyspnea Resp Denies cough and Denies dyspnea GI Denies change in stool character, Reports constipation, Denies diarrhea, Denies nausea and Denies vomiting Denies urinary frequency, Denies difficulty voiding and Denies dysuria Neuro Reports Normal hearing present, Denies confusion, Denies dizziness, Denies syncope and Denies weakness Psych Denies confusion Physical exam (Primary Care) Vital Signs: Last Vital Signs Pulse 78 11/27/24 12:38 BP 130/68 11/27/24 12:38 Pulse Ox 98 11/27/24 12:38 Oxygen Delivery Method Room Air 11/27/24 12:38 BMI result Body Mass Index 26.5 Tobacco/Smoking Status: Tobacco use Status Tobacco use date assessed 08/05/24 11/27/24 12:44 Patient Tobacco Use Status Never used Tobacco 11/27/24 12:44 Tobacco use type Cigarette 11/27/24 12:44 e-Cigarette/Vaping Use Never Used 11/27/24 12:44 PHQ-9: PHQ-9 Score PHQ-9: Total score 0 11/27/24 12:56 Depression Screening Interpretation: Negative Thrive Assessment: Date of Thrive Assessment Date Thrive assessed 08/05/24 11/27/24 12:44 Currently or been in a relationship where the following occur: No concerns reported Const General: alert and awake; No confusion Orientation/consciousness: No confusion HENMT Head: Yes normocephalic Ears: external ears normal and TM's normal bilaterally Face and sinus: Yes normal facial exam Mouth: moist mucous membranes Throat: Yes tonsils normal Eyes Conjunctivae: conjunctivae normal Pupils: Equal, round and reactive pupils present and Pupil accommodation reflex normal Direct Ophthalmoscopy: normal light reflex Neck Neck: No lymphadenopathy Thyroid: Thyroid normal Chest Chest palpation & inspection: normal inspection of the chest Resp Effort & Inspection: normal respiratory effort and no audible wheezes Auscultation: clear to auscultation bilaterally, no crackles, no wheezes and lung sounds not diminished Cardio Rate: regular rate Rhythm: regular rhythm Peripheral pulses: radial pulses present and dorsalis pedis present GI Palpation (GI): no masses Auscultation: normal bowel sounds and normoactive bowel sounds Rectal Exam - Female: deferred Skin General skin exam: no rashes or lesions noted Rashes: no rashes Neuro General: deep tendon reflexes 2+ bilaterally and No confusion Cranial nerves: Yes Equal, round and reactive pupils present, Yes Midline tongue present, Yes Normal hearing present and Yes Ability to bilaterally elevate shoulders present Cognition (Neuro): normal cognition Gait exam (Neuro): Normal gait present Motor exam (neuro): 5/5 motor strength present throughout Deep tendon reflexes (DTR's): Right brachioradialis reflex intensity grade: 2+, Left brachioradialis reflex intensity grade: 2+, Right patellar reflex intensity grade: 2+ and Left patellar reflex intensity grade: 2+ Extrem General: No edema Coding Level of Care Code Est Pt Prev Care 40-64y(39463) Diagnoses Annual physical exam Z00.00 History of sleeve gastrectomy Z90.3 Asthma J45.909 Rheumatoid arthritis M06.9 Hypercholesterolemia E78.00 GERD (gastroesophageal reflux disease) K21.9 Osteoarthritis of right knee M17.11 Upper respiratory infection J06.9 Additional Codes JASMIN-7 Assessment Billing - JASMIN-7 Assessment Tool: JASMIN-7 Assessment 14375 ([id number]) PHQ-9 - 04429 - PHQ-9 Billing: Yes ([id number]) Assessment & Plan Assessment & Plan (1) Annual physical exam: Code(s): Z00.00 - Encounter for general adult medical examination without abnormal findings Category: Medical Plan: Patient is advised to eat healthy, keep well hydrated, keep active and have adequate sleep. (2) History of sleeve gastrectomy: Comment: December 2015 Code(s): Z90.3 - Acquired absence of stomach [part of] Category: Surgical Plan: Continue to follow-up with bariatric (3) Asthma: Code(s): J45.909 - Unspecified asthma, uncomplicated Category: Medical Plan: Patient has the albuterol inhaler as well as the Pulmicort (4) Rheumatoid arthritis: Code(s): M06.9 - Rheumatoid arthritis, unspecified Category: Medical Plan: Continue to follow-up with Rheumatology (5) Hypercholesterolemia: Code(s): E78.00 - Pure hypercholesterolemia, unspecified Category: Medical Plan: Avoid fried foods, chicken skin, eggs, butter margarine, pastries and meat. Be it pork or beef they have a lot of cholesterol LDL goal less than 130 and triglyceride of less than 150 (6) GERD (gastroesophageal reflux disease): Code(s): K21.9 - Gastro-esophageal reflux disease without esophagitis Category: Medical Plan: Avoid the foods that causes that usually spicy foods, tomato products, juices, coffee, soda and foods that your sensitive to. After eating do not lie down, allow 3-4 hours before in lie down. And keep the head of bed above 30 degrees to avoid the acid from going up. (7) Osteoarthritis of right knee: Comment: september 13, 2023 Dr. Carolyn FORRESTER, S/p knee replacement 08/2023 Code(s): M17.11 - Unilateral primary osteoarthritis, right knee Category: Medical Plan: Patient follows up with orthopedics and planned revision surgery (8) Upper respiratory infection: Code(s): J06.9 - Acute upper respiratory infection, unspecified Category: Medical Plan: increase oral fluids , rest Plan History of Present Illness The patient is a 59-year-old female presenting with upper respiratory symptoms. She reports feeling unwell with a sore throat and ear discomfort noted two days ago, concurrent with a persistent cough and sensations of throat congestion. She experiences reduced appetite and fatigue, with diarrhea developing on the day of observation. There were no preceding symptoms before this episode, and she has managed asthma symptoms with increased use of the Albuterol inhaler in the past two days. Her past medical history includes rheumatoid arthritis, treated with methotrexate, and osteoarthritis, with a knee replacement in August 2023 for which she takes analgesics as needed. She maintains control of hypercholesterolemia, including elevated HDL levels, and manages GERD symptoms without current medication. She denies the use of alcohol, tobacco, and recreational drugs, along with maintaining an updated mammogram schedule from April 2024. Prior blood work completed in March showed normal blood parameters except for the elevated HDL levels. Health Maintenance - Updated mammogram completed in April 2024. - Colonoscopy last performed in 2016, recommended interval not specified. - Recent normal blood work completed in March shows normal blood count, normal electrolytes, normal renal function, normal blood sugar, and elevated HDL. - Wellness plan includes continuing follow-up with bariatrics and rheumatology. Social History - Denies alcohol consumption, tobacco use, and recreational drug use. - Reports staying hydrated with the recommendation to maintain six to eight glasses of water daily. Review of Systems - Constitutional: Reports fatigue; Denies fever. - Ears/Nose/Throat: Reports throat pain and ear discomfort; Denies nasal congestion. - Respiratory: Reports cough; Denies shortness of breath, wheezing outside asthma outbreaks. - Gastrointestinal: Reports diarrhea today; Denies nausea, vomiting, abdominal pain. - Musculoskeletal: Reports baseline arthritis pain; Denies new joint swelling. - Neurological: Denies headaches, dizziness. - Genitourinary: Denies urinary symptoms. - Skin: Denies rashes. - Psychological: Denies recent stress. - Endocrine: Denies changes in appetite or weight apart from today. Physical Exam General: Cooperative, healthy appearing, comfortable, no acute distress and well developed Orientation: Patient oriented x3 Limitations: No limitations Head: Normal to inspection Ears: Hearing grossly normal bilaterally, no pain when pulled, clean Nose: Normal external nose present Face and sinus: Normal facial exam Eyes: Appearance normal, both eyes and all related structures, no recent eye exam Neck: Normal visual inspection and Yes full ROM Respiratory: Normal respiratory effort and able to speak in complete sentences. Clear to auscultation bilaterally, patient reports recent onset of cough and throat discomfort Cardiovascular: Regular rate and rhythm. Normal S1 and S2 GI: Normal to inspection. Soft to palpation and nontender Skin: No rashes or lesions noted Neuro: Patient oriented x3 Extremities: Normal to inspection, able to lift and move without pain Results - Lab work in March showed normal complete blood count, electrolytes, renal function, and blood sugar with elevated HDL. Plan The patient is managed for a probable viral upper respiratory infection with supportive care recommendations, emphasizing fluid hydration and resting. Asthma treatment with increased Albuterol use is advised. Anticipatory guidance is provided given the absence of signs consistent with a bacterial infection. The patient will continue current rheumatoid arthritis and hypercholesterolemia management strategies while also adhering to wellness screenings. Further follow-up is anticipated if symptoms persist or escalate. Patient was informed and verbally consented to the use of an ambient scribe for clinic note documentation during this visit. Discussion Notes During the consultation, I discussed the likely viral nature of the patient's upper respiratory symptoms, advising supportive measures like fluid intake and rest. Asthma management, involving increased use of Albuterol, was emphasized as necessary given the recent symptom exacerbation. The patient expressed understanding of the symptoms and possible future steps if recovery does not progress in the coming days. No new prescription medications were necessary. Continuation of current management strategies for rheumatoid arthritis and hypercholesterolemia was reviewed, and recommendations for maintaining wellness check-ups were reiterated. The patient was informed about the importance of h ydration and monitoring of symptoms, with precautions regarding potential escalation. Patient Instructions - Drink 6 to 8 glasses of water daily. - Rest and monitor symptoms for improvement. - Use Albuterol inhaler as needed for asthma symptoms. - Contact the office if symptoms worsen or do not improve in 2-3 days. - Continue current medications as prescribed. - Follow up with specialist appointments as scheduled. Orders: Orders Complete Blood Count Auto Diff Today K21.9 - Gastro-esophageal reflux disease without esophagitis Comprehensive Met. Panel Today K21.9 - Gastro-esophageal reflux disease without esophagitis UA CC w/rflx Micro + Cult Today K21.9 - Gastro-esophageal reflux disease without esophagitis, R30.0 - Dysuria Hemoglobin A1c Today K21.9 - Gastro-esophageal reflux disease without eso phagitis Vitamin B12 and Folate Today K21.9 - Gastro-esophageal reflux disease without esophagitis Free T4 (Free Thyroxine) Today K21.9 - Gastro-esophageal reflux disease without esophagitis Thyroid Stimulating Hormone Today K21.9 - Gastro-esophageal reflux disease without esophagitis Vitamin D 25-OH Total Today K21.9 - Gastro-esophageal reflux disease without esophagitis Lipid Panel Today E78.00 - Pure hypercholesterolemia, unspecified, K21.9 - Gastro-esophageal reflux disease without esophagitis
== END 2024-11-27 13:07 | disposition home or self-care (01) ==
LOC: HO.HMCH 12:36
PROVIDERS: PCP Internal Medicine; Visit Provider Internal Medicine
DX: Z00.00 Encounter for general adult medical examination without abnormal findings (principal); Z90.3 Acquired absence of stomach [part of]; J45.909 Unspecified asthma, uncomplicated; M06.9 Rheumatoid arthritis, unspecified; E78.00 Pure hypercholesterolemia, unspecified; K21.9 Gastro-esophageal reflux disease without esophagitis; M17.11 Unilateral primary osteoarthritis, right knee; J06.9 Acute upper respiratory infection, unspecified

== ENCOUNTER → 2024-11-27 12:35 | Outpatient (BNVA) | payer OTHER, SELFPAY | PROVIDERS: PCP Internal Medicine; Visit Provider Internal Medicine | DX: Z00.00 Encounter for general adult medical examination without abnormal findings (principal); R19.7 Diarrhea, unspecified; R07.89 Other chest pain; J45.909 Unspecified asthma, uncomplicated; M06.9 Rheumatoid arthritis, unspecified; E78.00 Pure hypercholesterolemia, unspecified; K21.9 Gastro-esophageal reflux disease without esophagitis; M17.11 Unilateral primary osteoarthritis, right knee; J06.9 Acute upper respiratory infection, unspecified; Z98.84 Bariatric surgery status | CPT/HCPCS: 96127; 99396 ==

== ENCOUNTER 2025-01-01 10:03 | Outpatient (AMB) | payer OTHER, SELFPAY ==
--- NOTE | 2025-01-01 10:05 | MHC.OFFVIS ---
Vital Signs 01/01/25 10:11 Height 5 ft 2 in Weight 147 lb BMI 26.9 BP 134/83 Blood Pressure Location Lt brachial Position Sitting Pulse 86 Intake Visit Reasons: 6 months breast exam Intake Note: Patient is seen in office for 6 month follow up visit, breast exam. 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 She has a strong family history for breast cancer is considered a high risk for breast cancer due to her mother, sisters, maternal grandmother, and maternal aunt having been diagnosed with breast cancer. Her maternal aunt from breast cancer. She denies any new members of her family with cancer. Her initial Alysha score lifetime risk of breast cancer was determined to be 30.9 % placing her at high risk for breast cancer. She was followed by Dr. Bundy and placed on the high risk protocol including yearly mammogram and MRI evaluations. She previously underwent a right breast needle core biopsy which was benign. She reports her menarche at the age of 10, she is , her 1st child was born when she was 17, she did not breast feed her children. She is postmenopausal and her last menstrual period was at the age of 48. She underwent genetic testing in 2019 which confirmed remaining lifetime risk of breast cancer of approximately 31%. No known genetic mutations of clinical significance were identified however 1 significant of unknown significance was identified. Her last mammogram dated 05/08/2024 revealed no mammographic specific evidence of malignancy (BI-RADS 2). Her last breast MRI performed on 08/23/2022 revealed no MR specific evidence of malignancy (BI-RADS 1 bilaterally). She continues to have problems with the knee and required repeat surgery in the right knee and therefore would like to avoid an MRI due to her knee pain. She is scheduled for a follow-up mammogram on 05/12/2025 [facility] Medical History Vaginal atrophy Lumbar degenerative disc disease Vitamin D deficiency Allergic rhinitis Hypothyroid Asthma Cervical cancer screening Rheumatoid arthritis Breast cancer screening, high risk patient Surgical History History of total right knee replacement S/P panniculectomy H/O tubal ligation History of cholecystectomy History of sleeve gastrectomy History of breast biopsy History of gastric surgery (12/2015) History of removal of laparoscopic gastric banding device (10/03/15) Hx of laparoscopic gastric banding (01/2010) Family History Father Family history of prostate cancer, Onset Age: 70 Mother History of breast cancer, Onset Age: 55 Sister History of breast cancer, Onset Age: 47 Maternal Grandmother History of breast cancer, Onset Age: 58 Colon cancer Maternal Aunt History of breast cancer, Onset Age: 37 Maternal Aunt History of breast cancer, Onset Age: 40 Sister Bone cancer Social History Housing: Apartment Alcohol intake: former Comment: last time years ago Patient Tobacco Use Status: Never used Tobacco Tobacco use type: Cigarette e-Cigarette/Vaping Use: Never Used Second Hand Smoke Exposure: No service: No Current occupational status: unemployed Cognitive needs: No Hearing needs: No Vision needs: No Female Reproductive History Menstrual Age of Menarche: 8 Review of Systems Const Denies chills, Denies fever(s), Denies headache(s) and Denies poor appetite ENT Denies dizziness and Denies headache(s) Card Denies chest pain, Denies rapid heart rate, Denies palpitations and Denies slow heart rate Resp Denies chest congestion, Denies cough, Denies pain on inspiration and Denies wheezing GI Denies abdominal pain, Denies bloating, Denies change in stool character, Denies constipation, Denies diarrhea, Denies nausea, Denies vomiting and Denies hematemesis Denies nipple discharge Musc Details: Rheumatoid arthritis Skin/Breast Denies breast swelling, Denies breast skin changes, Denies breast pain, Denies breast mass, Denies change in breast shape, Denies change in pigmentation, Denies nipple discharge, Denies erythema and Denies rash Neuro Denies dizziness and Denies headache(s) Psych Denies anxiety and Denies depression Endo Denies palpitations Raphael/Lymph Denies easy bleeding, Denies easy bruising and Denies lymphadenopathy Aller/Immun Denies wheezing Physical Exam Const General: cooperative, comfortable and well developed Nutritional Appearance: well nourished Orientation/consciousness: patient oriented x3 Eyes Sclerae: sclerae normal EOM: EOMs intact bilaterally Neck Neck: Yes normal visual inspection Lymphatic: no lymphadenopathy noted Chest Other: Left breast: No skin change, no nipple retraction, no nipple discharge, no palpable mass, no enlarged lymph nodes. Right breast: No skin change, no nipple retraction, no nipple discharge, no palpable mass, no enlarged lymph nodes Resp Effort & Inspection: normal respiratory effort, no cough, no respiratory distress and no stridor Cardio Jugular venous distension: no JVD GI Inspection: Yes normal to inspection Palpation (GI): Soft to palpation, nontender, no guarding and not rigid Skin General skin exam: dry skin Rashes: no rashes Neuro Other: Mobility Assessment: 1. 3 meter assessment time (seconds) 5 2. Gait observations: Normal balance and gait General: patient oriented x3 and no focal motor deficits Extrem General: Yes full ROM and Yes no clubbing, cyanosis or edema Psych Appearance: grossly normal Assessment & Plan Assessment & Plan (1) Breast cancer screening, high risk patient: Comment: Alysha model 34% lifetime risk Code(s): Z12.39 - Encounter for other screening for malignant neoplasm of breast Category: Medical (2) Family history of breast cancer: Comment: MRI breast July 2022 Code(s): Z80.3 - Family history of malignant neoplasm of breast Category: Medical Plan Patient returns for follow-up breast examination due to her high risk for breast cancer. She continues to do well and shows no evidence of breast disease at this time. Her most recent mammogram of 05/08/2024 revealed no suspicious findings (BI-RADS 1). MRI dated 09/13/2022 revealed no MR specific evidence of malignancy (BI-RADS 1 bilaterally). She is due for follow-up breast MRI however postponed this due to knee surgery which made positioning difficult. She should return in 6 months for routine breast examination. She is welcome to call sooner for any new concerns. Coding Level of Care Code Est Pt Level 3 (59832) Complex EM visit Add On G2211 Diagnoses Breast cancer screening, high risk patient Z12.39 Family history of breast cancer Z80.3
[2025-01-01 10:11] VITALS: BP 134/83; PULSE 86; BMI 26.9
--- OUTSIDE RECORDS SUMMARY | 2025-01-01 10:51 | XMS_ITS | Data Portability ---
Author Organization [place] - [facility], [facility] Address [address] [place] [address] Care Team Providers Care Web Page Developer Name Role Phone KARLI OSORIO Primary Care Provider [phone] Assessment Encounter Date Assessment Date Assessment LastModified by Organization Details LastModified Time 01/15/2024 01/15/2024 PROBLEM: Status post Right total [...] X-rays reviewed in the office today on [facility] PACS: Weightbearing AP of both [...] I am Guarded about her long-term prognosis. [employer] speech recognition resource analyst software was used to create portions of [...] and reviewed in the office today on [facility] PACS: Weightbearing AP of both [...] all of her and her family's questions. [employer] speech recognition resource analyst software was used to create portions of [...] over the anterior aspect of the knee. PMH/PSH/MEDS/ALL/F MH/SOC HX/ROS all reviewed in detail per my [...] but not limited to physical therapy, bracing, anti-inflammatorie s. Patient would like to try Voltaren gel [...] or to follow up sooner if needed. [email or web address] Not available 07/02/2024 12:20:57 10/02/2024 10/02/2024 I am seeing the patient today under the supervision of Dr. Olguin who was available but who did not see the patient. HPI: Patient is a 58-year-old female approximately 1 year status post right total knee arthroplasty performed by Dr. Gupta. She has had a difficult postoperative course. Is still dealing with postoperative stiffness. Continues to have pain and stiffness in the knee that limits her ability to walk and perform ADLs. Has a lot of pain at night as well. Pain is predominantly over the anterior aspect of the knee. PMH/PSH/MEDS/ALL/F MH/SOC HX/ROS all reviewed in detail per my medical intake sheet. ROS: the patient denies fevers or chills Exam: Vitals signs as noted. Alert and oriented x3. Appears well and in no acute distress. Extremities: Incision is well-healed. Calves are soft and nontender. No evidence of DVT. No lower extremity edema. Neurovascular status at baseline. Right knee: Moderate tenderness to palpation about the peripatellar region and quadriceps tendon. Range of motion is 5-100. At 30 degrees moderate medial laxity with valgus stress, mild lateral laxity with varus stress. No laxity in terminal extension. No significant effusion. Quad strength is 4+/5. X-rays were reviewed NEOS. 3 views of the right knee demonstrate a total joint arthroplasty with good interfaces and alignment. No evidence of any lysis or loosening. No acute fractures appreciated. No change with previous radiographs. Assessment: The patient is approximately 1 year s/p TKA. Mid flexion instability Plan: I explained the nature of the diagnosis with the patient and its treatment options both conservative and surgical. Conservative measures were discussed at length including but not limited to physical therapy, bracing, anti-inflammatorie s. Recommended a hinged knee brace for now with weightbearing activities. Would like her to follow up with Dr. Gupta to discuss potential revision of the liner component. The patient understands and agrees with the plan. They know to call if they have any further questions or concerns regarding their symptoms, or to follow up sooner if needed. [email or web address] Not available 10/02/2024 12:32:59 11/03/2024 11/03/2024 Problem: Pain stiffness and instability status post right total knee HPI: The patient is a 58-year-old female right total knee August 2023. The patient has had a prolonged postoperative course. She required manipulation. She has reported chronic pain. 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 At her last office visit she was told to have some instability. She was put in a hinged knee brace. The patient states that with the hinged knee brace her knee feels more stable. She has less feelings of giveaway weakness. However, she reports that her knee continues to feel swollen. In addition, she reports that her knee still feels stiff. Patient reports doing her exercises at home. Past family, medical, social history and review of systems has been reviewed, updated and is located in the patient's chart. Examination: The patient's right knee surgical wound is well-healed. Right knee range of motion 0-95 degrees. There is some mild subpatellar crepitus. There is some mild medial laxity. That is reproducible in the office. There is minimal flexion-based laxity. There is no erythema, redness, or signs of infection. There is no significant effusion. There is appropriate level of soft tissue swelling. Imaging: X-rays ordered, obtained and reviewed in the office today on [facility] PACS: Weightbearing AP of both knees, lateral of the right knee, and sunrise view of both knees demonstrate; Show appropriate position of the patient's right total knee arthroplasty. Overall limb alignment is neutral. Implant position is satisfactory. Patellar tracking is midline. Bone implant interfaces are intact and no evidence of fracture or osteolysis. Impression: Status post total knee arthroplasty with stiffness and instability and persistent pain Plan: At this point I have recommended to the patient that we will proceed with revision surgery. She does have some medial laxity. The same time we will perform a debridement by attempting to remove as much scar tissue as possible. I explained to the patient that this may help for her medial laxity. However, I cannot guarantee will improve her range of motion. In fact, there is a possibility that her motion could actually worsen. I attempted to explain this in the office today. I explained to her that it is likely that her knee will remain persistently swollen. I emphasized the importance of early participation in outpatient physical therapy. Further we will utilize a CPM postoperatively for range of motion The patient knows I will be happy to meet with them again at any time in order to review any additional questions or concerns that they might have. ? Patient was satisfied with this plan. I attempted to answer all of the patient's questions. ? [facility] speech recognition resource analyst software was used to create portions of this document. An attempt at proofreading has been made to minimize errors. Please call for corrections. ? [email or web address] Not available 11/03/2024 12:27:52 Plan of Treatment Reminders Order Date Submit Date Provider Last Modified By Organization Details Last Modified Time Details Appointments GENNA [facility] 2024 11:00A M Lianna Nelson CNP Not available Not available Not available SURGERY @ [facility] 2024 11:30A M Víctor Gupta MD Not available Not available Not available RECHECK 10 2024 10:50A M Víctor Gupta MD Not available Not available Not available Lab ESR (erythroc yte sedimenta tion rate), blood 2023 024 [facility] (Centralized Electronic Ordering - All Locations), Patient Can Go To The Location Of Their Choice, [id number] 01/15/2024 21:13:25 C reactive protein, QN, serum or plasma 2023 024 [facility] (Centralized Electronic Ordering - All Locations), Patient Can Go To The Location Of Their Choice, [id number] 01/15/2024 21:13:26 CBC w/ auto diff 2023 024 [facility] (Centralized Electronic Ordering - All Locations), Patient Can Go To The Location Of Their Choice, [address] 01/15/2024 21:13:24 Referral None recorded. Procedures None recorded. Surgeries None recorded. Imaging XR, knee, 3 view - 204, 3 views of right knee 2024 025 [email or web address] [facility], [address], [place], [address], 11/13/2024 12:36:41 XR, knee, 3 view - 205 rtkr pain 2023 024 [email or web address] [facility], [address], [place], [address], 04/23/2024 10:40:12 Medication Orders tizanidin e 4 mg tablet 2024 025 [place] [facility], [address] [place] [address], [address], 10/02/2024 11:27:47 amoxicill in 500 mg capsule 2024 025 [email or web address] [facility], [facility] [place], [address], 10/02/2024 15:19:09 diclofena c 1 % topical gel 2023 024 [email or web address] [facility], [facility] [place], [address], 07/03/2024 07:52:05 tizanidin e 4 mg tablet 2023 024 [email or web address], [address] [facility], [place], [address], 04/02/2024 16:08:21 Patient TargetsNo targets recorded. Patient InstructionsNo instructions recorded. Reason for Referral None Reported. Results Created Date Observation Date Name Description Value Unit Range Abnormal Flag Note LastModifiedBy Organization Detail LastModifiedTime 01/15/2001/15/2024 CBC WITH DIFFE RENTI AL/PL ATELE T WBC 7.0 K/mm3 4.0-11 .0 Not Available [address], [address], 01/15/2024 21:13:24 01/15/2001/15/2024 CBC WITH DIFFE RENTI AL/PL ATELE T RBC 4.47 M/mm3 4.20-5 .40 Not Available [address], [address], 01/15/2024 21:13:24 01/15/20 24 01/15/2024 CBC WITH DIFFE RENTI AL/PL ATELE T hemoglobin 12.5 gm/dL 11.7-1 5.5 Not Available [address], [address], 01/15/2024 21:13:24 01/15/2001/15/2024 CBC WITH DIFFE RENTI AL/PL ATELE T hematocrit 39.4 % 35.7-4 5.8 Not Available [address], [address], 01/15/2024 21:13:24 01/15/2001/15/2024 CBC WITH DIFFE RENTI AL/PL ATELE T MCV 88.1 fL 80.0-1 00.0 Not Available [address], [address], 01/15/2024 21:13:24 01/15/2001/15/2024 CBC WITH DIFFE RENTI AL/PL ATELE T MCH 28.0 pg 27.0-3 4.0 Not Available [address], [address], 01/15/2024 21:13:24 01/15/20 24 01/15/2024 CBC WITH DIFFE RENTI AL/PL ATELE T MCHC 31.7 g/dL 33.0-3 7.0 below low normal Not Available [address], [address], 01/15/2024 21:13:24 01/15/20 24 01/15/2024 CBC WITH DIFFE RENTI AL/PL ATELE T RDW 46.3 fL <47.0 Not Available [address], [address], 01/15/2024 21:13:24 01/15/2001/15/2024 CBC WITH DIFFE RENTI AL/PL ATELE T platelets 314 K/mm3 150-46 0 Not Available [address], [address], 01/15/2024 21:13:24 01/15/2001/15/2024 CBC WITH DIFFE RENTI AL/PL ATELE T neutrophils 42.3 % 44-76 below low normal Not Available [address], [address], 01/15/2024 21:13:24 01/15/2001/15/2024 CBC WITH DIFFE RENTI AL/PL ATELE T lymphs 48.9 % 15-43 above high normal Not Available [address], [address], 01/15/2024 21:13:24 01/15/20 24 01/15/2024 CBC WITH DIFFE RENTI AL/PL ATELE T monocytes 7.0 % 4.5-10 .5 Not Available [address], [address], 01/15/2024 21:13:24 01/15/20 24 01/15/2024 CBC WITH DIFFE RENTI AL/PL ATELE T eos 0.9 % 0-6 Not Available [address], [address], 01/15/2024 21:13:24 01/15/20 24 01/15/2024 CBC WITH DIFFE RENTI AL/PL ATELE T basos 0.6 % 0-2 Not Available [address], [address], 01/15/2024 21:13:24 01/15/20 24 01/15/2024 CBC WITH DIFFE RENTI AL/PL ATELE T neutrophils (absolute) 3.0 K/mm3 1.3-7. 0 Not Available [address], [address], 01/15/2024 21:13:24 01/15/20 24 01/15/2024 CBC WITH DIFFE RENTI AL/PL ATELE T lymphs (absolute) 3.4 K/mm3 0.8-3. 1 above high normal Not Available [address], [address], 01/15/2024 21:13:24 01/15/20 24 01/15/2024 CBC WITH DIFFE RENTI AL/PL ATELE T monocytes(ab solute) 0.5 K/mm3 0.4-0. 9 Not Available [address], [address], 01/15/2024 21:13:24 01/15/20 24 01/15/2024 CBC WITH DIFFE RENTI AL/PL ATELE T eos (absolute) 0.1 K/mm3 0.0-0. 4 Not Available [address], [address], 01/15/2024 21:13:24 01/15/20 24 01/15/2024 CBC WITH DIFFE RENTI AL/PL ATELE T baso (absolute) 0.0 K/mm3 0.0-0. 1 Not Available [address], [address], 01/15/2024 21:13:24 01/15/20 24 01/15/2024 CBC WITH DIFFE RENTI AL/PL ATELE T immature granulocytes 0.3 % Not Available [address], [address], 01/15/2024 21:13:24 01/15/20 24 01/15/2024 CBC WITH DIFFE RENTI AL/PL ATELE T immature grans (abs) 0.0 K/mm3 Not Available [address], [address], 01/15/2024 21:13:24 01/15/20 24 01/15/2024 CBC WITH DIFFE RENTI AL/PL ATELE T NRBC 0.0 #/100 _WBC' s Not Available [address], [address], 01/15/2024 21:13:24 01/15/20 24 01/15/2024 CBC WITH DIFFE RENTI AL/PL ATELE T hematology comments: Commen t AUTOM ATED DIFFE RENTI AL MPV 9.5 FL 9.4-1 2.4 N ABS. NRBC 0.0 K/MM3 N Not Available [address], [address], 01/15/2024 21:13:24 01/15/20 24 01/15/2024 SEDIM ENTAT ION RATE- WESTE RGREN sedimentatio n rate-westerg paola 4 mm/HR 0-20 Not Available [address], [address], 01/15/2024 21:13:25 01/15/20 24 01/15/2024 C-TEZ CTIVE PROTE IN, QUANT C-reactive protein, quant <0.3 mg/dL 0-0.5 Not Available [facility] [address], [place], [address], 01/15/2024 21:13:26 03/20/20 24 09/13/2023 imagi ng/di agnos tic resul t No observ ation record ed. [email or web address] Not Available 02/21 04:38:44 04/02/2004/02/2024 XR, knee, 3 view [email or web address]:/ [email or web address] ?Encry pted=s hAaTro YD8dLq bEUv6g %2BXZw aYqtaq 0bqfl% 2Fg9IQ a4ajBk vP9nXo QUaueC m3YtLR FvZl JJ8[facility] Centertai3 5g1420 AC0Kqa n6DUKe hKiQtr MwF INTERFACE [facility] [address], [place], [address], 04/02/2024 15:56:44 04/02/20 24 04/02/2024 XR, knee, 3 view [email or web address] ?Encry pted=s hAaTro YD8dLq bEUv6g %2BXZw aYqtaq 0bqfl% 2Fg9IQ a4ajBk vP9nXo QUaueC m3YtLR Fv[address]tai3 2t2594 AC0Kqa n6DUKe hKiQtr MwF INTERFACE [facility] [address] [facility] [address], [place], [address], 04/02/2024 15:56:47 11/04/19 25 11/03/2024 XR, knee, 3 view [email or web address] ?Encry pted=s hAaTro YD8dLq bEUv6g %2BXZw aYqtaq 0bqfl% 2Fg9IQ a4ajBk vP9nXo QUaueC m3YtLR FvZl [address] Streettai3 3r[address]25 AC0KqY 3qFVKK hKiQtr MwF INTERFACE [facility] [address] [facility] [address], [place], [address], 11/03/2024 11:31:01 11/04/19 25 11/03/2024 XR, knee, 3 view [email or web address]:/ [email or web address] ?Encry pted=s hAaTro YD8dLq bEUv6g %2BXZw aYqtaq 0bqfl% 2Fg9IQ a4ajBk vP9nXo QUaueC m3YtLR FvZlgJ JJ8mAn HZtai3 1m3801 AC0KqY 3qFVKK hKiQtr MwF INTERFACE [facility] [address] [facility] [address], [place], [address], 11/03/2024 11:31:03 Result Notes Documentation Provider Name and Address Organization Details Recorded Time Xr, Knee, 3 View : [email or web address] Encrypted=pzXjKnuXG2jXayY Uv6g%8OWJrgBtiyg7wxvb%2Fg 4FUe0foNxeS4xVyHPaazSi2Hg SCNlNwyLBS4vJjCIxwe38w311 9MR5Lajc1GBVasKjGqkKfX Not Available [facility] 04/02/2024 15:56: 45 Xr, Knee, 3 View : [email or web address] Encrypted=viEzUtjYD7vKuoB Uv6g%9SNGioMwxpk3ddwp%2Fg 8ROz1wzRxcV5kTnLVnbkLo2Oh WJWyDdqKPU5uYsXHbva78s688 0SM6Disk6PAZofRzTunCtC Not Available [facility] 04/02/2024 15:56: 47 Xr, Knee, 3 View : [email or web address] Encrypted=dwRlIawHR8sEzoY Uv6g%2KGLetVjocq7gdpj%2Fg 7CJd6qsGctP7vZaPNbwcDh5Zv LENzLamYLB1pUhQPydk09l993 6VH0IrH5kQNBWzVeVjrMrQ Not Available [facility] 11/03/2024 11:31: 02 Xr, Knee, 3 View : [email or web address] Encrypted=raOxDdlNA6aDyxC Uv6g%5LIWpaBfolz6sgsi%2Fg 8HRq3hpWxrE3mYkBRhayZa4Ho QCSvKfaCLD6hDzTNgxd30g373 5DC3OeB0wRZDZbTdIpwYiG Not Available [facility] 11/03/2024 11:31: 03 Problems Name Problem SNOMED Code Status Onset Date Resolution Date Notes Provider Name and Address Organization Details Recorded Time No complaints 134628478 Active Status : 'A'; Not Available [facility] 4 09:14:26 Pain of right knee joint 4841783349483 00 Active 2023 Víctor Gupta MD [address] [facility], [facility] [place], [address] , [facility] 4 12:05:08 Problem Notes None recorded. Procedures Surgical History Date Name Laterality Status Provider Name and Address Organization Details Recorded Time 4 78787 Therapeutic Exercise (1:1) completed Gabriele Jiménez DPT [address] [facility], [place], [address], [facility] 11/11/2023 16:05:55 4 [address]2769: Manual therapy completed Gabriele Jiménez DPT [address], [place], [address], [facility] 11/11/2023 16:05:59 4 47897 Therapeutic Exercise (1:1) completed Gabriele Jiménez DPT [address], [place], [address], [facility] 11/07/2023 14:56:02 4 51916: Manual therapy completed KATHY ErvinT [address], [place], [address], [facility] 11/07/2023 14:56:02 4 05084 Therapeutic Exercise (1:1) completed Hailey Dodson, PROGRAMMING DIRECTOR [address], [place], [address], [facility] 10/28/2023 13:01:34 4 99127: Manual therapy completed Hailey Dodson, PROGRAMMING DIRECTOR [address], [place], [address], [facility] 10/28/2023 13:01:34 4 06013 Therapeutic Exercise (1:1) completed Hailey Dodson, PROGRAMMING DIRECTOR [address], [place], [address], [facility] 10/25/2023 14:44:53 4 44868: Manual therapy completed Hailey Dodson, PROGRAMMING DIRECTOR [address], [place], [address], [facility] 10/25/2023 14:44:53 4 76899 Therapeutic Exercise (1:1) completed Hailey Dodson, PROGRAMMING DIRECTOR [address], [place], [address], [facility] 10/23/2023 16:12:47 4 36644: Manual therapy completed Hailey Dodson, PROGRAMMING DIRECTOR [address], [place], [address], [facility] 10/23/2023 16:12:47 4 53709 Therapeutic Exercise (1:1) completed Hailey Dodson, PROGRAMMING DIRECTOR [address], [place], [address], [facility] 10/23/2023 12:37:18 4 98970: Manual therapy completed Hailey Fujosee, PROGRAMMING DIRECTOR [address], [place], [address], [facility] 10/23/2023 12:37:18 4 96446 Therapeutic Exercise (1:1) completed Hailey Alcalae, PROGRAMMING DIRECTOR [address], [place], [address], [facility] 10/17/2023 11:40:26 4 07687: Manual therapy completed Hailey Alcalae, PROGRAMMING DIRECTOR [address], [place], [address], [facility] 10/17/2023 11:40:26 4 70097 Therapeutic Exercise (1:1) completed Hailey Alcalae, PROGRAMMING DIRECTOR [address], [place], [address], [facility] 10/17/2023 10:22:56 4 09465: Manual therapy completed Hailey Alcalae, PROGRAMMING DIRECTOR [address], [place], [address], [facility] 10/17/2023 10:22:56 4 55696 Therapeutic Exercise (1:1) completed Hailey Dodson, PROGRAMMING DIRECTOR [address], [place], [address], [facility] 10/14/2023 08:52:25 4 34575: Manual therapy completed Hailey Alcalae, PROGRAMMING DIRECTOR [address], [place], [address], [facility] 10/14/2023 08:52:25 4 01555 Therapeutic Exercise (1:1) completed Hailey Schmittdge, PROGRAMMING DIRECTOR [address], [place], [address], [facility] 10/13/2023 16:19:03 4 96466: Manual therapy completed Hailey Dodson, PROGRAMMING DIRECTOR [address], [place], [address], [facility] 10/11/2023 08:45:24 4 36533 Therapeutic Exercise (1:1) completed Hailey Alcalae, PROGRAMMING DIRECTOR [address], [place], [address], [facility] 10/08/2023 23:54:11 4 96784: Manual therapy completed Hailey Alcalae, PROGRAMMING DIRECTOR [address], [place], [address], [facility] 10/08/2023 23:54:11 4 70268 Therapeutic Exercise (1:1) completed Hailey Dodson, PROGRAMMING DIRECTOR [address], [place], [address], [facility] 10/04/2023 08:36:40 4 47704: Manual therapy completed Hailey Dodson, PROGRAMMING DIRECTOR [address], [place], [address], [facility] 10/04/2023 08:36:40 4 20519 Therapeutic Exercise (1:1) completed Gabriele Jiménez, DPT [address], [place], [address], [facility] 10/02/2023 14:00:10 4 84243: Manual therapy completed Gabriele Jiménez, DPT [address], [place], [address], [facility] 10/02/2023 14:00:13 Imaging Results None recorded. Procedure Notes None recorded. Medical Equipment None Reported. Allergies No known drug allergies Medications Name Sig Start Date Stop Date Status Note LastModified by Organization Details LastModified Time celecoxib 200 mg capsule Take 1 capsule every day by oral route for 30 days. active Not Available Not Available No t Available amoxicillin 500 mg capsule TAKE FOUR CAPSULES BY MOUTH ONCE 1 HOUR PRIOR TO PROCEDURE active Not Available Not Available No t [...] tablet TAKE ONE TABLET BY MOUTH EVERY 8 HOURS NEEDED FOR SPASMS FOR 14 DAYS active Not Available Not Available No t [...] DAY FOR 30 DAYS STARTING AFTER SURGERY 11/03 completed Not Available Not Available Not Available hydrocodone 7.5 mg-acetamin ophen 325 mg tablet TAKE ONE TABLET BY MOUTH FOUR TIMES A DAY NEEDED FOR PAIN active Not Available Not Available No t Available pantoprazol e 40 mg tablet,rebecca yed release TAKE ONE TABLET BY MOUTH EVERY DAY STARTING DAY OF SURGERY 11/03 completed Not Available Not Available Not Available docusate sodium 100 mg capsule TAKE [...] tab q4-6 h as needed for pain 11/03 completed Not Available Not Available Not Available Vitamin D3 50 mcg (2,000 unit) [...] and Address Organization Details Last Updated DateTime 10/02/2024 157.48 cm 27.3 kg/m2 14510.26 g Jaz Lu [facility] 10/02/2024 11:02:56 Date Recorded Body height Body mass index (BMI) Body weight Provider Name and Address Organization Details Last Updated DateTime 11/03/2024 157.48 cm 27.3 kg/m2 81450.26 g Juan Pablo Hayes [facility] 11/03/2024 11:22:56 Date Recorded Body height Body mass index (BMI) Body weight Provider Name and Address Organization Details Last Updated DateTime 01/15/2024 157.48 cm 27.3 kg/m2 54292.26 g TYREL CAMERON [facility] 01/15/2024 15:14:26 Date Recorded Body height Provider Name an d Address Organization Details Last Updated DateTime 04/02/2024 157.48 cm ORTEGA HIGHTOWER [facility] 04/02/2024 15:50:25 Date Recorded Body height Body mass index (BMI) Body weight Provider Name and Address Organization Details Last Updated DateTime 07/02/2024 157.48 cm 27.3 kg/m2 44225.26 g DANIELLE KirklandHEUREUX [facility] 07/02/2024 10:29:38 Social History Question Answer Notes LastModified by Organizat Cynny Details LastModified Time Tobacco Smoking Status Never Smoker DANIELLE BURROUGHS null, [facility] 10/14/2023 14:12:53 What Is Your Relationship Status? Single Information not available 10/14/2023 Sex: Unknown Functional Status Question Answer Note LastModified by Organizat ion Details LastModified Time Do you use any illicit or recreational drugs? No Information not available 10/14/2023 Do you or have you ever used any other forms of tobacco or nicotine? No Information not available 10/14/2023 What is your level of alcohol consumption? None Information not available 10/14/2023 Mental Status None recorded. Family History Nothing Reported. Medical History Condition Response Allergies/Hayfever N Coronary Artery Disease N Anxiety/Depression N Emphysema N Thyroid Problems N COPD N Pacemaker N Kidney/Bladder Problems N Anemia N Vascular Disease N Gastrointestinal Disease N Heart Attack (OK) N Diabetes N Autoimmune disease N Bleeding [...] SNOMED-CT Code Diagnosis ICD10 Code Diagnosis Note [id number] [facility] [address] [place] [address] 10/02/2023 11:53:56 10/02/2023 14:41:32 Aftercare 137685335 Z47.1 History of right total knee replacement 7414396526 898388 Z96.761 [id number] Damieana Fudge, PROGRAMMING DIRECTOR [facility] [address] [place] [address] 10/04/2023 09:36:29 10/04/2023 16:10:14 Aftercare [id number] Z47.1 History of right total knee replacement 6767359351 801935 Z96.883 [id number] Damieana Fudge, PROGRAMMING DIRECTOR [facility] [address] [place] [address] 10/08/2023 15:25:35 10/08/2023 16:25:00 Aftercare 788453782 Z47.1 History of right total knee replacement 5625804037 282595 Z96.037 [id number] Damieana Fudge, PROGRAMMING DIRECTOR [facility] [address] [place] [address] 10/11/2023 13:09:49 10/11/2023 14:25:54 Aftercare [id number] Z47.1 History of right total knee replacement 5902639419 391865 Z96.377 [id number] Damieana Fudge, PROGRAMMING DIRECTOR [facility] [address] [place] [address] 10/14/2023 14:49:05 10/14/2023 15:59:49 Aftercare 158561784 Z47.1 History of right total knee replacement 3113392783 862469 Z96.202 [id number] Jesse Mccormack PA-C [facility] [address] [place] [address] 10/14/2023 14:02:59 10/14/2023 14:46:40 History of right total knee replacement 1146534719 290216 Z96.413 [id number] Damieana Fudge, PROGRAMMING DIRECTOR [facility] [address] [place] [address] 10/16/2023 13:20:42 10/16/2023 14:52:13 Aftercare [id number] Z47.1 History of right total knee replacement 8868449078 451590 Z96.932 [id number] Damieana Fudge, PROGRAMMING DIRECTOR [facility] [address] [place] [address] 10/17/2023 10:18:18 10/17/2023 11:15:25 Aftercare 459302210 Z47.1 History of right total knee replacement 3858207969 980203 Z96.559 [id number] Samariaana Fudge, PROGRAMMING DIRECTOR [facility] [address] [place], [place] [address] 10/22/2023 11:50:22 10/22/2023 14:10:51 Aftercare 645755470 Z47.1 History of right total knee replacement 0734652537 758038 Z96.764 [id number] Damieana Fudge, PROGRAMMING DIRECTOR [facility] [address] [place], [place] [address] 10/23/2023 12:43:05 10/23/2023 13:37:48 Aftercare [id number] Z47.1 History of right total knee replacement 4982402436 103959 Z96.688 [id number] Damtatyanaana Fudge, PROGRAMMING DIRECTOR [facility] [address] [place] [address] 10/25/2023 13:19:59 10/25/2023 14:13:00 Aftercare [id number] Z47.1 History of right total knee replacement 6994177607 469866 Z96.997 [id number] Damtatyanaana Fudge, PROGRAMMING DIRECTOR [facility] [address] [place] [address] 10/28/2023 12:51:30 10/28/2023 13:40:37 Aftercare [id number] Z47.1 History of right total knee replacement 0830427989 697896 Z96.667 [id number] Jesse Mccormack PA-C [facility] [address] [place] [address] 10/31/2023 15:00:29 11/20/2023 16:09:35 History of right total knee replacement 6758771641 147639 Z96.015 [id number] Víctor Gupta MD [facility] [address] [place] [address] 11/06/2023 11:21:42 11/27/2023 11:59:28 History of right total knee replacement 4996501706 994466 Z96.651 Pain of ri ght knee joint 6553620167 06989 M25.671 [id number] Gabriele Jiménez , DPT [facility] [address] [place] [address] 11/07/2023 12:53:45 11/07/2023 13:56:37 Aftercare [id number] Z47.1 History of right total knee replacement 3988741799 251560 Z96.572 [id number] Gabriele Jiménez , DPT [facility] [address] [place] [address] 11/11/2023 08:59:58 11/11/2023 13:42:31 Aftercare [id number] Z47.1 History of right total knee replacement 1812948280 269671 Z96.044 [id number] Damtatyanaana Fudge, PROGRAMMING DIRECTOR [facility] [address] [place] [address] 11/12/2023 15:18:29 11/12/2023 16:07:26 Aftercare [id number] Z47.1 History of right total knee replacement 0341738178 412037 Z96.159 [id number] Damtatyanaana Fudge, PROGRAMMING DIRECTOR [facility] [address] [place] [address] 11/13/2023 10:20:27 11/13/2023 11:07:10 Aftercare 058577246 Z47.1 History of right total knee replacement 4234135795 368239 Z96.791 [id number] Damieana Fudge, PROGRAMMING DIRECTOR [facility] [address] [place] [address] 11/14/2023 12:54:14 11/14/2023 13:54:27 Aftercare [id number] Z47.1 History of right total knee replacement 2086370296 457401 Z96.716 [id number] Damieana Fudge, PROGRAMMING DIRECTOR [facility] [address] [place] [address] 11/18/2023 16:00:59 11/18/2023 16:35:22 Aftercare [id number] Z47.1 History of right total knee replacement 7631720895 545214 Z96.134 [id number] Damalana Fudge, PROGRAMMING DIRECTOR [facility] [address] [place] [address] 11/19/2023 11:57:00 11/19/2023 13:33:26 Aftercare [id number] Z47.1 History of right total knee replacement 1291378435 069615 Z96.099 [id number] Gabriele Jiménez , DPT [facility] [address] [place] [address] 11/20/2023 12:54:10 11/20/2023 15:51:05 Aftercare [id number] Z47.1 History of right total knee replacement 7619116572 972159 Z96.254 [id number] Damtatyanaana Fudge, PROGRAMMING DIRECTOR [facility] [address] [place] [address] 11/21/2023 15:20:48 11/21/2023 17:28:01 Aftercare [id number] Z47.1 History of right total knee replacement 2014089653 498788 Z96.938 [id number] Damieana Fudge, PROGRAMMING DIRECTOR [facility] [address] [place] [address] 11/22/2023 10:29:53 11/22/2023 11:24:15 Aftercare [id number] Z47.1 History of right total knee replacement 8118193612 916287 Z96.378 [id number] Damieana Fudge, PROGRAMMING DIRECTOR [facility] [address] [place] [address] 11/25/2023 13:56:50 11/25/2023 14:30:35 Aftercare [id number] Z47.1 History of right total knee replacement 6176578588 617133 Z96.364 [id number] Mary Jane Apple PA-C [facility] [address] [place] [address] 11/25/2023 14:39:49 11/25/2023 15:36:05 Postoperative pain 863443194 G89.18 [id number] MD Parker [facility] [address] [place] [address] 12/04/2023 11:03:12 12/26/2023 10:32:34 History of right total knee replacement 7142337487 506719 Z96.507 [id number] Samariaana Fudge, PROGRAMMING DIRECTOR [facility] [address] [place] [address] 12/03/2023 10:28:02 12/03/2023 11:03:57 Aftercare [id number] Z47.1 History of right total knee replacement 1874427504 812246 Z96.195 [id number] Gabriele Jiménez , DPT [facility] [address] [place] [address] 12/11/2023 11:00:34 12/11/2023 11:51:33 Aftercare [id number] Z47.1 History of right total knee replacement 6125016673 031144 Z96.282 [id number] Yoeltatyanaabe Fudge, PROGRAMMING DIRECTOR [facility] [address] [place] [address] 12/13/2023 08:48:51 12/13/2023 10:04:52 Aftercare [id number] Z47.1 History of right total knee replacement 7924862105 164777 Z96.450 [id number] Damtatyanaana Fudge, PROGRAMMING DIRECTOR [facility] [address] [place] [address] 12/18/2023 11:10:22 12/18/2023 11:33:57 Aftercare [id number] Z47.1 History of right total knee replacement 7028860503 696822 Z96.604 [id number] Damtatyanaana Fudge, PROGRAMMING DIRECTOR [facility] [address] [place] [address] 12/30/2023 09:31:33 12/30/2023 10:14:23 Aftercare [id number] Z47.1 History of right total knee replacement 4102238214 182313 Z96.587 [id number] MD Parker Taylor [address] [place] [address] 01/15/2024 15:12:09 02/04/2024 16:11:42 History of right total knee replacement 9917929388 148968 Z96.446 [id number] Víctor Gupta MD [facility] [address] [place] [address] 04/02/2024 15:46:22 04/23/2024 10:40:12 History of right total knee replacement 8648580852 233470 Z96.524 [id number] [facility] [address] [place] [address] 07/02/2024 10:01:50 07/28/2024 13:45:02 History of right total knee replacement 4518881468 055204 Z96.761 [id number] Jesse Mccormack PA-C [facility] [address] [place] [address] 10/02/2024 10:49:13 10/16/2024 07:24:38 History of right total knee replacement 2367467319 823012 Z96.627 [id number] Víctor Gupta MD [facility] [address] [place] [address] 11/03/2024 11:10:01 11/13/2024 12:36:41 History of right total knee replacement 0398573070 069486 Z96.651 Health Concerns Section Related Observation LastModified by Organization Detai ls LastModified Time None Recorded Concern Status LastModified by Organization Details LastModified Time None Recorded Advance Directives Directive None Recorded Payers Insurance Date Sequence Insurance Name Policy Number Policy Fowler Covered Member ID Fowler Member ID Guarantor Name 11/13/2024 1 [facility] HEALTH NET PLAN (MEDICAID HMO) [place] Brandi A Damon [id number] Brandi Damon OBGyn Episode No OBEpisode recorded.
== END 2025-01-01 10:22 | disposition home or self-care (01) ==
LOC: HO.HGS 10:04
PROVIDERS: PCP Internal Medicine; Visit Provider Surgery
DX: Z12.39 Encounter for other screening for malignant neoplasm of breast (principal); Z80.3 Family history of malignant neoplasm of breast
CPT/HCPCS: 99213; G2211

== ENCOUNTER → 2025-01-01 10:03 | Outpatient (BNVA) | payer OTHER, SELFPAY | PROVIDERS: PCP Internal Medicine; Visit Provider Surgery | DX: Z12.39 Encounter for other screening for malignant neoplasm of breast (principal); Z80.3 Family history of malignant neoplasm of breast | CPT/HCPCS: 99212 ==

== ENCOUNTER 2025-05-12 10:56 | Outpatient (REF) | payer OTHER, SELFPAY ==
--- OUTSIDE RECORDS SUMMARY | 2025-05-12 14:35 | XMS_ITS | Patient Health Record ---
Author Organization [facility] Address [address] [place] [address] Care Team Providers Care Spice Mixer Name Role Phone Lydia Stanley MD Primary Care Provider Jean Pierre Hernandez [phone] Reason For Referral No Information Medications Medication SIG (Take, Route, Frequency, Duration) Notes Start Date End Date Status Methotrexate (PF) 15 MG/0.4ML Subcutaneous 11/02/2015 Active HYDROcodone-Acetaminophen 7.5-325 MG (Schedule II Drug) TAKE 1 TO 2 TABLETS BY MOUTH TWICE A DAY NEEDED Oral; Duration: 28 Active Loratadine 10 MG TAKE 1 TABLET BY NICKY TH EVERY DAY Oral; Duration: 30 Active Simponi 50 MG/0.5ML Subcutaneous Active MiraLax 1 1 bottle Orally as directed; Duration: 1 days 05/13/2016 Activ e ProAir HFA 108 (90 Base) MCG/ACT INHALE 2 PUFFS EVERY DAY Inhalation; Duration: 25 Active Dulcolax 5 MG 4 tablets Orally as directed; Duration: 1 days 05/13/2016 Activ e Ibuprofen 800 MG TAKE 1 TABLET BY NICKY TH 3 TIMES A DAY NEEDED Oral; Duration: 30 Active Problems Problem Type SNOMED Code ICD Code Onset Dates Problem Status W/U Status Risk Notes Problem Screening for malignant neoplasm of colon (461890307) Encounter for screening for malignant neoplasm of colon (Z12.11) Active confirmed Problem Screening for malignant neoplasm of rectum (956193870) Encounter for screening for malignant neoplasm of rectum (Z12.12) Active confirmed Problem Preprocedural examination (061356451087600) Preprocedural examination (Z01.818) Active confirmed Problem long-term current use of non-steroidal anti-inflammatory drug (308237625274932) NSAID long-term use (Z79.1) Active confirmed Plan Of Treatment Future Test Test Name Order Date COLONOSCOPY 11/02/2015 Insurance Providers Payer Name Payer Address Payer Phone Subscriber Number Group Number Insured Name Patient Relationship to Insured Coverage Start Date Coverage End Date [facility] [address] [facility] [phone] [id number] BETSY BONILLA Self - patient is the insured Medical (General) History Medical History History ICD Code Denies [place],DM,CVA,renal disease Asthma Rheumatoid arthritis--sees Dr. Mcknight Surgical History Surgery Date(Month/Year) Gastric lap band-Dr. Haskins 2009 Gastric lap band removed--Dr. Georges Cholecystectomy
== END 2025-05-12 10:57 | disposition home or self-care (01) ==
LOC: HO.MAMMO 10:56
PROVIDERS: PCP Internal Medicine; Visit Provider Internal Medicine
DX: Z12.31 Encounter for screening mammogram for malignant neoplasm of breast (principal)
CPT/HCPCS: 77063; 77067

== ENCOUNTER → 2025-05-12 11:00 | Outpatient (BNV) | payer OTHER, SELFPAY | PROVIDERS: PCP Internal Medicine; Visit Provider Radiology Body Imaging | DX: Z12.31 Encounter for screening mammogram for malignant neoplasm of breast (principal) | CPT/HCPCS: 77063; 77067 ==

== ENCOUNTER 2025-05-31 08:22 | Outpatient (REF) | payer OTHER, SELFPAY ==
--- OUTSIDE RECORDS SUMMARY | 2025-05-31 08:43 | XMS_ITS | Patient Health Record ---
Author Organization [facility] Address [address] [place] [address] Care Team Providers Care Aerospace Mechanic Name Role Phone Lydia Stanley MD Primary Care Provider Jean Pierre Hernandez [phone] Reason For Referral No Information Medications Medication [...] Problem Screening for malignant neoplasm of colon (727872173) Encounter for screening for malignant neoplasm of colon (Z12.11) Active confirmed Problem Screening for malignant neoplasm of rectum (339889588) Encounter for screening for malignant neoplasm of rectum (Z12.12) Active confirmed Problem Preprocedural examination (844484088389306) Preprocedural examination (Z01.818) Active confirmed Problem [facility] current use of non-steroidal anti-inflammatory drug (016309373637233) NSAID long-term use (Z79.1) Active confirmed Plan Of Treatment Future Test Test Name Order Date COLONOSCOPY 11/02/2015 Insurance Providers Payer Name Payer Address Payer Phone Subscriber Number Group Number Insured Name Patient Relationship to Insured Coverage Start Date Coverage End Date [facility] [address] [facility] [phone] [id number] BETSY BONILLA Self - patient is the insured Medical (General) History Medical History History ICD Code Denies [place],DM,CVA,renal disease Asthma Rheumatoid arthritis--sees Dr. Mcknight Surgical History Surgery Date(Month/Year) Gastric lap band-Dr. Haskins 2009 Gastric lap band removed--Dr. Georges Cholecystectomy
--- OUTSIDE RECORDS SUMMARY | 2025-05-31 08:44 | XMS_ITS | Data Portability ---
Author Organization [facility] - Raimundo Avila [facility] Surgeons [facility], [facility] Address [address] [place] [address] Care Team Providers Care Dynamics Ax Developer Name Role Phone DEVON DOYLECIRILO Primary Care Provider [phone] Assessment Encounter Date Assessment Date Assessment LastModified by Organization Details LastModified Time 04/02/2024 04/02/2024 PROBLEM: Status post Right total [...] reviewed, updated and is located in the patient s chart. EXAM: The patient ambulates with a non-antalgic gait. The surgical wound is well-healed. There is no erythema, redness, or signs of infection. Right knee range of motion 5-100 . There is no significant sub-patellar crepitus. There is expected postoperative swelling but no significant effusion. The knee is stable to varus and valgus loading at 0 and 90 without evidence of significant instability. IMAGING: X-rays ordered, obtained and reviewed in the office today on [facility] PACS: Weightbearing AP of both knees, lateral [...] all of her and her family's questions. [employer] [facility] speech recognition quality control systems manager software was used to create portions of [...] or to follow up sooner if needed. [email or web address] Not available 07/02/2024 12:20:57 10/02/2024 10/02/2024 I [...] or to follow up sooner if needed. Not available 10/02/2024 12:32:59 11/03/2024 11/03/2024 Problem: Pain stiffness and instability status post right total knee HPI: The patient is a 58-year-old female right total knee August 2023. The patient has had a prolonged postoperative course. She required manipulation. She has reported chronic pain. 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 At her last office visit she was [...] and reviewed in the office today on [facility] PACS: Weightbearing AP of both knees, lateral [...] questions or concerns that they might have. Patient was satisfied with this plan. I attempted to answer all of the patient's questions. [facility] speech recognition quality control systems manager software was used to create portions of this document. An attempt at proofreading has been made to minimize errors. Please call for corrections. Not available 11/03/2024 12:27:52 04/07/2025 04/07/2025 Problem: Painful right total knee with instability HPI: The patient returns to the office today for follow-up. She has previously been scheduled for debridement and liner exchange for extensive scarring and some medial side laxity. Patient chose to cancel her surgery. Patient comes to the office today to discuss questions. She reports ongoing pain in her knee. She has especially nighttime pain. She takes tizanidine at nighttime for pain control. Patient is walking without a cane or assistive device. She has no fevers or chills. She reports that her symptoms have not substantially changed Past family, medical, social history and review of systems has been reviewed, updated and is located in the patient's chart. Examination: Patient's right knee surgical wound is well-healed. Right knee range of motion 0-90 degrees. Right knee is stable to varus/valgus loading. There is some very mild medial laxity which is reproductive of her symptoms. There is no significant effusion. Imaging: X-rays ordered, obtained and reviewed in the office today on [facility] PACS: Weightbearing AP of both knees, lateral of the right knee, and sunrise view of both knees demonstrate; Show appropriate position of the patient's right total knee arthroplasty. Overall limb alignment is neutral. Implant position is satisfactory. Patellar tracking is midline. Bone implant interfaces are intact and no evidence of fracture or osteolysis. Impression: Status post right total knee arthroplasty with persistent pain, arthrofibrosis, and question medial laxity Plan: The patient's family presents today to translate. I reviewed with the patient and her family options for treatment. Bracing has not provided substantial benefit. However I did not patient a bracing would help with her feelings of medial side laxity. Patient does have arthrofibrosis. She significantly struggled with her postoperative course. I explained to the patient that in her current situation delay of surgery does not make a substantial change to her long-term prognosis. I attempted to answer all the patient's questions today in the office. I refilled her tizanidine. Patient will call us if she wishes to proceed with consider revision surgery in the future. The patient knows I will be happy to meet with them again at any time in order to review any additional questions or concerns that they might have. Patient was satisfied with this plan. I attempted to answer all of the patient's questions. [facility] speech recognition quality control systems manager software was used to create portions of this document. An attempt at proofreading has been made to minimize errors. Please call for corrections. [email or web address] Not available 04/07/2025 11:37:30 Plan of Treatment Reminders Order Date Submit Date Provider Last Modified By Organization Details Last Modified Time Details Appointments None recorded. Lab None recorded. Referral None recorded. Procedures None recorded. Surgeries None recorded. Imaging XR, knee, 3 view - RM 205 HX RTKR. Candy Protocol 2024 025 [email or web address] [facility], [address], [address], [place], [address], 5 09:49:55 XR, knee, 3 view - 204, 3 views of right knee 2024 025 [facility], [address], [address], [place], [address], 5 12:36:41 XR, knee, 3 view - 205 rtkr pain 2023 024 [email or web address] [facility], [address], [address], [place], [address], 4 10:40:12 Medication Orders tizanidine 4 mg tablet 2024 025 [place] [facility], [address] [place] [address], [address], 5 11:07:15 amoxicillin 500 mg capsule 2024 025 [email or web address] [facility], [address] [place] [address], [address], 5 15:19:09 diclofenac 1 % topical gel 2023 024 [email or web address] [facility], [address] [place] [address], [address], 4 07:52:05 Patient TargetsNo targets recorded. Patient InstructionsNo instructions recorded. Reason for Referral None Reported. Results Created Date Observation Date Name Description Value Unit Range Abnormal Flag Note LastModifiedBy Organization Detail LastModifiedTime 03/20/20 24 09/13/2023 imagi ng/di agnos tic resul t No observ ation record ed. [email or web address] Not Available 02/21 04:38:44 04/02/20 24 04/02/2024 XR, knee, 3 view [email or web address]:/ [email or web address] ?Encry pted=s hAaTro YD8dLq bEUv6g %2BXZw aYqtaq 0bqfl% 2Fg9IQ a4ajBk vP9nXo QUaueC m3YtLR FvZlgJ JJ8mAn HZtai3 0v6770 AC0Kqa n6DUKe hKiQtr MwF INTERFACE [facility] [address] [facility] [address], [place], [address], 04/02/2024 15:56:44 04/02/20 24 04/02/2024 XR, knee, 3 view [email or web address]:/ [email or web address] ?Encry pted=s hAaTro YD8dLq bEUv6g %2BXZw aYqtaq 0bqfl% 2Fg9IQ a4ajBk vP9nXo QUaueC m3YtLR FvZlg JJ8mAn HZtai3 4e3033 AC0Kqa n6DUKe hKiQtr MwF INTERFACE [facility] [address] [address], [place], [address], 04/02/2024 15:56:47 11/04/19 25 11/03/2024 XR, knee, 3 view [email or web address]:/ [email or web address] ?Encry pted=s hAaTro YD8dLq bEUv6g %2BXZw aYqtaq 0bqfl% 2Fg9IQ a4ajBk vP9nXo QUaueC m3YtLR FvZlg [facility] HZtai 5a4476 AC0KqY 3qFVKK hKiQtr MwF INTERFACE [facility] [address] [facility] [address], [place], [address], 11/03/2024 11:31:01 11/04/19 25 11/03/2024 XR, knee, 3 view [email or web address]:/ [email or web address] ?Encry pted=s hAaTro YD8dLq bEUv6g %2BXZw aYqtaq 0bqfl% 2Fg9IQ a4ajBk vP9nXo QUaueC m3YtLR FvZlgJ JJ8mAn HZtai3 0z7569 AC0KqY 3qFVKK hKiQtr MwF INTERFACE [facility] [address] [facility] [address], [place], [address], 11/03/2024 11:31:03 04/07/20 25 04/07/2025 XR, knee, 3 view [email or web address]:/ [email or web address] ?Encry pted=s hAaTro YD8dLq bEUv6g %2BXZw aYqtaq 0bqfl% 2Fg9IQ a4ajBk vP9nXo QUaueC m3YtLR FvZlgJ JJ8mAn HZtai3 9i8893 AC0Klb HiDU6u vKiQtr MwF INTERFACE [facility] [address] [facility] [address], [place], [address], 04/07/2025 11:14:26 04/07/20 25 04/07/2025 XR, knee, 3 view [email or web address]:/ [email or web address] ?Encry pted=s hAaTro YD8dLq bEUv6g %2BXZw aYqtaq 0bqfl% 2Fg9IQ a4ajBk vP9nXo QUaueC m3YtLR FvZlgJ JJ8mAn HZtai3 9p6990 AC0Klb HiDU6u vKiQtr MwF INTERFACE [facility] [address] [facility] [address], [place], [address], 04/07/2025 11:14:28 Result Notes Documentation Provider Name and Address Organization Details Recorded Time Xr, Knee, 3 View : [email or web address] Encrypted=znCbWqpYP3vVayB Uv6g%6BPRdsOkkrz3oplj%2Fg 1SAb9mqWzvG7sVdMVtiuCw8Pn CPDaBvyKSC3vBoZUfii72h806 9LK3Lazh1CUHnsOmVrvXfI Not Available [facility] 04/02/2024 15:56: 45 Xr, Knee, 3 View : [email or web address]? Encrypted=rtNdXuyAI3zAlpW Uv6g%8KWHxoHjeli6pzrq%2Fg 9WGh3olWgyB7jFfFMjkrLz5Xs IXKvWvfXFA6dMrGDkpv69e204 8HK0Ktzd9BWThwVkYnzQtM Not Available [facility] 04/02/2024 15:56: 47 Xr, Knee, 3 View : [email or web address]? Encrypted=ncEcBxgHB0gNqeG Uv6g%1MTYsbFgryo3dtgb%2Fg 0RJx3xpHlkQ4lXhXZotdQg3Cn KMMuBkuHUU5xOwWEjwg40s974 1EY4PsZ3mGUMHpJlIftIhM Not Available [facility] 11/03/2024 11:31: 02 Xr, Knee, 3 View : [email or web address]? Encrypted=ftXeVckPI4cElfA Uv6g%5TZKnfLpfji1iyws%2Fg 0UUw3wbQinW5eCgAEhrsNj2Kj GQAjKmnZDL5rYsWTpsz32r482 4NP2AkE2yVRJYvAzOdqBwT Not Available [facility] 11/03/2024 11:31: 03 Xr, Knee, 3 View : [email or web address]? Encrypted=akZqSpcQB6uAudN Uv6g%7TRYefHqygn0bupq%2Fg 3KUa5rhCliV2nUvVLoqqTv8Lo FFTbLnqBML7xPeIVwvq95p932 7BE6VlgLwYU8svPyBuqPxO Not Available [facility] 04/07/2025 11:14: 27 Xr, Knee, 3 View : [email or web address]? Encrypted=qaXwPujBF1lYtyH Uv6g%8EHCuhZdnjr8gzjc%2Fg 1WQi0hnPhmP2cJsXFoplIp6Tl PTEyMeoRBG6nBcORqiv60j794 7WF6VzkVgUU1kzDdYxlDdS Not Available [facility] 04/07/2025 11:14: 28 Problems Name Problem SNOMED Code Status Onset Date Resolution Date Notes Provider Name and Address Organization Details Recorded Time No complaints 531367471 Active Status : 'A'; Not Available [facility] 4 09:14:26 Pain of right knee joint 5207039083454 00 Active 2023 Víctor Gupta MD [address], [place], [address] , [facility] 4 12:05:08 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 Procedures Surgical History Date Name Laterality Status Provider Name and Address Organization Details Recorded Time 4 54310 Therapeutic Exercise (1:1) completed Hailey Dodson, SHIP[employer]S SURVEYOR [address], [place], [address], [facility] 01/02/2024 08:12:41 4 87075: Manual therapy completed Hailey Dodson, SHIP'S SUR[employer]YOR [address], [place], [address], [facility] 01/02/2024 08:12:41 4 14851 Therapeutic Exercise (1:1) completed Hailey Dodson, SHIP'S SUR[employer]YOR [address], [place], [address], [facility] 12/18/2023 11:45:23 4 06310: Manual therapy completed Hailey Dodson, SHIP'S SUR[employer]YOR [address], [place], [address], [facility] 12/18/2023 11:45:23 4 29371 Therapeutic Exercise (1:1) completed Hailey Dodson, SHIP'S SUR[employer]YOR [address], [place], [address], [facility] 12/16/2023 11:25:23 4 91186: Manual therapy completed Hailey Dodson, SHIP'S SURVEYOR [address], [place], [address], [facility] 12/16/2023 11:27:08 4 30859 Therapeutic Exercise (1:1) completed Gabriele Jiménez DPT [address], [place], [address], [facility] 12/11/2023 16:05:07 4 14054: Manual therapy completed KATHY ErvinT [address], [place], [address], [facility] 12/11/2023 16:05:08 4 63819 Therapeutic Exercise (1:1) completed Hailey Dodson, SHIP'S SURVEYOR [address], [place], [address], [facility] 12/04/2023 08:59:40 4 96899: Manual therapy completed Hailey Dodson, SHIP'S SUR[employer]YOR [address], [place], [address], [facility] 12/04/2023 08:55:29 4 96049 Therapeutic Exercise (1:1) completed Hailey Dodson, SHIP'S SUR[employer]YOR [address], [place], [address], [facility] 11/26/2023 03:14:51 4 58373: Manual therapy completed Hailey Dodson, SHIP'S SUR[employer]YOR [address], [place], [address], [facility] 11/26/2023 03:08:10 4 04732 Therapeutic Exercise (1:1) completed Hailey Dodson, SHIP'S SUR[employer]YOR [address], [place], [address], [facility] 11/26/2023 01:35:49 4 52306: Manual therapy completed Hailey Dodson, SHIP'S SURVEYOR [address], [place], [address], [facility] 11/26/2023 01:35:49 4 60651 Therapeutic Exercise (1:1) completed Hailey Dodson, SHIP'S SURVEYOR [address], [place], [address], [facility] 11/25/2023 05:34:58 4 09099: Manual therapy completed Hailey Dodson, SHIP'S SURVEYOR [address], [place], [address], [facility] 11/25/2023 05:34:58 4 80303 Therapeutic Exercise (1:1) completed KATHY ErvinT [address], [place], [address], [facility] 11/20/2023 13:00:27 4 31206: Manual therapy completed KATHY ErvinT [address], [place], [address], [facility] 11/20/2023 13:00:27 4 28108 Therapeutic Exercise (1:1) completed Hailey Dodson, SHIP'S SURVEYOR [address], [place], [address], [facility] 11/19/2023 12:24:40 4 18670: Manual therapy completed Hailey Dodson, SHIP'S SURVEYOR [address], [place], [address], [facility] 11/19/2023 12:24:40 4 15757 Therapeutic Exercise (1:1) completed Hailey Alcalae, SHIP'S SURVEYOR [address], [place], [address], [facility] 11/18/2023 17:20:52 4 50818: Manual therapy completed Hailey Alcalae, SHIP'S SURVEYOR [address], [place], [address], [facility] 11/18/2023 17:20:52 4 79207 Therapeutic Exercise (1:1) completed Hailey Alcalae, SHIP'S SURVEYOR [address], [place], [address], [facility] 11/18/2023 05:27:51 4 39291: Manual therapy completed Hailey Dodson, SHIP'S SURVEYOR [address], [place], [address], [facility] 11/18/2023 05:27:52 4 11882 Therapeutic Exercise (1:1) completed Hailey Alcalae, SHIP'S SURVEYOR [address], [place], [address], [facility] 2023 06:37:54 4 14107: Manual therapy completed Hailey Dodson, SHIP'S SURVEYOR [address], [place], [address], [facility] 2023 06:37:54 4 70987 Therapeutic Exercise (1:1) completed Hailey Schmittdge, SHIP'S SURVEYOR [address], [place], [address], [facility] 11/14/2023 08:32:35 4 20719: Manual therapy completed Hailey Alcalae, SHIP'S SURVEYOR [address], [place], [address], [facility] 11/14/2023 08:32:35 4 67139 Therapeutic Exercise (1:1) completed Gabriele Jiménez, DPT [address], [place], [address], [facility] 11/11/2023 16:05:55 4 86459: Manual therapy completed Gabriele Jiménez, DPT [address], [place], [address], [facility] 11/11/2023 16:05:59 4 38136 Therapeutic Exercise (1:1) completed Gabriele Jiménez, DPT [address], [place], [address], [facility] 11/07/2023 14:56:02 4 68606: Manual therapy completed Gabriele Jiménez, DPT [address], [place], [address], [facility] 11/07/2023 14:56:02 4 13484 Therapeutic Exercise (1:1) completed Hailey Dodson, SHIP'S SURVEYOR [address], [place], [address], [facility] 10/28/2023 13:01:34 4 18104: Manual therapy completed Hailey Dodson, SHIP'S SURVEYOR [address], [place], [address], [facility] 10/28/2023 13:01:34 4 30844 Therapeutic Exercise (1:1) completed Hailey Dodson, SHIP'S SURVEYOR [address], [place], [address], [facility] 10/25/2023 14:44:53 4 56521: Manual therapy completed Hailey Dodson, SHIP'S SURVEYOR [address], [place], [address], [facility] 10/25/2023 14:44:53 4 73775 Therapeutic Exercise (1:1) completed Damieana Fudge, SHIP'S SURVEYOR [address], [place], [address], [facility] 10/23/2023 16:12:47 4 15295: Manual therapy completed Damieana Fudge, SHIP'S SURVEYOR [address], [place], [address], [facility] 10/23/2023 16:12:47 4 49462 Therapeutic Exercise (1:1) completed Damieana Fudge, SHIP'S SURVEYOR [address], [place], [address], [facility] 10/23/2023 12:37:18 4 72706: Manual therapy completed Hailey Fudge, SHIP'S SURVEYOR [address], [place], [address], [facility] 10/23/2023 12:37:18 4 28180 Therapeutic Exercise (1:1) completed Damalana Fudge, SHIP'S SURVEYOR [address], [place], [address], [facility] 10/17/2023 11:40:26 4 68024: Manual therapy completed Hailey Schmittdge, SHIP'S SURVEYOR [address], [place], [address], [facility] 10/17/2023 11:40:26 4 07948 Therapeutic Exercise (1:1) completed Damieabe Fudge, SHIP'S SURVEYOR [address], [place], [address], [facility] 10/17/2023 10:22:56 4 32444: Manual therapy completed Damieana Fudge, SHIP'S SURVEYOR [address], [place], [address], [facility] 10/17/2023 10:22:56 4 18022 Therapeutic Exercise (1:1) completed Damieana Fudge, SHIP'S SURVEYOR [address], [place], [address], [facility] 10/14/2023 08:52:25 4 00852: Manual therapy completed Hailey Dodson, SHIP'S SURVEYOR [address], [place], [address], [facility] 10/14/2023 08:52:25 4 49314 Therapeutic Exercise (1:1) completed Hailey Dodson, SHIP'S SURVEYOR [address], [place], [address], [facility] 10/13/2023 16:19:03 4 01430: Manual therapy completed Hailey Dodson, SHIP'S SURVEYOR [address], [place], [address], [facility] 10/11/2023 08:45:24 4 36575 Therapeutic Exercise (1:1) completed Hailey Dodson, SHIP'S SURVEYOR [address], [place], [address], [facility] 10/08/2023 23:54:11 4 73512: Manual therapy completed Hailey Dodson, SHIP'S SURVEYOR [address], [place], [address], [facility] 10/08/2023 23:54:11 4 42335 Therapeutic Exercise (1:1) completed Hailey Dodson, SHIP'S SURVEYOR [address], [place], [address], [facility] 10/04/2023 08:36:40 4 12302: Manual therapy completed Hailey Dodson, SHIP'S SURVEYOR [address], [place], [address], [facility] 10/04/2023 08:36:40 4 59900 Therapeutic Exercise (1:1) completed KATHY ErvinT [address], [place], [address], [facility] 10/02/2023 14:00:10 39380: Manual therapy completed Gabriele Jiménez DPT [address], [place], [address], [facility] 10/02/2023 14:00:13 Imaging Results None recorded. Procedure Notes None recorded. Medical Equipment None Reported. Allergies No known drug allergies Medications Name Sig Start Date Stop Date Status Note LastModified by Organization Details LastModified Time celecoxib 200 mg capsule Take 1 capsule every day by oral route for 30 days. 04/07 completed Not Available Not Available Not Available amoxicillin 500 mg capsule TAKE FOUR CAPSULES BY MOUTH ONCE 1 HOUR PRIOR TO PROCEDURE active Not Available Not Available No t Available tizanidine 2 mg tablet TAKE ONE TABLET BY MOUTH EVERY 6 HOURS active Not Available Not Available No t Available triamcinolo ne acetonide 0.5 % topical cream APPLY TO AFFECTED AREA S) TWO TIMES A DAY 04/07 completed Not Available Not Available Not Available ibuprofen 800 mg tablet TAKE ONE TABLET BY MOUTH THREE TIMES A DAY WITH FOOD NEEDED FOR PAIN active Not Available Not Available No t Available tizanidine 4 mg tablet TAKE ONE TABLET BY MOUTH EVERY 8 HOURS NEEDED FOR SPASMS FOR 14 DAYS 04/07 completed Not Available Not Available Not Available fexofenadin e 180 mg tablet TAKE ONE TABLET BY MOUTH EVERY DAY 04/07 completed Not Available Not Available Not Available oxycodone-a cetaminophe n 5 mg-325 mg tablet TAKE 1 TABLET BY MOUTH EVERY 4 TO 6 HOURS NEEDED FOR PAIN 10/13 completed Not Available Not Available Not Available methotrexat e sodium 2.5 mg tablet TAKE 8 TABLETS BY MOUTH ONCE A WEEK DIRECTED [...] TWICE A DAY DIRECTED STARTING AFTER SURGERY 04/07 completed Not Available Not Available Not Available gabapentin 300 mg capsule TAKE ONE CAPSULE BY MOUTH EVERY DAY 04/07 completed Not Available Not Available Not Available omeprazole 20 mg capsule,del ayed release [...] TAKE ONE CAPSULE BY MOUTH EVERY DAY 04/07 completed Not Available Not Available Not Available Ventolin HFA 90 mcg/actuati on aerosol [...] Updated DateTime 10/02/2024 157.48 cm 27.3 kg/m2 90374.26 g Jaz Lu [facility] 10/02/2024 11:02:56 Date Recorded Body height Body mass index (BMI) Body weight Provider Name and Address Organization Details Last Updated DateTime 11/03/2024 157.48 cm 27.3 kg/m2 30031.26 g Juan Pablo Alonsogrisel [facility] 11/03/2024 11:22:56 Date Recorded Body height Provider Name an d Address Organization Details Last Updated DateTime 04/02/2024 157.48 cm ORTEGA HIGHTOWER [facility] 04/02/2024 15:50:25 Date Recorded Body height Provider Name an d Address Organization Details Last Updated DateTime 04/07/2025 157.48 cm Sirisha St[facility]ard [facility] [facility] 04/07/2025 11:03:43 Date Recorded Body height Body mass index (BMI) Body weight Provider Name and Address Organization Details Last Updated DateTime 07/02/2024 157.48 cm 27.3 kg/m2 70841.26 g KAYLIA L'HEUREUX [facility] 07/02/2024 10:29:38 Social History Question Answer Notes LastModified by [employer] Details LastModified Time Tobacco Smoking Status Never Smoker KAYLIA L'HEUREUX [facility] 10/14/2023 14:12:53 What Is Your Relationship Status? Single Information not available 10/14/2023 Sex: Unknown Functional Status Question Answer Note LastModified by [employer] Details LastModified Time Do you use [...] Problems N Vascular Disease N Heart Attack (NE) N Gastrointestinal Disease N Diabetes N Autoimmune [...] Diagnosis SNOMED-CT Code Diagnosis ICD10 Code Diagnosis IMO Codes Diagnosis Note [id number] Gabriele Jiménez , DPT [facility] [address] [place] [address] 10/02/2023 11:53:56 10/02/2023 14:41:32 Aftercare 480602200 Z47.1 History of right total knee replacement 5257503498 283039 96.831 [id number] Damtatyanaana Fudge, [employer] [facility] [address] [place] [address] 10/04/2023 09:36:29 10/04/2023 16:10:14 Aftercare [id number] Z47.1 History of right total knee replacement 0743291652 108794 96.993 [id number] Damtatyanaana Fudge, [employer] [facility] [address] [place] [address] 10/08/2023 15:25:35 10/08/2023 16:25:00 Aftercare [id number] Z47.1 History of right total knee replacement 6788093711 948290 Z96.870 [id number] Damieana Fudge, [employer] [facility] [address] [place] [address] 10/11/2023 13:09:49 10/11/2023 14:25:54 Aftercare [id number] Z47.1 History of right total knee replacement 2832751679 407626 96.577 [id number] Damieana Fudge, [employer] [facility] [address] [place] [address] 10/14/2023 14:49:05 10/14/2023 15:59:49 Aftercare [id number] Z47.1 History of right total knee replacement 5430958080 579175 Z96.799 [id number] Jesse Mccormack PA-C [facility] [address] [place] [address] 10/14/2023 14:02:59 10/14/2023 14:46:40 History of right total knee replacement 4439450915 484986 Z96.062 [id number] Damieana Fudge, [employer] [facility] [address] [place] [address] 10/16/2023 13:20:42 10/16/2023 14:52:13 Aftercare 853573184 Z47.1 History of right total knee replacement 0166593396 375775 Z96.492 [id number] Damieana Fudge, [employer] [facility] [address] [place] [address] 10/17/2023 10:18:18 10/17/2023 11:15:25 Aftercare 329131544 Z47.1 History of right total knee replacement 6799963520 500265 Z96.532 [id number] Samariaana Fudge, [employer] [facility] [address] [place] [address] 10/22/2023 11:50:22 10/22/2023 14:10:51 Aftercare 649393111 Z47.1 History of right total knee replacement 4165635774 988573 Z96.993 [id number] Damieana Fudge, [employer] [facility] [address] [place] [address] 10/23/2023 12:43:05 10/23/2023 13:37:48 Aftercare 500977062 Z47.1 History of right total knee replacement 2077696549 820626 Z96.524 [id number] Damtatyanaana Fudge, [employer] [facility] [address] [place] [address] 10/25/2023 13:19:59 10/25/2023 14:13:00 Aftercare 261931136 Z47.1 History of right total knee replacement 6282147558 187642 Z96.798 [id number] Hailey Dodson, [employer] [facility] [address] [place] [address] 10/28/2023 12:51:30 10/28/2023 13:40:37 Aftercare 022402437 Z47.1 History of right total knee replacement 6279974471 219760 Z96.063 [id number] Jesse Mccormack PA-C [facility] [address] [place] [address] 10/31/2023 15:00:29 11/20/2023 16:09:35 History of right total knee replacement 2584243227 210457 Z96.859 [id number] Víctor Gupta MD [facility] [address] [place] [address] 11/06/2023 11:21:42 11/27/2023 11:59:28 History of right total knee replacement 0371406155 958891 Z96.651 Pain of ri ght knee joint 8049724100 29157 M25.554 [id number] Gabriele Jiménez , DPT [facility] [address] [place] [address] 11/07/2023 12:53:45 11/07/2023 13:56:37 Aftercare 887280256 Z47.1 History of right total knee replacement 5234162458 108900 Z96.883 [id number] Gabriele Jiménez DPT [facility] [address] [place] [address] 11/11/2023 08:59:58 11/11/2023 13:42:31 Aftercare 037805858 Z47.1 History of right total knee replacement 8886825035 460988 Z96.048 [id number] Hailey Dodson, [employer] [facility] [address] [place] [address] 11/12/2023 15:18:29 11/12/2023 16:07:26 Aftercare 907627629 Z47.1 History of right total knee replacement 2320060186 299142 Z96.748 [id number] Damieana Fudge, [employer] [facility] [address] [place] [address] 11/13/2023 10:20:27 11/13/2023 11:07:10 Aftercare 642391371 Z47.1 History of right total knee replacement 0952568693 608867 Z96.372 [id number] Damieana Fudge, [employer] [facility] [address] [place] [address] 11/14/2023 12:54:14 11/14/2023 13:54:27 Aftercare 641811961 Z47.1 History of right total knee replacement 4375013665 952297 Z96.186 [id number] Damieana Fudge, [employer] [facility] [address] [place] [address] 11/18/2023 16:00:59 11/18/2023 16:35:22 Aftercare 712189473 Z47.1 History of right total knee replacement 8561810461 275067 Z96.846 [id number] Damieana Fudge, [employer] [facility] [address] [place] [address] 11/19/2023 11:57:00 11/19/2023 13:33:26 Aftercare 414539134 Z47.1 History of right total knee replacement 4803762371 893574 Z96.906 [id number] Gabriele Jiménez , DPT [facility] [address] [place] [address] 11/20/2023 12:54:10 11/20/2023 15:51:05 Aftercare 662394634 Z47.1 History of right total knee replacement 5550324257 446532 Z96.079 [id number] Damieana Fudge, [employer] [facility] [address] [place] [address] 11/21/2023 15:20:48 11/21/2023 17:28:01 Aftercare 275363689 Z47.1 History of right total knee replacement 1092546312 375954 Z96.518 [id number] Damieana Fudge, [employer] [facility] [address] [place] [address] 11/22/2023 10:29:53 11/22/2023 11:24:15 Aftercare 691621816 Z47.1 History of right total knee replacement 1589031794 188670 Z96.794 [id number] Hailey Dodson, [employer] [facility] [address] [place], [place] [address] 11/25/2023 13:56:50 11/25/2023 14:30:35 Aftercare 657445527 Z47.1 History of right total knee replacement 3345532385 532449 Z96.183 [id number] Mary Jane Apple PA-C [facility] [address] [place] [address] 11/25/2023 14:39:49 11/25/2023 15:36:05 Postoperative pain 710434152 G89.18 [id number] Víctor Gupta MD [facility] [address] [place] [address] 12/04/2023 11:03:12 12/26/2023 10:32:34 History of right total knee replacement 1775379804 855750 Z96.150 [id number] Hailey Dodson, [employer] [facility] [address] [place] [address] 12/03/2023 10:28:02 12/03/2023 11:03:57 Aftercare 475199682 Z47.1 History of right total knee replacement 3554162640 176177 Z96.086 [id number] Gabriele Jiménez , DPT [facility] [address] [place] [address] 12/11/2023 11:00:34 12/11/2023 11:51:33 Aftercare 964617695 Z47.1 History of right total knee replacement 6854958117 197205 Z96.381 [id number] Hailey Dodson, [employer] [facility] [address] [place] [address] 12/13/2023 08:48:51 12/13/2023 10:04:52 Aftercare 569942161 Z47.1 History of right total knee replacement 9058575964 914949 Z96.622 [id number] Hailey Dodson, [employer] [facility] [address] [place] [address] 12/18/2023 11:10:22 12/18/2023 11:33:57 Aftercare 956622296 Z47.1 History of right total knee replacement 1618021503 543218 Z96.596 [id number] Hailey Dodson, [employer] [facility] [address] [place] [address] 12/30/2023 09:31:33 12/30/2023 10:14:23 Aftercare 588825321 Z47.1 History of right total knee replacement 7374961460 366736 Z96.324 [id number] Víctor Gupta MD [facility] [address] [place] [address] 01/15/2024 15:12:09 02/04/2024 16:11:42 History of right total knee replacement 0544138132 217166 Z96.249 [id number] Víctor Gupta MD [facility] [address] [place] [address] 04/02/2024 15:46:22 04/23/2024 10:40:12 History of right total knee replacement 9311153063 567572 Z96.089 [id number] Jesse Mccormack PA-C [facility] [address] [place] [address] 07/02/2024 10:01:50 07/28/2024 13:45:02 History of right total knee replacement 6446611952 064444 Z96.651 [id number] [id number] Jesse Mccormack PA-C [facility] [address] [place] [address] 10/02/2024 10:49:13 10/16/2024 07:24:38 History of right total knee replacement 6773467414 781583 Z96.651 [id number] Víctor Gupta MD [facility] [address] [place] [address] 11/03/2024 11:10:01 11/13/2024 12:36:41 History of right total knee replacement 4310535874 538927 Z96.651 [id number] MD [facility] [address], [place] [address] 04/07/2025 10:52:41 04/15/2025 09:49:55 Pain associated with prosthesis of knee joint 573584136 T84.84XD Z96.651 [id number] Health Concerns Section Related Observation LastModified by Organization Detai ls LastModified Time None Recorded Concern Status LastModified by Organization Details LastModified Time None Recorded Advance Directives Directive None Recorded Payers Insurance Date Sequence Insurance Name Policy Number Policy Fowler Covered Member ID Fowler Member ID Guarantor Name 04/15/2025 1 [facility] NET PLAN (MEDICAID HMO) [place] Brandi A Damon Monteiro [id number] Brandi Damon Monteiro OBGyn Episode No OBEpisode recorded.
[2025-05-31 10:37] LABS: Appearance Urine Clear; Glucose Urine UA Negative (Negative); MANUAL DIFF FLAG NO; PH 5.5 (5.0-9.0); Specific Gravity - Urine 1.025 (1.005-1.025)
[2025-05-31 10:48] LABS: Hematocrit 39.1 % (37.0-47.0); Hemoglobin 12.7 g/dl (12.0-16.0); Imm Gran Abs Auto 0.02 X10*3/uL (0.00-0.03); Imm Gran Pct Auto 0.3 % (0.0-0.4); Lymphocytes Absolute Auto 1.6 X10*3/uL (1.2-4.9); Mean Corpuscular HGB Conc 32.5 g/dl (31.0-35.0); Mean Corpuscular Hemoglobin 29.1 pg (27.0-33.0); Mean Corpuscular Volume 89.7 fL (80.0-98.0); NRBC Abs Auto 0.000 X10*3/uL (0.0-0.012); NRBC Pct Auto 0.0 /100WBC (0.0-0.2); Platelet Count 360 X10*3/uL (160-400); Red Blood Count 4.36 X10*6/uL (4.20-5.50); White Blood Count 5.9 X10*3/uL (4.8-10.8)
[2025-05-31 11:30] LABS: Alanine Aminotransferase 14 U/L (0-31); Albumin Level 4.3 g/dL (3.5-5.0); Alkaline Phosphatase 60 U/L (39-117); Anion Gap 12 (12-20); Aspartate Amino Transferase 18 U/L (5-31); Blood Urea Nitrogen 15 mg/dL (9-16); Calcium 9.4 mg/dL (8.4-10.2); Carbon Dioxide 25 mmol/L (22-29); Chloride 108 mmol/L (96-108); Cholesterol 217 mg/dL (<200); Estimated Glomerular Filt Rate > 60; HDL Cholesterol 78 mg/dL (>40); Potassium 3.9 mmol/L (3.3-5.1); Sodium 141 mmol/L (135-145); Total Protein 7.2 g/dL (6.5-8.0); Triglycerides 61 mg/dL (<150)
[2025-05-31 11:34] LABS: Free T4 (Free Thyroxine) 1.01 ng/dL (0.71-1.85); Thyroid Stimulating Hormone 0.62 uIU/mL (0.32-4.0)
[2025-05-31 11:52] LABS: Folate 10.8 ng/mL (> or = 4.0); Vitamin B12 1206 pg/mL (200-900)
== END 2025-05-31 08:23 | disposition home or self-care (01) ==
LOC: HO.10HDL 08:22
PROVIDERS: Visit Provider Internal Medicine
DX: K21.9 Gastro-esophageal reflux disease without esophagitis (principal); R30.0 Dysuria; E78.00 Pure hypercholesterolemia, unspecified
CPT/HCPCS: 36415; 80053; 80061; 81003; 82306; 82607; 82746; 83036; 84439; 84443; 85025

== ENCOUNTER 2025-06-01 10:28 | Outpatient (AMB) | payer OTHER, SELFPAY ==
[2025-06-01 10:36] VITALS: BP 128/90; PULSE 89; TEMP 36.3; O2SAT 97; BMI 26.5
--- NOTE | 2025-06-01 10:36 | A.OFFPC_ITS ---
Vital Signs 06/01/25 10:36 Height 5 ft 2 in Weight 145 lb BMI 26.5 BP 128/90 H Blood Pressure Location Lt brachial Position Sitting Pulse 89 Pulse Source Pulse Oximeter Temp 97.3 F Temp Source Temporal Artery Scan Pulse Oximetry (%) 97 Oxygen Delivery Method Room Air Intake Visit Reasons: gerd asthma Allergies leflunomide Allergy (Unknown, Verified 06/01/25 10:40) abd pain oseltamivir Adverse Reaction (Unknown, Verified 06/01/25 10:40) dizziness, headaches, ringing in the ears ?IVP dye Allergy (Unknown, Uncoded 06/01/25 10:40) headache, nausea unknown arthrits medication Allergy (Unknown, Uncoded 06/01/25 10:40) stomach upset Contrast Allergy PreMed Pack Adverse Reaction (Unknown, Uncoded 06/01/25 10:40) stomach upset Medication List - Last Reconciled 06/01/25 by Lydia Thomas PoMD albuterol sulfate 90 mcg/actuation (Ventolin HFA) 2 puffs inhalation Q6H PRN budesonide 90 mcg/actuation (Pulmicort Flexhaler) 1 inh inhalation BID cholecalciferol (vitamin D3) 50 mcg PO DAILY 90 days folic acid 1 mg PO DAILY hydrocodone-acetaminophen 5-300 mg 1 tab PO BID PRN ibuprofen 800 mg PO .QD prn loratadine 10 mg PO DAILY methotrexate sodium 17.5 mg PO QWEEK tizanidine 4 mg PO .QD Tobacco use date assessed: 06/01/25 Dental Screening Dental Screen Date: 06/01/25 Did you have a dental visit in the last 12 months?: No Did you have a dental problem in the last 6 months where you did not have access to dental care?: No Was dental information given to patient?: Patient has dentist [facility] Medical History Vaginal atrophy Lumbar degenerative disc disease Vitamin D deficiency Allergic rhinitis Hypothyroid Asthma Cervical cancer screening Rheumatoid arthritis Breast cancer screening, high risk patient Surgical History History of total right knee replacement S/P panniculectomy H/O tubal ligation History of cholecystectomy History of sleeve gastrectomy History of breast biopsy History of gastric surgery (12/2015) History of removal of laparoscopic gastric banding device (10/03/15) Hx of laparoscopic gastric banding (01/2010) Family History Father Family history of prostate cancer, Onset Age: 70 Mother History of breast cancer, Onset Age: 55 Sister History of breast cancer, Onset Age: 47 Maternal Grandmother History of breast cancer, Onset Age: 58 Colon cancer Maternal Aunt History of breast cancer, Onset Age: 37 Maternal Aunt History of breast cancer, Onset Age: 40 Sister Bone cancer Social History Housing: Apartment Alcohol intake: former Comment: last time years ago Patient Tobacco Use Status: Never used Tobacco Tobacco use type: Cigarette e-Cigarette/Vaping Use: Never Used Second Hand Smoke Exposure: No service: No Current occupational status: unemployed Cognitive needs: No Hearing needs: No Vision needs: No Female Reproductive History Menstrual Age of Menarche: 8 Questionnaire PHQ-9 Over the last 2 weeks, how often have you been bothered by any of the following problems? 1. Little interest or pleasure in doing things: not at all 2. Feeling down, depressed, or hopeless: not at all 3. Trouble falling or staying asleep, or sleeping too much: not at all 4. Feeling tired or having little energy: not at all 5. Poor appetite or overeating: not at all 6. Feeling bad about yourself - or that you are a failure or have let yourself or your family down: not at all 7. Trouble concentrating on things, such as reading the newspaper or watching television: not at all 8. Moving or speaking so slowly that other people could have noticed. Or the opposite - being so fidgety or restless that you have been moving around a lot more than usual: not at all 9. Thoughts that you would be better off or of hurting yourself in some way: not at all Total score: 0 Depression Screening Interpretation: Negative Depression Screening Done: Yes Source: Developed by Drs. Jean Pierre Mcdaniel, Mayra Kilgore, Jerrod Ruth and colleagues, with an educational christiano from [employer]. Thrive Questionnaire Date Thrive assessed: 11/27/24 I am a: Patient What is your living situation today?: I have a steady place to live Within the past 12 months, did the food you bought not last and you didn't have the money to get more?: Never true Within the past 12 months, did you worry whether your food would run out before you got money to buy more?: Never true Do you have trouble paying for medicines?: No Do you have trouble getting transportation to medical appointments?: No Do you have trouble paying your heating and electricity bill?: No Do you have trouble taking care of your child, family member or friend?: No Do you have trouble with day-to-day activities such as bathing, preparing meals, shopping, managing finances, etc.?: No Are you currently unemployed and looking for a job?: No Are you interested in more education?: No Please select the resources that you would like help with: None Currently or been in a relationship where the following occur: No concerns reported THRIVE Score: 0 AUDIT C Alcohol Use Questionnaire (AUDIT-C) 1. How often do you have a drink containing alcohol?: Never 3. How often do you have six or more drinks on one occasion?: Never Total Score: 0 JASMIN-7 AMB Questionnaire JASMIN-7 Date JASMIN - 7 assessed: 08/05/24 Feeling nervous, anxious, or on edge: 0 = Not at all Not being able to stop or control worryin = Not at all Worrying too much about different things: 0 = Not at all Trouble relaxin = Not at all Being so restless that it is hard to sit still: 0 = Not at all Becoming easily annoyed or irritable: 0 = Not at all Feeling afraid as if something awful might happen: 0 = Not at all Total JASMIN-7 score (0-4 normal; 5-9 mild; 10-14 moderate; 15-21 severe): 0 Source: Developed by Drs. Jean Pierre Mcdaniel, Mayra Kilgore, Jerrod Ruth and colleagues, with an educational christiano from [employer]. Physical exam (Primary Care) Vital Signs: Last Vital Signs Temp 97.3 F 06/01/25 10:36 Pulse 89 06/01/25 10:36 BP 128/90 H 06/01/25 10:36 Pulse Ox 97 06/01/25 10:36 Oxygen Delivery Method Room Air 06/01/25 10:36 BMI result Body Mass Index 26.5 Tobacco/Smoking Status: Tobacco use Status Tobacco use date assessed 06/01/25 06/01/25 10:41 Patient Tobacco Use Status Never used Tobacco 06/01/25 10:41 Tobacco use type Cigarette 06/01/25 10:41 e-Cigarette/Vaping Use Never Used 06/01/25 10:41 PHQ-9: PHQ-9 Score PHQ-9: Total score 0 06/01/25 11:04 Depression Screening Interpretation: Negative Thrive Assessment: Date of Thrive Assessment Date Thrive assessed 11/27/24 06/01/25 10:41 Currently or been in a relationship where the following occur: No concerns reported Const General: alert; No acute distress Eyes Conjunctivae: conjunctivae normal Resp Auscultation: clear to auscultation bilaterally Cardio Rate: regular rate Rhythm: regular rhythm GI Inspection: Yes normal to inspection Extrem General: Yes normal to inspection and No edema Coding Level of Care Code Est Pt Level 4 (81879) Complex EM visit Add On G2211 Diagnoses Impaired glucose tolerance R73.02 Hypercholesterolemia E78.00 History of sleeve gastrectomy Z90.3 GERD (gastroesophageal reflux disease) K21.9 Family history of breast cancer Z80.3 Rheumatoid arthritis M06.9 Asthma J45.909 Assessment & Plan Assessment & Plan (1) Impaired glucose tolerance: Code(s): R73.02 - Impaired glucose tolerance (oral) Category: Medical Plan: Decrease the amount of carbohydrate intake, pasta, bread, rice and potatoes are all sugar and that is aside from all the sweet stuff, remember that fruits are good but they are Sweet also. (2) Hypercholesterolemia: Code(s): E78.00 - Pure hypercholesterolemia, unspecified Category: Medical Plan: Avoid fried foods, chicken skin, eggs, butter margarine, pastries and meat. Be it pork or beef they have a lot of cholesterol patient's last blood work within normal limits LDL goal of less than 130 and triglyceride of less than 150 (3) History of sleeve gastrectomy: Comment: December 2015 Code(s): Z90.3 - Acquired absence of stomach [part of] Category: Surgical Plan: Continue to follow-up with bariatric (4) GERD (gastroesophageal reflux disease): Code(s): K21.9 - Gastro-esophageal reflux disease without esophagitis Category: Medical Plan: Avoid the foods that causes that usually spicy foods, tomato products, juices, coffee, soda and foods that your sensitive to. After eating do not lie down, allow 3-4 hours before in lie down. And keep the head of bed above 30 degrees to avoid the acid from going up. (5) Family history of breast cancer: Comment: MRI breast July 2022 Code(s): Z80.3 - Family history of malignant neoplasm of breast Category: Medical Plan: Patient follows up with the surgeon and is up-to-date with mammogram (6) Rheumatoid arthritis: Code(s): M06.9 - Rheumatoid arthritis, unspecified Category: Medical Plan: Continue to follow-up with Rheumatology on methotrexate. Patient is on folic acid (7) Asthma: Code(s): J45.909 - Unspecified asthma, uncomplicated Category: Medical Plan: Patient on Pulmicort and Ventolin Plan History of Present Illness The patient is a 59-year-old overweight female presenting for a follow-up visit after a physical exam in November. Her past medical history is significant for a sleeve gastrectomy in December 2015, asthma, rheumatoid arthritis, hypercholesterolemia, and GERD. For her rheumatoid arthritis, she follows up with a brushing machine operator and is prescribed methotrexate and folic acid. She reports increased joint pain today, which she attributes to the cold weather. For asthma, she is on Pulmicort and Ventolin. Regarding health maintenance, her last mammogram is up to date until April 2025, and she follows with a surgeon for breast cancer screening. Her last colon test was in 2016. Her immunizations, including flu, shingles, tetanus, and pneumonia shots, are up to date. Recent blood work from May 31, 2025, showed a normal blood count with no anemia, normal electrolytes, and normal renal and liver function. Her LDL cholesterol was 127 mg/dL and HDL was 78 mg/dL. Her vitamin B12 level was elevated at 1200, and she has since stopped taking multivitamins. Vitamin D, folic acid, and thyroid function were all within normal limits. Her fasting blood sugar was normal at 86 mg/dL, but her hemoglobin A1c was 5.9%, indicating impaired glucose tolerance. Health Maintenance A one-year prescription for loratadine was refilled. The patient will continue to follow up with her bariatric surgeon. Advised to continue a healthy diet, stay hydrated, and remain active. Plan for follow-up in 6 months to review lab work. Social History - Diet: The patient was counseled to reduce intake of foods high in sugar, such as pasta, bread, rice, and potatoes. - Exercise: The patient was advised to keep herself active. - Supplement Use: The patient takes folic acid with methotrexate but has stopped taking other multivitamins due to elevated vitamin B12 levels. Review of Systems - Musculoskeletal: Reports increased joint pain today. - Constitutional: Denies swelling. Physical Exam - Extremities: No edema. Results - Labs (05/31/2025): - Complete Blood Count: Normal, with no anemia. - Comprehensive Metabolic Panel: Normal electrolytes and renal function. - Liver Function Tests: Normal. - Fasting Blood Sugar: 86 mg/dL. - Hemoglobin A1c: 5.9%. - Lipid Panel: LDL 127 mg/dL, HDL 78 mg/dL. - Vitamin B12: 1200 pg/mL (High). - Vitamin D: Normal. - Folic Acid: Normal. - Thyroid Function: Normal. - Screenings: - Mammogram: Up to date (April 2025). - Colon Test: Last performed in 2016. Plan Patient was informed and verbally consented to the use of an ambient scribe for clinic note documentation during this visit. 1. Impaired Glucose Tolerance The patient's hemoglobin A1c of 5.9% indicates impaired glucose tolerance, though her fasting blood sugar is normal at 86 mg/dL. This is not in the diabetic range, so no medical treatment is required at this time. The patient was counseled on dietary changes to limit sugar intake, including from sources like pasta, bread, rice, and potatoes. A request for fasting blood work will be provided to recheck her sugars in 6 months. 2. Hypercholesterolemia The patient's LDL cholesterol is 127 mg/dL, which meets the goal of less than 130 mg/dL, and her HDL is protectively high at 78 mg/dL. Continue current management and monitoring. 3. Rheumatoid Arthritis The patient is on methotrexate and folic acid for her condition and is managed by a brushing machine operator. She will continue to follow up with her brushing machine operator. 4. Asthma The patient is on Pulmicort and Ventolin for her asthma. Continue current medications as prescribed. Discussion Notes I reviewed the patient's recent lab results with her. I explained that while her fasting blood sugar is normal, her hemoglobin A1c of 5.9% is slightly elevated, indicating impaired glucose tolerance or prediabetes. We discussed that this does not require medication at this time but warrants monitoring and lifestyle adjustments. I advised her to be mindful of her sugar intake, particularly from carbohydrates like pasta, bread, and rice. We also noted her cholesterol is well-controlled and her B12 level is high, con firming she should not resume taking multivitamins. We confirmed her vaccinations and cancer screenings are up to date. I provided a refill for her loratadine and a request form for follow-up fasting blood work to be completed in six months. Patient Instructions - Your lab results show that your blood sugar is slightly higher than normal, which is called prediabetes. - Please try to reduce the amount of sugar in your diet, including from foods like pasta, bread, rice, and potatoes. - No new medication is needed for your blood sugar at this time. - You have a lab form to get your blood work done again in 6 months. - Your prescription for loratadine has been refilled for one year. - Continue taking your methotrexate and folic acid as directed by your brushing machine operator. - Continue to stay active, eat a healthy diet, and drink plenty of fluids. Orders: Orders Free T4 (Free Thyroxine) 6 Months R73.02 - Impaired glucose tolerance (oral) Lipid Panel 6 Months E78.00 - Pure hypercholesterolemia, unspecified, R73.02 - Impaired glucose tolerance (oral) Vitamin B12 and Folate 6 Months R73.02 - Impaired glucose tolerance (oral) UA CC w/rflx Micro + Cult 6 Months R30.0 - Dysuria, R73.02 - Impaired glucose tolerance (oral) C Reactive Protein 6 Months R73.02 - Impaired glucose tolerance (oral) Hemoglobin A1c 6 Months R73.02 - Impaired glucose tolerance (oral) Comprehensive Met. Panel 6 Months R73.02 - Impaired glucose tolerance (oral) Complete Blood Count Auto Diff 6 Months R73.02 - Impaired glucose tolerance (oral) Thyroid Stimulating Hormone 6 Months R73.02 - Impaired glucose tolerance (oral) Vitamin D 25-OH Total 6 Months R73.02 - Impaired glucose tolerance (oral) Erythrocyte Sedimentation Rate 6 Months R73.02 - Impaired glucose tolerance (oral) Medications: Refilled loratadine 10 mg PO DAILY 90 tabs 3RF
--- OUTSIDE RECORDS SUMMARY | 2025-06-01 12:04 | XMS_ITS | Patient Health Record ---
Author Organization [facility] Address [address] [place] [address] Care Team Providers Care Business Planning Manager Name Role Phone Lydia Stanley MD Primary Care Provider Jean Pierre Hernandez [phone] Reason For Referral No Information Medications Medication [...] Problem Screening for malignant neoplasm of colon ([id number]) Encounter for screening for malignant neoplasm of colon (Z12.11) Active confirmed Problem Screening for malignant neoplasm of rectum ([id number]) Encounter for screening for malignant neoplasm of rectum (Z12.12) Active confirmed Problem Preprocedural examination (347664105527418) Preprocedural examination (Z01.818) Active confirmed Problem care home current use of non-steroidal anti-inflammatory drug ([id number]) NSAID long-term use (Z79.1) Active confirmed Plan Of Treatment Future Test Test Name Order Date COLONOSCOPY 11/02/2015 Insurance Providers Payer Name Payer Address Payer Phone Subscriber Number Group Number Insured Name Patient Relationship to Insured Coverage Start Date Coverage End Date [facility] [address] [place] [phone] [id number] BETSY BONILLA Self - patient is the insured Medical (General) History Medical History History ICD Code Denies [place],DM,CVA,renal disease Asthma Rheumatoid arthritis--sees Dr. Mcknight Surgical History Surgery Date(Month/Year) Gastric lap band-Dr. Haskins 2009 Gastric lap band removed--Dr. Georges Cholecystectomy
== END 2025-06-01 11:14 | disposition home or self-care (01) ==
LOC: HO.HMCH 10:29
PROVIDERS: PCP Internal Medicine; Visit Provider Internal Medicine
DX: R73.02 Impaired glucose tolerance (oral) (principal); E78.00 Pure hypercholesterolemia, unspecified; Z90.3 Acquired absence of stomach [part of]; K21.9 Gastro-esophageal reflux disease without esophagitis; Z80.3 Family history of malignant neoplasm of breast; M06.9 Rheumatoid arthritis, unspecified; J45.909 Unspecified asthma, uncomplicated

== ENCOUNTER → 2025-06-01 10:28 | Outpatient (BNVA) | payer OTHER, SELFPAY | PROVIDERS: PCP Internal Medicine; Visit Provider Internal Medicine | DX: R73.02 Impaired glucose tolerance (oral) (principal); E78.00 Pure hypercholesterolemia, unspecified; K21.9 Gastro-esophageal reflux disease without esophagitis; M06.9 Rheumatoid arthritis, unspecified; J45.909 Unspecified asthma, uncomplicated; Z80.3 Family history of malignant neoplasm of breast; Z90.3 Acquired absence of stomach [part of] | CPT/HCPCS: 99212 ==

== ENCOUNTER 2025-07-09 09:57 | Outpatient (AMB) | payer OTHER, SELFPAY ==
--- NOTE | 2025-07-09 10:00 | MHC.OFFVIS ---
Vital Signs 07/09/25 10:10 Height 5 ft 2 in Weight 143 lb 4.807 oz BMI 26.2 Intake Visit Reasons: 6 months breast exam Intake Note: Patient is seen in office for 6 month follow up visit, breast exam. Pt c/o: denies any changes or concerns mm:05/12/25 Accompanied by: Self / Same As Patient Allergies leflunomide Allergy (Unknown, Verified 07/09/25 10:10) abd pain oseltamivir Adverse Reaction (Unknown, Verified 07/09/25 10:10) dizziness, headaches, ringing in the ears ?IVP dye Allergy (Unknown, Uncoded 07/09/25 10:10) headache, nausea unknown arthrits medication Allergy (Unknown, Uncoded 07/09/25 10:10) stomach upset Contrast Allergy PreMed Pack Adverse Reaction (Unknown, Uncoded 07/09/25 10:10) stomach upset Medication List - Last Reconciled 07/12/25 by Bud Sabillon MD albuterol sulfate 90 mcg/actuation (Ventolin HFA) 2 puffs inhalation Q6H PRN budesonide 90 mcg/actuation (Pulmicort Flexhaler) 1 inh inhalation BID cholecalciferol (vitamin D3) 50 mcg PO DAILY 90 days folic acid 1 mg PO DAILY hydrocodone-acetaminophen 5-300 mg 1 tab PO BID PRN ibuprofen 800 mg PO .QD prn loratadine 10 mg PO DAILY methotrexate sodium 17.5 mg PO QWEEK tizanidine 4 mg PO .QD HPI Comments Details: 59-year-old female patient with a strong family history of breast cancer returning for a high-risk breast examination. Her family history includes her mother, sisters, maternal grandmother and maternal aunt all having breast cancer. Her maternal aunt from the disease. Her initial Alysha score was calculated at 30.9% placing her at high risk for breast cancer. Was previously followed by Dr. Bundy and annual mammogram and MRI breast evaluations performed. A previous right breast needle core biopsy was benign. Menarche was at age 10. She is in her 1st child was born when she was 17. Denies breast-feeding her children. She is postmenopausal her last menstrual period was the age of 48. Genetic testing in 2019 confirmed her remaining lifetime risk of breast cancer at approximately 31%. No clinically significant genetic mutations were identified and 1 rotation of unknown significance was identified. Her last mammogram of 05/12/2025 revealed benign changes with no mammographic evidence of malignancy and follow-up mammogram in 1 year is recommended. Her last breast MRI was in 2022 and she has declined any further MRIs due to difficulty with her knees following knee surgery. [facility] Medical History Vaginal atrophy Lumbar degenerative disc disease Vitamin D deficiency Allergic rhinitis Hypothyroid Asthma Cervical cancer screening Rheumatoid arthritis Breast cancer screening, high risk patient Surgical History History of total right knee replacement S/P panniculectomy H/O tubal ligation History of cholecystectomy History of sleeve gastrectomy History of breast biopsy History of gastric surgery (12/2015) History of removal of laparoscopic gastric banding device (10/03/15) Hx of laparoscopic gastric banding (01/2010) Family History Father Family history of prostate cancer, Onset Age: 70 Mother History of breast cancer, Onset Age: 55 Sister History of breast cancer, Onset Age: 47 Maternal Grandmother History of breast cancer, Onset Age: 58 Colon cancer Maternal Aunt History of breast cancer, Onset Age: 37 Maternal Aunt History of breast cancer, Onset Age: 40 Sister Bone cancer Social History Housing: Apartment Alcohol intake: former Comment: last time years ago Patient Tobacco Use Status: Never used Tobacco Tobacco use type: Cigarette e-Cigarette/Vaping Use: Never Used Second Hand Smoke Exposure: No service: No Current occupational status: unemployed Cognitive needs: No Hearing needs: No Vision needs: No Female Reproductive History Menstrual Age of Menarche: 8 Review of Systems Const Denies chills, Denies fever(s), Denies headache(s) and Denies poor appetite ENT Denies dizziness and Denies headache(s) Card Denies chest pain, Denies rapid heart rate, Denies palpitations and Denies slow heart rate Resp Denies chest congestion, Denies cough, Denies pain on inspiration and Denies wheezing GI Denies abdominal pain, Denies bloating, Denies change in stool character, Denies constipation, Denies diarrhea, Denies nausea, Denies vomiting and Denies hematemesis Denies nipple discharge Musc Details: Rheumatoid arthritis Skin/Breast Denies breast swelling, Denies breast skin changes, Denies breast pain, Denies breast mass, Denies change in breast shape, Denies change in pigmentation, Denies nipple discharge, Denies erythema and Denies rash Neuro Denies dizziness and Denies headache(s) Psych Denies anxiety and Denies depression Endo Denies palpitations Raphael/Lymph Denies easy bleeding, Denies easy bruising and Denies lymphadenopathy Aller/Immun Denies wheezing Physical Exam Vital Signs: BMI result Body Mass Index 26.2 Const General: cooperative, comfortable and well developed Nutritional Appearance: well nourished Orientation/consciousness: patient oriented x3 Eyes Sclerae: sclerae normal Chest Other: Left breast: No skin change, no nipple retraction, no nipple discharge, no palpable mass, no enlarged lymph nodes. Right breast: No skin change, no nipple retraction, no nipple discharge, no palpable mass, no enlarged lymph nodes Resp Effort & Inspection: normal respiratory effort, no cough, no respiratory distress and no stridor Cardio Jugular venous distension: no JVD Skin General skin exam: dry skin Rashes: no rashes Neuro Other: Mobility Assessment: 1. 3 meter assessment time (seconds) 5 2. Gait observations: Normal balance and gait General: patient oriented x3 and no focal motor deficits Extrem General: Yes full ROM and Yes no clubbing, cyanosis or edema Psych Appearance: grossly normal Assessment & Plan Assessment & Plan (1) Breast cancer screening, high risk patient: Comment: Alysha model 34% lifetime risk Code(s): Z12.39 - Encounter for other screening for malignant neoplasm of breast Category: Medical (2) Family history of breast cancer: Comment: MRI breast July 2022 Code(s): Z80.3 - Family history of malignant neoplasm of breast Category: Medical Plan 59-year-old female patient returning for a high-risk breast examination. Her most recent mammogram of 05/12/2025 revealed no suspicious changes (BI-RADS 2). Examination today also reveals no suspicious changes in either breast. She has declined further MRIs due to difficulty with her knees. We will continue her twice yearly clinical breast examination and yearly mammograms. She will follow up in 6 months. She is welcome to call sooner for any new concerns. Coding Level of Care Code Est Pt Level 3 (38628) Add On Problem Visit Only Diagnoses Breast cancer screening, high risk patient Z12.39 Family history of breast cancer Z80.3
[2025-07-09 10:10] VITALS: BMI 26.2
--- OUTSIDE RECORDS SUMMARY | 2025-07-09 11:08 | XMS_ITS | Patient Health Record ---
Author Organization [facility] Address [address] [place] [address] Care Team Providers Care Quality Control Scientist Name Role Phone Lydia Stanley MD Primary Care Provider Jean Pierre Hernandez [phone] Reason For Referral No Information Medications Medication SIG (Take, Route, Frequency, Duration) Notes Start Date End Date Status Methotrexate (PF) 15 MG/0.4ML Solution Auto-injector Subcutaneous 11/02/2015 Active HYDROcodone-Acetaminophen 7.5-325 MG Tablet (Schedule II Drug) TAKE 1 TO 2 TABLETS BY MOUTH TWICE A DAY NEEDED Oral; Duration: 28 Active Loratadine 10 MG Tablet TAKE 1 TABLET BY MOUTH EVERY DAY Oral; Duration: 30 Active Simponi 50 MG/0.5ML Solution Prefilled Syringe Subcutaneous A ctive MiraLax 1 Powder 1 bottle Orally as directed; Duration: 1 days 05/13/2016 Activ e ProAir HFA 108 (90 Base) MCG/ACT Aerosol Solution INHALE 2 PUFFS EVERY DAY Inhalation; Duration: 25 Active Dulcolax 5 MG Tablet Delayed Release 4 tablets Orally as directed; Duration: 1 days 05/13/2016 Activ e Ibuprofen 800 MG Tablet TAKE 1 TABLET BY MOUTH 3 TIMES A DAY NEEDED Oral; Duration: 30 Active Social History Social History Additional Details Category Social Info Options Details Miscellaneous: Marital status: single Occupation: unemployed Section Notes: Nonsmoker; no sig alcohol Problems Problem Type SNOMED Code ICD Code Onset Dates Problem Status W/U Status Risk Notes Problem Screening for malignant neoplasm of colon (034380826) Encounter for screening for malignant neoplasm of colon (Z12.11) Active confirmed Problem Screening for malignant neoplasm of rectum (512273450) Encounter for screening for malignant neoplasm of rectum (Z12.12) Active confirmed Problem Preprocedural examination (395038706952412) Preprocedural examination (Z01.818) Active confirmed Problem longterm current use of non-steroidal anti-inflammatory drug (000722301305036) NSAID long-term use (Z79.1) Active confirmed Plan Of Treatment Future Test Test Name Order Date COLONOSCOPY 11/02/2015 Insurance Providers Payer Name Payer Address Payer Phone Subscriber Number Group Number Insured Name Patient Relationship to Insured Coverage Start Date Coverage End Date [facility] [address] [place] [phone] [id number] BETSY BONILLA Self - patient is the insured Medical (General) History Medical History History ICD Code Denies [place],DM,CVA,renal disease Asthma Rheumatoid arthritis--sees Dr. Mcknight Surgical History Surgery Date(Month/Year) Gastric lap band-Dr. Haskins 2009 Gastric lap band removed--Dr. Georges Cholecystectomy
== END 2025-07-09 10:14 | disposition home or self-care (01) ==
LOC: HO.HGS 09:58
PROVIDERS: PCP Internal Medicine; Visit Provider Surgery
DX: Z12.39 Encounter for other screening for malignant neoplasm of breast (principal); Z80.3 Family history of malignant neoplasm of breast
CPT/HCPCS: 99213

== ENCOUNTER → 2025-07-09 09:57 | Outpatient (BNVA) | payer OTHER, SELFPAY | PROVIDERS: PCP Internal Medicine; Visit Provider Surgery | DX: Z12.39 Encounter for other screening for malignant neoplasm of breast (principal); Z80.3 Family history of malignant neoplasm of breast | CPT/HCPCS: 99212 ==